=== PATIENT | male | born 1955 | race African-American/Black ===

== ENCOUNTER 2016-08-12 13:58 | Inpatient (IN) | payer OTHER ==
[~2016-08-12] VITALS: Ht 172.7 cm; Wt 88.0 kg
[~2016-08-12 13:58] MED LIST: ALBU0.63 NEB; ALBU2.5V5 NEB; ALPR0.5T PO; ASPI-482 PO; AZIT250T6 PO; BUPR200T31 PO; CEFP200T PO; CLON0.5T3 PO; FLUT1DIS3 IH; FLUT9.9S NS; GUAI12003 PO; HYDR25TA PO; HYDR25TA9 PO; IBUP-1060 PO; IPRA3AMP NEB; MONT10TA9 PO; PRAV40TA2 PO; PRED-220 PO; PRED50TA PO; PROVENTIL HFA6.7 GM IH; TIOT18CA IH; TRAZ100T12 PO; VENTOLIN HFA18 GM INH
--- NOTE | 2016-08-12 14:27 | EKG ---
[facility] [address] [place] [address] Test Date: 2016-08-12 Test Time: 14:12:20 Pat Name: BRANDY JUNIOR Department: Room: Gender: Male [facility] [place]: : [id number] Requested By: ANDREW CORRIGAN Order Number: [id number] Reading MD: Eber Torrez Measurements Intervals [place] Rate: 101 P: [place]: QRS: -34 QRSD: 78 T: 43 QT: 332 QTc: 431 Interpretive Statements SR PVC Electronically Signed On 08-16-2016 9:31:39 CDT by Eber Torrez
[2016-08-12] MEDS ORDERED: MORPHINE SULFATE 10 MG/ML VIAL. IV ONE (14:30)
[2016-08-12] MEDS ORDERED: methylPREDNISolone SOD SUCC PF 125 MG/2 ML VIAL. IV ONE (14:30)
[2016-08-12] MEDS ORDERED: ONDANSETRON PF 4 MG/2 ML VIAL. IV ONE (14:30)
[2016-08-12] MEDS ORDERED: IPRATRPIUM/ALBUTEROL 0.5/2.5MG 3 ML NEBU. NEB ONE (14:30)
[2016-08-12] MEDS ORDERED: cloNIDine HCL 0.1 MG TABLET PO ONE (14:30)
[2016-08-12 14:40] LABS: BASO % 1 % (0-3); EOS % 1 % (0-3); HEMATOCRIT 44.8 % (39.0-53.0); HEMOGLOBIN 15.2 g/dL (13.0-17.5); LYMPH # 1.9 x10^3/uL (1.0-4.8); LYMPH % 35 % (24-48); MEAN CORPUSCULAR HEMOGLOBIN 28 pg (25-35); MEAN CORPUSCULAR HGB CONC 34 g/dL (31-37); MEAN CORPUSCULAR VOLUME 82 fL (79-100); MONO % 10 % (0-9); NEUT % 54 % (31-73); PLATELET COUNT 239 x10^3/uL (140-400); RED BLOOD COUNT 5.45 x10^6/uL (4.30-5.70); RED CELL DISTRIBUTION WIDTH 16.4 % (11.5-14.5); WHITE BLOOD COUNT 5.3 x10^3/uL (4.0-11.0)
[2016-08-12 14:49] LABS: INR 1.1 (0.8-1.1); PROTHROMBIN TIME PATIENT 13.4 SEC (11.7-14.0)
[2016-08-12 14:56] LABS: CALCIUM 9.5 mg/dL (8.5-10.1); CREATININE 0.6 mg/dL (0.7-1.3); GFR 166.3; POTASSIUM 3.7 mmol/L (3.5-5.1)
[2016-08-12 15:03] LABS: ALBUMIN 3.4 g/dL (3.4-5.0); ALBUMIN/GLOBULIN RATIO 0.7 (1.0-1.7); MAGNESIUM 1.6 mg/dL (1.8-2.4); TOTAL BILIRUBIN 1.1 mg/dL (0.2-1.0); TOTAL PROTEIN 8.2 g/dL (6.4-8.2)
--- NOTE | 2016-08-12 15:23 | RAD ---
Exam performed: One view chest. Indication: Shortness of air today, history of COPD Date of Service: 08/12/2016 4:24 PM Comparison: 04/21/16. Single AP upright portable view chest findings: Cardiomediastinal silhouette is within limits of normal. No acute infiltrates, effusion or pneumothorax is detected. The bony structures are normal. Impression: No acute cardiopulmonary process is detected.
[2016-08-12 15:26] LABS: BILIRUBIN,URINE NEGATIVE (NEG); GLUCOSE,URINE NEGATIVE (NEG); NITRITE,URINE NEGATIVE (NEG); PROTEIN,URINE NEGATIVE (NEG-TRACE)
[2016-08-12 15:32] LABS: BARBITURATES NEG (NEG); BENZODIAZEPINES NEG (NEG); CANNABINOIDS NEG (NEG); COCAINE NEG (NEG); METHADONE NEG (NEG); OPIATES POS (NEG); PHENCYCLIDINE NEG (NEG)
[2016-08-12 15:36] LABS: RBC,URINE RARE /HPF (0-2)
--- NOTE | 2016-08-12 15:36 | PHYS DOC ---
Past Medical History Past Medical History: Anxiety, CHF, COPD, Depression, Hypertension, Hepatitis Past Surgical History: Other Additional Past Surgical Histo: R. ELVA, Emilie. LEG Alcohol Use: None Drug Use: None Adult General Chief Complaint Chief Complaint: SHORTNESS OF BREATH HPI HPI Patient is a 61 year old male presenting to the emergency department for evaluation of shortness of breath that started several days ago and his worsening. She says that he has a history of COPD and thinks he may have congestive heart failure as well. He wears 2 L of oxygen at baseline and says he is bending to wear more. He has had a cough that is mostly nonproductive. No fevers chills nausea vomiting or other systemic symptoms. He says that he does feel some chest pain that is intermittent and that he can barely walk without getting severely dyspneic. Review of Systems Review of Systems Constitutional: Denies fever or chills [] Eyes: Denies change in visual acuity, redness, or eye pain [] HENT: Denies nasal congestion or sore throat [] Respiratory: + cough and shortness of breath [] Cardiovascular: + CP GI: Denies abdominal pain, nausea, vomiting, bloody stools or diarrhea [] : Denies dysuria or hematuria [] Musculoskeletal: Denies back pain or joint pain [] Integument: Denies rash or skin lesions [] Neurologic: Denies headache, focal weakness or sensory changes [] Current Medications Current Medications Current Medications Medications (Trade) Dose Ordered Sig/Isabel Start Time Stop Time Status Last Admin Dose Admin Albuterol/ Ipratropium (Duoneb) 3 ml 1X ONCE 08/12/16 14:30 08/12/16 14:31 DC 08/12/16 15:08 3 ML Clonidine HCl (Catapres) 0.1 mg 1X ONCE 08/12/16 14:30 08/12/16 14:31 DC 08/12/16 14:20 0.1 MG Fentanyl Citrate (Fentanyl 2ml Vial) 50 mcg PRN Q2HR PRN 08/12/16 15:45 08/13/16 15:44 Methylprednisolone Sodium Succinate (Solu-Medrol 125mg Vial) 125 mg 1X ONCE 08/12/16 14:30 08/12/16 14:31 DC 08/12/16 14:20 125 MG Morphine Sulfate 5 mg 1X ONCE 08/12/16 14:30 08/12/16 14:31 DC 08/12/16 14:20 5 MG Ondansetron HCl (Zofran) 4 mg PRN Q8HRS PRN 08/12/16 15:45 08/13/16 15:44 Allergies Allergies Allergies Coded Allergies Type Severity Reaction Last Updated Verified I S O L A T I O N *CONTACT* Allergy Unknown 03/31/16 Yes No Known Medication Allergies Allergy Unknown 03/22/16 Yes latex Allergy Unknown 08/12/16 Yes Physical Exam Physical Exam Constitutional: Well developed, well nourished, moderate respiratory distress, non-toxic appearance. [] HENT: Normocephalic, atraumatic, bilateral external ears normal, oropharynx moist, no oral exudates, nose normal. [] Eyes: PERRLA, EOMI, conjunctiva normal, no discharge. [] Neck: Normal range of motion, no tenderness, supple, no stridor. [] Cardiovascular:Heart rate regular rhythm, no murmur [] Lungs & Thorax: Bilateral breath sounds are quite diminished with inspiratory and expiratory wheezing Abdomen: Bowel sounds normal, soft, no tenderness, no masses, no pulsatile masses. [] Skin: Warm, dry, no erythema, no rash. [] Back: No tenderness, no CVA tenderness. [] Extremities: No tenderness, no cyanosis, no clubbing, ROM intact, + 1-2+ edema BL. [] Neurologic: Alert and oriented X 3, normal motor function, normal sensory function, no focal deficits noted. [] Current Patient Data Vital Signs Vital Signs Date Time Temp Pulse Resp B/P (MAP) Pulse Ox O2 Delivery O2 Flow Rate FiO2 08/12/16 15:09 99 Nasal Cannula 3.0 08/12/16 14:20 104 189/111 08/12/16 14:10 98.5 24 98.5 Lab Values Laboratory Tests Test 08/12/16 14:20 08/12/16 15:17 White Blood Count 5.3 x10^3/uL (4.0-11.0) Red Blood Count 5.45 x10^6/uL (4.30-5.70) Hemoglobin 15.2 g/dL (13.0-17.5) Hematocrit 44.8 % (39.0-53.0) Mean Corpuscular Volume 82 fL (79-100) Mean Corpuscular Hemoglobin 28 pg (25-35) Mean Corpuscular Hemoglobin Concent 34 g/dL (31-37) Red Cell Distribution Width 16.4 % (11.5-14.5) H Platelet Count 239 x10^3/uL (140-400) Neutrophils (%) (Auto) 54 % (31-73) Lymphocytes (%) (Auto) 35 % (24-48) Monocytes (%) (Auto) 10 % (0-9) H Eosinophils (%) (Auto) 1 % (0-3) Basophils (%) (Auto) 1 % (0-3) Neutrophils # (Auto) 2.8 x10^3uL (1.8-7.7) Lymphocytes # (Auto) 1.9 x10^3/uL (1.0-4.8) Monocytes # (Auto) 0.5 x10^3/uL (0.0-1.1) Eosinophils # (Auto) 0.0 x10^3/uL (0.0-0.7) Basophils # (Auto) 0.0 x10^3/uL (0.0-0.2) Prothrombin Time 13.4 SEC (11.7-14.0) Prothrombin Time INR 1.1 (0.8-1.1) PTT 31 SEC (24-38) Sodium Level 135 mmol/L (136-145) L Potassium Level 3.7 mmol/L (3.5-5.1) Chloride Level 98 mmol/L (98-107) Carbon Dioxide Level 29 mmol/L (21-32) Anion Gap 8 (6-14) Blood Urea Nitrogen 7 mg/dL (8-26) L Creatinine 0.6 mg/dL (0.7-1.3) L Estimated GFR (Cockcroft-Gault) 166.3 BUN/Creatinine Ratio 12 (6-20) Glucose Level 104 mg/dL (70-99) H Lactic Acid Level 1.5 mmol/L (0.4-2.0) Calcium Level 9.5 mg/dL (8.5-10.1) Magnesium Level 1.6 mg/dL (1.8-2.4) L Total Bilirubin 1.1 mg/dL (0.2-1.0) H Aspartate Amino Transferase (AST) 79 U/L (15-37) H Alanine Aminotransferase (ALT) 79 U/L (16-63) H Alkaline Phosphatase 82 U/L (46-116) Creatine Kinase 261 U/L (39-308) Troponin I Quantitative < 0.017 ng/mL (0.000-0.055) AK-Bwz-L-Type Natriuretic Peptide 39 pg/mL (0-124) Total Protein 8.2 g/dL (6.4-8.2) Albumin 3.4 g/dL (3.4-5.0) Albumin/Globulin Ratio 0.7 (1.0-1.7) L Lipase 70 U/L (73-393) L Ethyl Alcohol Level < 10 mg/dL (0-10) Urine Collection Type Void Urine Color Yellow Urine Clarity Clear Urine pH 7.0 Urine Specific [place] 1.010 Urine Protein Negative mg/dL (NEG-TRACE) Urine Glucose (UA) Negative mg/dL (NEG) Urine Ketones (Stick) Trace mg/dL (NEG) Urine Blood Negative (NEG) Urine Nitrite Negative (NEG) Urine Bilirubin Negative (NEG) Urine Urobilinogen Dipstick 1.0 mg/dL (0.2 mg/dL) Urine Leukocyte Esterase Negative (NEG) Urine RBC Rare /HPF (0-2) Urine WBC Rare /HPF (0-4) Urine Squamous Epithelial Cells Few /LPF Urine Bacteria 0 /HPF (0-FEW) Urine Opiates Screen Pos (NEG) Urine Methadone Screen Neg (NEG) Urine Barbiturates Neg (NEG) Urine Phencyclidine Screen Neg (NEG) Urine Amphetamine/Methamphetamine Neg (NEG) Urine Benzodiazepines Screen Neg (NEG) Urine Cocaine Screen Neg (NEG) Urine Cannabinoids Screen Neg (NEG) Urine Ethyl Alcohol Neg (NEG) Laboratory Tests 08/12/16 14:20 Laboratory Tests 08/12/16 14:20 EKG EKG Normal sinus rhythm at 91 beats per minutes with leftward axis no obvious ST elevation or depression and normal T waves. Radiology/Procedures Radiology/Procedures Exam performed: One view chest. Indication: Shortness of air today, history of COPD Date of Service: 08/12/2016 4:24 PM Comparison: 04/21/16. Single AP upright portable view chest findings: Cardiomediastinal silhouette is within limits of normal. No acute infiltrates, effusion or pneumothorax is detected. The bony structures are normal. Impression: No acute cardiopulmonary process is detected. DICTATED and SIGNED BY: JETT ALFORD MD DATE: 08/12/16 1520 Course & Med Decision Making Course & Med Decision Making Patient with acute COPD exacerbation and he was treated aggressively with IV steroids and breathing treatments. Patient is still dyspneic and says that he feels poorly so he'll be admitted for further observation and treatment. Dragon Disclaimer Dragon Disclaimer This electronic medical record was generated, in whole or in part, using a voice recognition dictation system. Departure Departure Impression: Primary Impression: COPD with acute exacerbation Disposition: ADMITTED INPATIENT Admitting Physician: Sera Cortes Condition: IMPROVED Referrals: NO PCP (PCP) ANDREW CORRIGAN DO August 12, 2016 15:36
[2016-08-12 15:37] LABS: BACTERIA,URINE 0 /HPF (0-FEW); SQUAMOUS EPITHELIAL CELL,UR FEW /LPF; WBC,URINE RARE /HPF (0-4)
[2016-08-12] MEDS ORDERED: ONDANSETRON PF 4 MG/2 ML VIAL. IV PRN (15:45)
[2016-08-12] MEDS ORDERED: fentaNYL PF VIAL 100 MCG/2 ML VIAL IV PRN (15:45)
[2016-08-12 16:45] VITALS: BP 139/93
[2016-08-12] MEDS ORDERED: hydrOXYzine 10 MG TABLET PO PRN (17:30)
[2016-08-12] MEDS: IPRATRPIUM/ALBUTEROL 0.5/2.5MG 3 ML NEBU. NEB SCH ×2 (17:39→19:58)
--- NOTE | 2016-08-12 18:16 | PDOC1 ---
History and Physical Date of Admission Date of Admission DATE: 08/12/16 TIME: 18:10 Identification/Chief Complaint Chief Complaint shortness of breath Problems: Source Source: Chart review, Patient History of Present Illness History of Present Illness MR. Bocanegra, is a 61 year old male admitted from ER, worsening shortness of breath and cough. He has some new sputum production and was hypoxic on his baseline 02 of 2 liters. 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 He has an electric wheelchair due to his COPD, reported CHF to the ER, not to me. Past Medical History Pulmonary: Asthma, Bronchitis, COPD Heme/Onc: No pertinent hx Hepatobiliary: No pertinent hx Psych: Anxiety Endocrine: No pertinent hx Past Surgical History Past Surgical History: No pertinent history Family History Family History: Family History Unknown Social History Smoke: Quit ALCOHOL: none Drugs: None Current Problem List Problem List Problems Medical Problems: (1) COPD with acute exacerbation Status: Acute Problems: Current Medications Current Medications Current Medications Morphine Sulfate 5 mg 1X ONCE IV Last administered on 08/12/16 14:20; Start 08/12/16 at 14:30; Stop 08/12/16 at 14:31; Status DC Methylprednisolone Sodium Succinate (Solu-Medrol 125mg Vial) 125 mg 1X ONCE IV Last administered on 08/12/16 14:20; Start 08/12/16 at 14:30; Stop 08/12/16 at 14:31; Status DC Ondansetron HCl (Zofran) 8 mg 1X ONCE IV Last administered on 08/12/16 14:20 ; Start 08/12/16 at 14:30; Stop 08/12/16 at 14:31; Status DC Albuterol/ Ipratropium (Duoneb) 3 ml 1X ONCE NEB Last administered on 15:08; Start 08/12/16 at 14:30; Stop 08/12/16 at 14:31; Status DC Clonidine HCl (Catapres) 0.1 mg 1X ONCE PO Last administered on 08/12/16 14: 20; Start 08/12/16 at 14:30; Stop 08/12/16 at 14:31; Status DC Ondansetron HCl (Zofran) 4 mg PRN Q8HRS PRN IV NAUSEA/VOMITING; Start 08/12/16 at 15:45; Stop 08/13/16 at 15:44 Fentanyl Citrate (Fentanyl 2ml Vial) 50 mcg PRN Q2HR PRN IV PAIN; Start at 15:45; Stop 08/13/16 at 15:44 Albuterol/ Ipratropium (Duoneb) 3 ml RTQID NEB ; Start 08/12/16 at 20:00; Stop 08/12/16 at 20:00; Status DC Alprazolam (Xanax) 0.5 mg PRN DAILY PRN PO ANXIETY; Start 08/12/16 at 17:30 Aspirin (Ecotrin) 81 mg DAILY PO ; Start 08/13/16 at 09:00 Clonazepam (KlonoPIN) 0.5 mg PRN TID PRN PO ANXIETY / AGITATION; Start at 17:30 Hydrochlorothiazide (Hydrodiuril) 25 mg DAILY PO ; Start 08/13/16 at 09:00 Albuterol Sulfate (Ventolin Neb Soln) 2.5 mg PRN Q4HRS PRN NEB SHORTNESS OF BREATH; Start 08/12/16 at 18:00 Albuterol/ Ipratropium (Duoneb) 3 ml Q4HRS W/A NEB Last administered on t 17:39; Start 08/12/16 at 18:00 Montelukast Sodium (Singulair) 5 mg HS PO ; Start 08/12/16 at 21:00 Trazodone HCl (Desyrel) 100 mg QHS PO ; Start 08/12/16 at 21:00 Bupropion HCl (Wellbutrin Xl) 150 mg BID PO ; Start 08/12/16 at 21:00 Atorvastatin Calcium (Lipitor) 10 mg QHS PO ; Start 08/12/16 at 21:00 Hydroxyzine HCl (Atarax) 10 mg PRN Q6HRS PRN PO ITCHING; Start 08/12/16 at 17: 30 Budesonide (Pulmicort) 0.5 mg RTBID NEB ; Start 08/12/16 at 20:00 Prednisone (Prednisone) 40 mg DAILY PO ; Start 08/13/16 at 09:00 Active Scripts Active Cefpodoxime Proxetil 200 Mg Tablet 200 Mg PO BID Advair 250-50 Diskus (Fluticasone/Salmeterol) 1 Each Disk.w.dev 1 Inh IH BID Duoneb 0.5-3(2.5) Mg/3 Ml (Albuterol/Ipratropium) 3 Ml Ampul.neb 3 Ml NEB RTQID Hydrochlorothiazide Tablet (Hydrochlorothiazide) 25 Mg Tablet 25 Mg PO DAILY Albuterol Sulfate Neb Soln (Albuterol Sulfate) 2.5 Mg/3 Ml Vial.neb 2.5 Mg NEB PRN Q2HR PRN Montelukast Sodium Tablet (Montelukast Sodium) 10 Mg Tablet 5 Mg PO HS Spiriva (Tiotropium Hart) 18 Mcg Cap.w.dev 2 Inh IH DAILY Proventil Hfa Inhaler (Albuterol Sulfate) 6.7 Gm Hfa.aer.ad 1 Puff IH PRN Q4HRS PRN Advair 250-50 Diskus (Fluticasone/Salmeterol) 1 Each Disk.w.dev 1 Puff IH BID Flonase Allergy Relief (Fluticasone Propionate) 9.9 Ml [place].susp 2 Sprays NS BID Xanax (Alprazolam) 0.5 Mg Tablet 1 Tab PO DAILY Reported Hydroxyzine Hcl 25 Mg Tablet 1 Tab PO PRN QID PRN Hydrochlorothiazide Tablet (Hydrochlorothiazide) 25 Mg Tablet 1 Tab PO DAILY Bupropion HCl ER (Bupropion HCl) 200 Mg Tablet.er 150 Mg PO BID Aspir 81 (Aspirin) 81 Mg Tablet.dr 1 Tab PO DAILY Clonazepam 0.5 Mg Tablet 1 Tab PO PRN TID PRN Pravastatin Sodium 40 Mg Tablet 1 Tab PO QHS Ibuprofen 800 Mg Tablet 800 Mg PO DAILY PRN Duoneb 0.5-3(2.5) Mg/3 Ml (Albuterol/Ipratropium) 3 Ml Ampul.neb 3 Ml NEB Q4HRS PRN Albuterol Sulfate Neb Soln (Albuterol Sulfate) 0.63 Mg/3 Ml Vial.neb 2.5 Mg NEB PRN Q2HR PRN Trazodone Hcl 100 Mg Tablet 1 Tab PO QHS Allergies Allergies: Coded Allergies: I S O L A T I O N *CONTACT* (Verified Allergy, Unknown, 12/28/16) mrsa No Known Medication Allergies (Verified Allergy, Unknown, 03/22/16) latex (Verified Allergy, Unknown, 08/12/16) ROS General: YES: Fatigue, Malaise, No: Chills, Night Sweats, Appetite, Other PSYCHOLOGICAL ROS: YES: Sleep disturbances, No: Anxiety, Behavioral Disorder, Concentration difficultie, Decreased libido , Depression, Disorientation, Hallucinations, Hostility, Irritablity, Memory difficulties, Mood Swings, Obsessive thoughts, Other Eyes: Yes Eye Pain, No Blurry vision, No Decreased vision, No Double vision, No Dry eyes, No Excessive tearing, No Itchy Eyes, No Loss of vision, No Photophobia, No Scotomata, No Uses contacts, No Uses glasses, No Other HEENT: YES: Heacaches, No: Visual Changes, Hearing change, Nasal congestion, Nasal discharge, Oral lesions, Sinus pain, Sore Throat, Epistaxis, Sneezing, Snoring, Tinnitus, Vertigo, Vocal changes, Other Respiratory: YES: Cough, Pleuritic Pain, Shortness of breath, Sputum Changes, No: Hemoptysis, Orthopnea, SOB with excertion, Stridor, Tachypnea, Wheezing, Other Cardiovascular: No Chest Pain, No Palpitations, No Orthopnea, No Paroxysmal Noc. Dyspnea, No Edema, No Lt Headedness, No Other Gastrointestinal: No Nausea, No Vomiting, No Abdominal Pain, No Diarrhea, No Constipation, No Melena, No Hematochezia, No Other Genitourinary: No Dysuria, No Frequency, No Incontinence, No Hematuria, No Retention, No Discharge, No Urgency, No Pain, No Flank Pain, No Other, No , No , No , No , No , No , No Musculoskeletal: Yes Gait Disturbance, Yes Muscular Weakness (?), No Joint Pain, No Joint Stiffness, No Joint Swelling, No Muscle Pain, No Pain In:, No Swelling In:, No Other Neurological: Yes Gait Disturbance, No Behavorial Changes, No Bowel/Bladder ControlChng, No Confusion, No Dizziness, No Headaches, No Impaired Coord/balance, No Memory Loss, No Numbness/ Tingling, No Seizures, No Speech Problems, No Tremors, No Visual Changes, No Weakness, No Other Skin: No Dry Skin, No Eczema, No Hair Changes, No Lumps, No Mole Changes, No Mottling, No Nail Changes, No Pruritus, No Rash, No Skin Lesion Changes, No Other, No Acne Physical Exam General: Alert, Oriented X3, Cooperative, moderate distress (coughing) HEENT: Atraumatic, PERRLA Lungs: Other (rapid, very shallow breaths, no rhonchi, min wheeze, very dull bases) Heart: S1S2, RRR Abdomen: Normal bowel sounds, Soft Rectal Exam: not examined Extremities: Other (1+ pedal edema) Skin: No significant lesion Neuro: Normal tone, Sensation intact Psych/Mental Status: Other (anxiety noted) Vitals Vitals Vital Signs Date Time Temp Pulse Resp B/P (MAP) Pulse Ox O2 Delivery O2 Flow Rate FiO2 08/12/16 17:42 97 Nasal Cannula 3.0 08/12/16 16:45 98.1 98 22 139/93 (108) 98.1 Labs Labs Laboratory Tests Test 08/12/16 14:20 08/12/16 15:17 White Blood Count 5.3 x10^3/uL (4.0-11.0) Red Blood Count 5.45 x10^6/uL (4.30-5.70) Hemoglobin 15.2 g/dL (13.0-17.5) Hematocrit 44.8 % (39.0-53.0) Mean Corpuscular Volume 82 fL (79-100) Mean Corpuscular Hemoglobin 28 pg (25-35) Mean Corpuscular Hemoglobin Concent 34 g/dL (31-37) Red Cell Distribution Width 16.4 % (11.5-14.5) Platelet Count 239 x10^3/uL (140-400) Neutrophils (%) (Auto) 54 % (31-73) Lymphocytes (%) (Auto) 35 % (24-48) Monocytes (%) (Auto) 10 % (0-9) Eosinophils (%) (Auto) 1 % (0-3) Basophils (%) (Auto) 1 % (0-3) Neutrophils # (Auto) 2.8 x10^3uL (1.8-7.7) Lymphocytes # (Auto) 1.9 x10^3/uL (1.0-4.8) Monocytes # (Auto) 0.5 x10^3/uL (0.0-1.1) Eosinophils # (Auto) 0.0 x10^3/uL (0.0-0.7) Basophils # (Auto) 0.0 x10^3/uL (0.0-0.2) Prothrombin Time 13.4 SEC (11.7-14.0) Prothromb Time International Ratio 1.1 (0.8-1.1) Activated Partial Thromboplast Time 31 SEC (24-38) Sodium Level 135 mmol/L (136-145) Potassium Level 3.7 mmol/L (3.5-5.1) Chloride Level 98 mmol/L (98-107) Carbon Dioxide Level 29 mmol/L (21-32) Anion Gap 8 (6-14) Blood Urea Nitrogen 7 mg/dL (8-26) Creatinine 0.6 mg/dL (0.7-1.3) Estimated GFR (Cockcroft-Gault) 166.3 BUN/Creatinine Ratio 12 (6-20) Glucose Level 104 mg/dL (70-99) Lactic Acid Level 1.5 mmol/L (0.4-2.0) Calcium Level 9.5 mg/dL (8.5-10.1) Magnesium Level 1.6 mg/dL (1.8-2.4) Total Bilirubin 1.1 mg/dL (0.2-1.0) Aspartate Amino Transf (AST/SGOT) 79 U/L (15-37) Alanine Aminotransferase (ALT/SGPT) 79 U/L (16-63) Alkaline Phosphatase 82 U/L (46-116) Creatine Kinase 261 U/L (39-308) Troponin I Quantitative < 0.017 ng/mL (0.000-0.055) FE-Jkc-U-Type Natriuretic Peptide 39 pg/mL (0-124) Total Protein 8.2 g/dL (6.4-8.2) Albumin 3.4 g/dL (3.4-5.0) Albumin/Globulin Ratio 0.7 (1.0-1.7) Lipase 70 U/L (73-393) Ethyl Alcohol Level < 10 mg/dL (0-10) Urine Collection Type Void Urine Color Yellow Urine Clarity Clear Urine pH 7.0 Urine Specific [place] 1.010 Urine Protein Negative mg/dL (NEG-TRACE) Urine Glucose (UA) Negative mg/dL (NEG) Urine Ketones (Stick) Trace mg/dL (NEG) Urine Blood Negative (NEG) Urine Nitrite Negative (NEG) Urine Bilirubin Negative (NEG) Urine Urobilinogen Dipstick 1.0 mg/dL (0.2 mg/dL) Urine Leukocyte Esterase Negative (NEG) Urine RBC Rare /HPF (0-2) Urine WBC Rare /HPF (0-4) Urine Squamous Epithelial Cells Few /LPF Urine Bacteria 0 /HPF (0-FEW) Urine Opiates Screen Pos (NEG) Urine Methadone Screen Neg (NEG) Urine Barbiturates Neg (NEG) Urine Phencyclidine Screen Neg (NEG) Urine Amphetamine/Methamphetamine Neg (NEG) Urine Benzodiazepines Screen Neg (NEG) Urine Cocaine Screen Neg (NEG) Urine Cannabinoids Screen Neg (NEG) Urine Ethyl Alcohol Neg (NEG) Laboratory Tests Test 08/12/16 14:20 08/12/16 15:17 White Blood Count 5.3 x10^3/uL (4.0-11.0) Red Blood Count 5.45 x10^6/uL (4.30-5.70) Hemoglobin 15.2 g/dL (13.0-17.5) Hematocrit 44.8 % (39.0-53.0) Mean Corpuscular Volume 82 fL (79-100) Mean Corpuscular Hemoglobin 28 pg (25-35) Mean Corpuscular Hemoglobin Concent 34 g/dL (31-37) Red Cell Distribution Width 16.4 % (11.5-14.5) Platelet Count 239 x10^3/uL (140-400) Neutrophils (%) (Auto) 54 % (31-73) Lymphocytes (%) (Auto) 35 % (24-48) Monocytes (%) (Auto) 10 % (0-9) Eosinophils (%) (Auto) 1 % (0-3) Basophils (%) (Auto) 1 % (0-3) Neutrophils # (Auto) 2.8 x10^3uL (1.8-7.7) Lymphocytes # (Auto) 1.9 x10^3/uL (1.0-4.8) Monocytes # (Auto) 0.5 x10^3/uL (0.0-1.1) Eosinophils # (Auto) 0.0 x10^3/uL (0.0-0.7) Basophils # (Auto) 0.0 x10^3/uL (0.0-0.2) Prothrombin Time 13.4 SEC (11.7-14.0) Prothromb Time International Ratio 1.1 (0.8-1.1) Activated Partial Thromboplast Time 31 SEC (24-38) Sodium Level 135 mmol/L (136-145) Potassium Level 3.7 mmol/L (3.5-5.1) Chloride Level 98 mmol/L (98-107) Carbon Dioxide Level 29 mmol/L (21-32) Anion Gap 8 (6-14) Blood Urea Nitrogen 7 mg/dL (8-26) Creatinine 0.6 mg/dL (0.7-1.3) Estimated GFR (Cockcroft-Gault) 166.3 BUN/Creatinine Ratio 12 (6-20) Glucose Level 104 mg/dL (70-99) Lactic Acid Level 1.5 mmol/L (0.4-2.0) Calcium Level 9.5 mg/dL (8.5-10.1) Magnesium Level 1.6 mg/dL (1.8-2.4) Total Bilirubin 1.1 mg/dL (0.2-1.0) Aspartate Amino Transf (AST/SGOT) 79 U/L (15-37) Alanine Aminotransferase (ALT/SGPT) 79 U/L (16-63) Alkaline Phosphatase 82 U/L (46-116) Creatine Kinase 261 U/L (39-308) Troponin I Quantitative < 0.017 ng/mL (0.000-0.055) VT-Hpo-S-Type Natriuretic Peptide 39 pg/mL (0-124) Total Protein 8.2 g/dL (6.4-8.2) Albumin 3.4 g/dL (3.4-5.0) Albumin/Globulin Ratio 0.7 (1.0-1.7) Lipase 70 U/L (73-393) Ethyl Alcohol Level < 10 mg/dL (0-10) Urine Collection Type Void Urine Color Yellow Urine Clarity Clear Urine pH 7.0 Urine Specific [place] 1.010 Urine Protein Negative mg/dL (NEG-TRACE) Urine Glucose (UA) Negative mg/dL (NEG) Urine Ketones (Stick) Trace mg/dL (NEG) Urine Blood Negative (NEG) Urine Nitrite Negative (NEG) Urine Bilirubin Negative (NEG) Urine Urobilinogen Dipstick 1.0 mg/dL (0.2 mg/dL) Urine Leukocyte Esterase Negative (NEG) Urine RBC Rare /HPF (0-2) Urine WBC Rare /HPF (0-4) Urine Squamous Epithelial Cells Few /LPF Urine Bacteria 0 /HPF (0-FEW) Urine Opiates Screen Pos (NEG) Urine Methadone Screen Neg (NEG) Urine Barbiturates Neg (NEG) Urine Phencyclidine Screen Neg (NEG) Urine Amphetamine/Methamphetamine Neg (NEG) Urine Benzodiazepines Screen Neg (NEG) Urine Cocaine Screen Neg (NEG) Urine Cannabinoids Screen Neg (NEG) Urine Ethyl Alcohol Neg (NEG) VTE Prophylaxis Ordered VTE Prophylaxis Devices: Yes VTE Pharmacological Prophylaxi: Yes Assessment/Plan Assessment/Plan acute on chronic hypoxic and hypercarbic respiratory failure COPD with acute bronchitis +SIRS criteria, from resp. insuffiency, anxiety d/o and bronchitis, obesity, BMI 33 weakness and debility anxiety d/o POOJA PULLIAM MD August 12, 2016 18:16
[2016-08-12] MEDS: DOXYCYCLINE HYCLATE 100 MG TABLET PO SCH (18:26)
[2016-08-12] MEDS: ALPRAZolam 0.5 MG TABLET PO PRN (18:27)
[2016-08-12 19:00] VITALS: BP 140/99
--- NOTE | 2016-08-12 19:05 | ACF ---
Admission Forms Criteria COPD Clinical Indications for Admission to Inpatient Care (Place 'X' for any and all applicable criteria): Admission is indicated for ANY ONE of the following (1)(2)(3): [X]I. Acute exacerbation by high-risk comorbidity (e.g., pneumonia, dysrhythmia, heart failure, pleural effusion, pneumothorax) or severe underlying COPD (e.g., steroid dependent) [ ]II. Inpatient admission required rather than observation care (see Chronic Obstructive Pulmonary Disease: Observation Care) because of ANY ONE of the following: [ ]a) New or pre-existing signs or symptoms of COPD (eg, dyspnea or Tachypnea at rest or with minimal activity) that persist despite outpatient and observation care treatment [ ]b) New-onset hypoxemia (room air SaO2 less than 90%, PO2 less than 60 mm Hg (8.0 kPa)) that persists despite outpatient and observation care treatment [ ]c) Worsening of pre-existing hypoxemia (eg, new or increased requirement for supplemental oxygen to maintain oxygenation at baseline level) that persists despite outpatient and observation care treatment, with oxygen treatment needs performable only in acute inpatient setting [ ]d) Hypercarbia (PCO2 greater than 40 mm Hg (5.3 kPa))-induced respiratory acidosis (pH less than 7.35) that persists despite outpatient and observation care treatment [ ]e) Supplemental oxygen or respiratory treatments for over 24 hours that are performable only in acute inpatient setting [ ]f) Chest tube placement with active evacuation (e.g., suction, drainage) (5) [ ]g) Other condition, treatment or monitoring requiring inpatient admission [ ]III. Planned invasive surgical or diagnostic procedures requiring acute- care hospitalization [ ]IV. Acute respiratory failure (e.g., uncompensated hypercarbia, severe hypoxemia) [ ]V. Severe comorbid condition (e.g., severe steroid myopathy, acute vertebral fracture) that has acutely worsened pulmonary function [ ]. Confusion state, lethargy, obtundation, stupor or coma Extended stay beyond goal length of stay may be needed for (31)(32): [ ]a ) Respiratory Failure. [ ]b) Severe or persisting hypoxemia or hypercarbia [ ]c) Severe or persistent dyspnea [ ]d) Comorbidities (e.g. chronic heart failure, atrial fibrillation with rapid response, pneumonia) [ ]e) Malnutrition The original [facility] content created by [facility] has been revised. The portions of the content which have been revised are identified through the use of italic text or in bold, and [facility] has neither reviewed nor approved the modified material. All other unmodified content is copyright [facility]. Please see references footnoted in the original [facility] edition 2016 Admission Criteria Met?: Yes CAIN ESPINAL August 12, 2016 19:05
[2016-08-12] MEDS: BUDESONIDE 0.5 MG/2 ML NEBU. NEB SCH (19:57)
[2016-08-12] MEDS ORDERED: IPRATRPIUM/ALBUTEROL 0.5/2.5MG 3 ML NEBU. NEB SCH (20:00)
[2016-08-12] MEDS: traZODone 100 MG TABLET. PO SCH (21:01)
[2016-08-12] MEDS: ATORVASTATIN CALCIUM 10 MG TABLET. PO SCH (21:01)
[2016-08-12] MEDS: buPROPion XL 150 MG TAB.ER.24H. PO SCH (21:02)
[2016-08-12] MEDS: MONTELUKAST SODIUM 10 MG TABLET. PO SCH (21:02)
[2016-08-12 23:00] VITALS: BP 136/92
[2016-08-13] MEDS: ALBUTEROL SULFATE 2.5 MG/3 ML NEBU. NEB PRN (00:07)
[2016-08-13 03:00] VITALS: BP 122/87
[2016-08-13 04:04] LABS: BASO % 1 % (0-3); EOS % 0 % (0-3); HEMATOCRIT 44.5 % (39.0-53.0); LYMPH # 0.7 x10^3/uL (1.0-4.8); LYMPH % 16 % (24-48); MEAN CORPUSCULAR HEMOGLOBIN 28 pg (25-35); MEAN CORPUSCULAR HGB CONC 34 g/dL (31-37); MEAN CORPUSCULAR VOLUME 83 fL (79-100); MONO % 3 % (0-9); NEUT % 80 % (31-73); PLATELET COUNT 230 x10^3/uL (140-400); RED BLOOD COUNT 5.33 x10^6/uL (4.30-5.70); RED CELL DISTRIBUTION WIDTH 16.6 % (11.5-14.5); WHITE BLOOD COUNT 4.3 x10^3/uL (4.0-11.0)
[2016-08-13 04:16] LABS: CALCIUM 9.3 mg/dL (8.5-10.1); CREATININE 0.7 mg/dL (0.7-1.3); GFR 139.2; POTASSIUM 4.3 mmol/L (3.5-5.1)
[2016-08-13] MEDS: IPRATRPIUM/ALBUTEROL 0.5/2.5MG 3 ML NEBU. NEB SCH ×5 (06:59→22:00)
[2016-08-13 07:00] VITALS: BP 118/78
[2016-08-13] MEDS: BUDESONIDE 0.5 MG/2 ML NEBU. NEB SCH ×2 (07:00→19:39)
[2016-08-13] MEDS ORDERED: PNEUMOC CONJ VACC 23-VALENT 0.5 ML VIAL. VAX IM ONE (09:00)
[2016-08-13] MEDS ORDERED: PNEUMOCOCCAL VAX SCREEN BY RX. MC ONE (09:00)
[2016-08-13] MEDS: ASPIRIN ENTERIC COATED 81 MG TABLET.DR. PO SCH (09:02)
[2016-08-13] MEDS: buPROPion XL 150 MG TAB.ER.24H. PO SCH ×2 (09:02→21:07)
[2016-08-13] MEDS: hydroCHLOROthiazide 25 MG TABLET PO SCH (09:02)
[2016-08-13] MEDS: DOXYCYCLINE HYCLATE 100 MG TABLET PO SCH ×2 (09:02→21:06)
[2016-08-13] MEDS: predniSONE 20 MG TABLET PO SCH (09:02)
[2016-08-13] MEDS: ALPRAZolam 0.5 MG TABLET PO PRN (09:05)
--- NOTE | 2016-08-13 10:26 | PDOC2 ---
BENNY HERRERA HEEL STAINER 08/13/16 1026: CARDIAC CONSULT DATE OF CONSULT Date of Consult DATE: 08/13/16 TIME: 10:17 REASON FOR CONSULT Reason for Consult: Chest pain REFERRING PHYSICIAN Referring Physician: Mary Alice SOURCE Source: Chart review, Patient HISTORY OF PRESENT ILLNESS HISTORY OF PRESENT ILLNESS This is a pleasant 61 yo male admitted for complains of SOA. Reports he had been wheezing at home and his nebulizers has not been effective. He repeatedly denied for me of having any chest pain. Denies any nausea or palpitations. He is mainly WC bound due to his significant COPD. Able to transfer and take few steps but otherwise limited mobility. He uses 2-4 LPM of O2 continuously at home and felt that this was not helping. Denies any CAD. VTE but has significant COPD. PAST MEDICAL HISTORY Cardiovascular: Hyperlipidemia Pulmonary: COPD (O2 dependetn with baseline at 2LPM) CENTRAL NERVOUS SYSTEM: Other (No pertinent history ) GI: GERD, Other (Abdominal wall hernia) Heme/Onc: No pertinent hx Hepatobiliary: Hep A/B/C (C) Psych: Anxiety, Depression Musculoskeletal: Osteoarthritis Rheumatologic: No pertinent hx Infectious disease: No pertinent hx, Other (MRSA) Renal/: UTI Endocrine: No pertinent hx Dermatology: No pertinent hx PAST SURGICAL HISTORY Past Surgical History: Other (right hand surgery) SOCIAL HISTORY Smoke: <1 pack per day (>30 yrs) ALCOHOL: occassional Drugs: None Lives: Alone CURRENT MEDICATIONS CURRENT MEDICATIONS Current Medications Medications (Trade) Dose Ordered Sig/Isabel Route PRN Reason Start Time Stop Time Status Last Admin Dose Admin Morphine Sulfate 5 mg 1X ONCE IV 08/12/16 14:30 08/12/16 14:31 DC 08/12/16 14:20 Methylprednisolone Sodium Succinate (Solu-Medrol 125mg Vial) 125 mg 1X ONCE IV 08/12/16 14:30 08/12/16 14:31 DC 08/12/16 14:20 Ondansetron HCl (Zofran) 8 mg 1X ONCE IV 08/12/16 14:30 08/12/16 14:31 DC 08/12/16 14:20 Albuterol/ Ipratropium (Duoneb) 3 ml 1X ONCE NEB 08/12/16 14:30 08/12/16 14:31 DC 08/12/16 15:08 Clonidine HCl (Catapres) 0.1 mg 1X ONCE PO 08/12/16 14:30 08/12/16 14:31 DC 08/12/16 14:20 Alprazolam (Xanax) 0.5 mg PRN DAILY PRN PO ANXIETY 08/12/16 17:30 08/13/16 09:05 Aspirin (Ecotrin) 81 mg DAILY PO 08/13/16 09:00 08/13/16 09:02 Hydrochlorothiazide (Hydrodiuril) 25 mg DAILY PO 08/13/16 09:00 08/13/16 09:02 Albuterol Sulfate (Ventolin Neb Soln) 2.5 mg PRN Q4HRS PRN NEB SHORTNESS OF BREATH 08/12/16 18:00 08/13/16 00:07 Albuterol/ Ipratropium (Duoneb) 3 ml Q4HRS W/A NEB 08/12/16 18:00 08/13/16 06:59 Montelukast Sodium (Singulair) 5 mg HS PO 08/12/16 21:00 08/12/16 21:02 Trazodone HCl (Desyrel) 100 mg QHS PO 08/12/16 21:00 08/12/16 21:01 Bupropion HCl (Wellbutrin Xl) 150 mg BID PO 08/12/16 21:00 08/13/16 09:02 Atorvastatin Calcium (Lipitor) 10 mg QHS PO 08/12/16 21:00 08/12/16 21:01 Budesonide (Pulmicort) 0.5 mg RTBID NEB 08/12/16 20:00 08/13/16 07:00 Prednisone (Prednisone) 40 mg DAILY PO 08/13/16 09:00 08/13/16 09:02 Ceftriaxone Sodium 1 gm/ Sodium Chloride 50 ml @ 100 mls/hr Q24H IV 08/12/16 19:00 08/12/16 21:00 Doxycycline Hyclate (Vibra-Tab) 100 mg BID PO 08/12/16 18:00 08/13/16 09:02 ALLERGIES ALLERGIES: Coded Allergies: latex (Verified Allergy, Intermediate, 08/13/16) I S O L A T I O N *CONTACT* (Verified Allergy, Unknown, 03/31/16) mrsa No Known Medication Allergies (Verified Allergy, Unknown, 03/22/16) ROS Review of System 14 point ROS evaluated with pertinent positives noted per HPI PHYSICAL EXAM General: Alert, Oriented X3, Cooperative, mild distress HEENT: Atraumatic, Mucous membr. moist/pink Lungs: Other (diminished throughout) Heart: Regular rate, Normal S1, Normal S2, Other (distant heart sounds) Abdomen: Soft Extremities: No cyanosis, Other (1+ bilateral LE pitting edema) Skin: No breakdown, No significant lesion Neuro: Normal speech, Sensation intact Psych/Mental Status: Mental status NL, Mood NL MUSCULOSKELETAL: Osteoarthritic changes both hands VITALS VITALS Vital Signs Date Time Temp Pulse Resp B/P (MAP) Pulse Ox O2 Delivery O2 Flow Rate FiO2 08/13/16 07:03 100 Nasal Cannula 1.0 08/13/16 07:00 97.7 92 20 118/78 (91) 97.7 LABS Lab: Laboratory Tests Test 08/12/16 14:20 08/12/16 15:17 08/12/16 21:45 08/13/16 02:45 White Blood Count 5.3 x10^3/uL (4.0-11.0) Red Blood Count 5.45 x10^6/uL (4.30-5.70) Hemoglobin 15.2 g/dL (13.0-17.5) Hematocrit 44.8 % (39.0-53.0) Mean Corpuscular Volume 82 fL (79-100) Mean Corpuscular Hemoglobin 28 pg (25-35) Mean Corpuscular Hemoglobin Concent 34 g/dL (31-37) Red Cell Distribution Width 16.4 % (11.5-14.5) Platelet Count 239 x10^3/uL (140-400) Neutrophils (%) (Auto) 54 % (31-73) Lymphocytes (%) (Auto) 35 % (24-48) Monocytes (%) (Auto) 10 % (0-9) Eosinophils (%) (Auto) 1 % (0-3) Basophils (%) (Auto) 1 % (0-3) Neutrophils # (Auto) 2.8 x10^3uL (1.8-7.7) Lymphocytes # (Auto) 1.9 x10^3/uL (1.0-4.8) Monocytes # (Auto) 0.5 x10^3/uL (0.0-1.1) Eosinophils # (Auto) 0.0 x10^3/uL (0.0-0.7) Basophils # (Auto) 0.0 x10^3/uL (0.0-0.2) Prothrombin Time 13.4 SEC (11.7-14.0) Prothromb Time International Ratio 1.1 (0.8-1.1) Activated Partial Thromboplast Time 31 SEC (24-38) Sodium Level 135 mmol/L (136-145) 135 mmol/L (136-145) Potassium Level 3.7 mmol/L (3.5-5.1) 4.3 mmol/L (3.5-5.1) Chloride Level 98 mmol/L (98-107) 98 mmol/L (98-107) Carbon Dioxide Level 29 mmol/L (21-32) 27 mmol/L (21-32) Anion Gap 8 (6-14) 10 (6-14) Blood Urea Nitrogen 7 mg/dL (8-26) 9 mg/dL (8-26) Creatinine 0.6 mg/dL (0.7-1.3) 0.7 mg/dL (0.7-1.3) Estimated GFR (Cockcroft-Gault) 166.3 139.2 BUN/Creatinine Ratio 12 (6-20) Glucose Level 104 mg/dL (70-99) 150 mg/dL (70-99) Lactic Acid Level 1.5 mmol/L (0.4-2.0) Calcium Level 9.5 mg/dL (8.5-10.1) 9.3 mg/dL (8.5-10.1) Magnesium Level 1.6 mg/dL (1.8-2.4) Total Bilirubin 1.1 mg/dL (0.2-1.0) Aspartate Amino Transf (AST/SGOT) 79 U/L (15-37) Alanine Aminotransferase (ALT/SGPT) 79 U/L (16-63) Alkaline Phosphatase 82 U/L (46-116) Creatine Kinase 261 U/L (39-308) Troponin I Quantitative < 0.017 ng/mL (0.000-0.055) < 0.017 ng/mL (0.000-0.055) < 0.017 ng/mL (0.000-0.055) AK-Peq-Q-Type Natriuretic Peptide 39 pg/mL (0-124) Total Protein 8.2 g/dL (6.4-8.2) Albumin 3.4 g/dL (3.4-5.0) Albumin/Globulin Ratio 0.7 (1.0-1.7) Lipase 70 U/L (73-393) Ethyl Alcohol Level < 10 mg/dL (0-10) Urine Collection Type Void Urine Color Yellow Urine Clarity Clear Urine pH 7.0 Urine Specific [place] 1.010 Urine Protein Negative mg/dL (NEG-TRACE) Urine Glucose (UA) Negative mg/dL (NEG) Urine Ketones (Stick) Trace mg/dL (NEG) Urine Blood Negative (NEG) Urine Nitrite Negative (NEG) Urine Bilirubin Negative (NEG) Urine Urobilinogen Dipstick 1.0 mg/dL (0.2 mg/dL) Urine Leukocyte Esterase Negative (NEG) Urine RBC Rare /HPF (0-2) Urine WBC Rare /HPF (0-4) Urine Squamous Epithelial Cells Few /LPF Urine Bacteria 0 /HPF (0-FEW) Urine Opiates Screen Pos (NEG) Urine Methadone Screen Neg (NEG) Urine Barbiturates Neg (NEG) Urine Phencyclidine Screen Neg (NEG) Urine Amphetamine/Methamphetamine Neg (NEG) Urine Benzodiazepines Screen Neg (NEG) Urine Cocaine Screen Neg (NEG) Urine Cannabinoids Screen Neg (NEG) Urine Ethyl Alcohol Neg (NEG) Test 08/13/16 03:00 White Blood Count 4.3 x10^3/uL (4.0-11.0) Red Blood Count 5.33 x10^6/uL (4.30-5.70) Hemoglobin 15.0 g/dL (13.0-17.5) Hematocrit 44.5 % (39.0-53.0) Mean Corpuscular Volume 83 fL (79-100) Mean Corpuscular Hemoglobin 28 pg (25-35) Mean Corpuscular Hemoglobin Concent 34 g/dL (31-37) Red Cell Distribution Width 16.6 % (11.5-14.5) Platelet Count 230 x10^3/uL (140-400) Neutrophils (%) (Auto) 80 % (31-73) Lymphocytes (%) (Auto) 16 % (24-48) Monocytes (%) (Auto) 3 % (0-9) Eosinophils (%) (Auto) 0 % (0-3) Basophils (%) (Auto) 1 % (0-3) Neutrophils # (Auto) 3.4 x10^3uL (1.8-7.7) Lymphocytes # (Auto) 0.7 x10^3/uL (1.0-4.8) Monocytes # (Auto) 0.1 x10^3/uL (0.0-1.1) Eosinophils # (Auto) 0.0 x10^3/uL (0.0-0.7) Basophils # (Auto) 0.0 x10^3/uL (0.0-0.2) ASSESSMENT/PLAN ASSESSMENT/PLAN 1. AECOPD: improving. per pulmonary 2. Chest pain: pt repeatedly denies CP for me. Troponin series normal, EKG SR/ ST with suspected RVH 3. HLP: well controlled 4. Continued Tobaccoism Recommendations 1. Baseline TTE, will note wall motion and PAP as well. 2. Lipid panel, Mg Problems: ISAAC MARION MD 08/14/16 0827: CARDIAC CONSULT ALLERGIES ALLERGIES: Coded Allergies: latex (Verified Allergy, Intermediate, 08/13/16) I S O L A T I O N *CONTACT* (Verified Allergy, Unknown, 03/31/16) mrsa No Known Medication Allergies (Verified Allergy, Unknown, 03/22/16) ASSESSMENT/PLAN ASSESSMENT/PLAN Late entry for 08/13/2016 Pt. seen and examined. Agree with above IT PROGRAMMER Note. 61 y.o male with COPD exacerbation No significant angina. Limited due to dyspnea. Echo with normal LV function. No significant p.HTN Supportive care. Reactive tachycardia, no acute need for b-blockers. Consider anxiolytics. Will follow prn. Thx for consult. Problems: BENNY HERRERA HEEL STAINER August 13, 2016 10:26 ISAAC MARION MD August 14, 2016 08:27
[2016-08-13 11:00] VITALS: BP 116/73
[2016-08-13 11:07] LABS: MAGNESIUM 1.8 mg/dL (1.8-2.4)
[2016-08-13 11:13] LABS: CHOLESTEROL/HDL RATIO 1.9
[2016-08-13] MEDS: NICOTINE 14MG PATCH. TD SCH (12:20)
[2016-08-13] MEDS: clonazePAM 0.5 MG TABLET PO PRN ×2 (13:34→21:06)
--- NOTE | 2016-08-13 13:41 | PDOC ---
Provider Note Provider Note [id number] acute on chronic resp fail copd w ae acute bronchitis see orders. MANAV CANTOR MD August 13, 2016 13:41
--- NOTE | 2016-08-13 14:08 | CONS ---
DATE OF CONSULTATION: 08/13/2016 I was asked to see this 61-year-old gentleman for [id number] respiratory failure. HISTORY OF PRESENT ILLNESS: He has history of a 19-[id number]-jiuc smoking, continues to smoke a few cigarettes per day. He is on oxygen 2 liters via nasal cannula continuously. He has not felt good for the past week. He has had increased cough, shortness of breath, and wheezing. He is not able to cough up his sputum. He has had chest pain and chest tightness. He has had fever and chills. He has runny nose, but denies gastroesophageal reflux symptoms. PAST MEDICAL HISTORY: Chronic respiratory failure, COPD, CHF, anxiety, hypertension, and hepatitis. ALLERGIES: LATEX. MEDICATIONS: Currently, he is on prednisone 40 mg daily, nicotine patch, hydrochlorothiazide, aspirin, Lipitor, Wellbutrin, Singulair, Pulmicort, Rocephin, doxycycline, DuoNeb, Atarax, Klonopin, and Xanax. SOCIAL HISTORY: History of 34-[id number]-[id number] smoking; continues to smoke a few cigarettes per day. FAMILY HISTORY: Positive for hypertension. REVIEW OF SYSTEMS: As mentioned as above, other systems are otherwise negative. PHYSICAL EXAMINATION: GENERAL: elderly gentleman. VITAL SIGNS: His O2 saturation is 96%, respiratory rate 20, heart rate 83, blood pressure 136/69, temperature 98.4. HEENT: Normocephalic, atraumatic. Pupils equal, round, reactive to light. Throat is clear. Nose: There is inflamed mucosa. NECK: There is no JVD, lymphadenopathy or thyromegaly. CARDIOVASCULAR: Distant heart sounds. Regular rate and rhythm. PMI is nondisplaced. CHEST: Inspection is normal. LUNGS: There is bilateral end expiratory wheezing. ABDOMEN: Soft. Bowel sounds are good. There is no mass. EXTREMITIES: There is no edema. LYMPHATICS: There is no lymphadenopathy. SKIN: Chronic changes. LABORATORY DATA: I reviewed the following lab data: Chest x-ray does not show infiltrates. WBC 4.3, hemoglobin 15, platelets 230. Sodium 135, potassium 4.3, chloride 98, CO2 of 27, glucose 150, BUN 9, creatinine 0.7. Troponin less than 0.01. BMP 39. IMPRESSION: 1. [id number] respiratory failure, multifactorial in etiology including acute exacerbation of chronic obstructive pulmonary disease, acute bronchitis, rule out cardiac etiology versus others. 2. Acute exacerbation of chronic obstructive pulmonary disease. 3. Acute bronchitis. 4. Tobacco habituation. 5. Anxiety. PLAN AND RECOMMENDATIONS: 1. I had a long discussion with him regarding the smoking cessation. I have advised him to stop smoking forever. 2. Titrate FiO2 to keep O2 saturation 92%. 3. Prednisone 40 mg daily. 4. Singulair. 5. Bronchodilator. 6. Inhaled corticosteroid. 7. I agree with Rocephin and doxycycline. 8. Start Lovenox for DVT prophylaxis. 9. Protonix for stress ulcer prophylaxis. 10. Monitor respiratory status very closely. 11. Cardiology is consulted, agree with echocardiogram. Thank you very much for allowing me to participate in care of this very nice gentleman. I have discussed the findings and recommendations with the patient. He understood and agreed to proceed with the plan. I have answered all of his questions. MANAV CANTOR M.D. : ASIA/cristian JOB#: [id number] / [id number] RENETTA
--- NOTE | 2016-08-13 14:17 | PDOC ---
PROGRESS NOTES Chief Complaint Chief Complaint acute on chronic hypoxic and hypercarbic respiratory failure COPD with acute bronchitis +SIRS criteria, anxiety d/o and bronchitis, obesity, BMI 33 weakness and debility anxiety d/o History of Present Illness History of Present Illness calm, breathing much easier today sleeping hard no event seems lisa lyles claims he cannot go home Vitals Vitals Vital Signs Date Time Temp Pulse Resp B/P (MAP) Pulse Ox O2 Delivery O2 Flow Rate FiO2 08/13/16 11:53 Nasal Cannula 1.0 08/13/16 11:00 98.4 83 20 116/73 (87) 98 98.4 Physical Exam General: Alert, Oriented X3, Cooperative, mild distress Heart: Regular rate, Normal S1, Normal S2, Other (distant heart sounds) Lungs: Clear Abdomen: Soft Extremities: No cyanosis, Other (1+ bilateral LE pitting edema) Skin: No breakdown, No significant lesion Labs LABS Laboratory Tests Test 08/12/16 14:20 08/12/16 15:17 08/12/16 19:30 08/12/16 21:45 White Blood Count 5.3 x10^3/uL (4.0-11.0) Red Blood Count 5.45 x10^6/uL (4.30-5.70) Hemoglobin 15.2 g/dL (13.0-17.5) Hematocrit 44.8 % (39.0-53.0) Mean Corpuscular Volume 82 fL (79-100) Mean Corpuscular Hemoglobin 28 pg (25-35) Mean Corpuscular Hemoglobin Concent 34 g/dL (31-37) Red Cell Distribution Width 16.4 % (11.5-14.5) Platelet Count 239 x10^3/uL (140-400) Neutrophils (%) (Auto) 54 % (31-73) Lymphocytes (%) (Auto) 35 % (24-48) Monocytes (%) (Auto) 10 % (0-9) Eosinophils (%) (Auto) 1 % (0-3) Basophils (%) (Auto) 1 % (0-3) Neutrophils # (Auto) 2.8 x10^3uL (1.8-7.7) Lymphocytes # (Auto) 1.9 x10^3/uL (1.0-4.8) Monocytes # (Auto) 0.5 x10^3/uL (0.0-1.1) Eosinophils # (Auto) 0.0 x10^3/uL (0.0-0.7) Basophils # (Auto) 0.0 x10^3/uL (0.0-0.2) Prothrombin Time 13.4 SEC (11.7-14.0) Prothromb Time International Ratio 1.1 (0.8-1.1) Activated Partial Thromboplast Time 31 SEC (24-38) Sodium Level 135 mmol/L (136-145) Potassium Level 3.7 mmol/L (3.5-5.1) Chloride Level 98 mmol/L (98-107) Carbon Dioxide Level 29 mmol/L (21-32) Anion Gap 8 (6-14) Blood Urea Nitrogen 7 mg/dL (8-26) Creatinine 0.6 mg/dL (0.7-1.3) Estimated GFR (Cockcroft-Gault) 166.3 BUN/Creatinine Ratio 12 (6-20) Glucose Level 104 mg/dL (70-99) Lactic Acid Level 1.5 mmol/L (0.4-2.0) Calcium Level 9.5 mg/dL (8.5-10.1) Magnesium Level 1.6 mg/dL (1.8-2.4) Total Bilirubin 1.1 mg/dL (0.2-1.0) Aspartate Amino Transf (AST/SGOT) 79 U/L (15-37) Alanine Aminotransferase (ALT/SGPT) 79 U/L (16-63) Alkaline Phosphatase 82 U/L (46-116) Creatine Kinase 261 U/L (39-308) Troponin I Quantitative < 0.017 ng/mL (0.000-0.055) < 0.017 ng/mL (0.000-0.055) HZ-Wen-S-Type Natriuretic Peptide 39 pg/mL (0-124) Total Protein 8.2 g/dL (6.4-8.2) Albumin 3.4 g/dL (3.4-5.0) Albumin/Globulin Ratio 0.7 (1.0-1.7) Lipase 70 U/L (73-393) Ethyl Alcohol Level < 10 mg/dL (0-10) Urine Collection Type Void Urine Color Yellow Urine Clarity Clear Urine pH 7.0 Urine Specific [place] 1.010 Urine Protein Negative mg/dL (NEG-TRACE) Urine Glucose (UA) Negative mg/dL (NEG) Urine Ketones (Stick) Trace mg/dL (NEG) Urine Blood Negative (NEG) Urine Nitrite Negative (NEG) Urine Bilirubin Negative (NEG) Urine Urobilinogen Dipstick 1.0 mg/dL (0.2 mg/dL) Urine Leukocyte Esterase Negative (NEG) Urine RBC Rare /HPF (0-2) Urine WBC Rare /HPF (0-4) Urine Squamous Epithelial Cells Few /LPF Urine Bacteria 0 /HPF (0-FEW) Urine Opiates Screen Pos (NEG) Urine Methadone Screen Neg (NEG) Urine Barbiturates Neg (NEG) Urine Phencyclidine Screen Neg (NEG) Urine Amphetamine/Methamphetamine Neg (NEG) Urine Benzodiazepines Screen Neg (NEG) Urine Cocaine Screen Neg (NEG) Urine Cannabinoids Screen Neg (NEG) Urine Ethyl Alcohol Neg (NEG) Nasal Screen MRSA (PCR) Positive (Negative) Test 08/13/16 02:45 08/13/16 03:00 Sodium Level 135 mmol/L (136-145) Potassium Level 4.3 mmol/L (3.5-5.1) Chloride Level 98 mmol/L (98-107) Carbon Dioxide Level 27 mmol/L (21-32) Anion Gap 10 (6-14) Blood Urea Nitrogen 9 mg/dL (8-26) Creatinine 0.7 mg/dL (0.7-1.3) Estimated GFR (Cockcroft-Gault) 139.2 Glucose Level 150 mg/dL (70-99) Calcium Level 9.3 mg/dL (8.5-10.1) Magnesium Level 1.8 mg/dL (1.8-2.4) Troponin I Quantitative < 0.017 ng/mL (0.000-0.055) Triglycerides Level 26 mg/dL (0-150) Cholesterol Level 88 mg/dL (0-200) LDL Cholesterol, Calculated 37 mg/dL (0-100) VLDL Cholesterol, Calculated 5 mg/dL (0-40) Non-HDL Cholesterol Calculated 42 mg/dL (0-129) HDL Cholesterol 46 mg/dL (40-60) Cholesterol/HDL Ratio 1.9 White Blood Count 4.3 x10^3/uL (4.0-11.0) Red Blood Count 5.33 x10^6/uL (4.30-5.70) Hemoglobin 15.0 g/dL (13.0-17.5) Hematocrit 44.5 % (39.0-53.0) Mean Corpuscular Volume 83 fL (79-100) Mean Corpuscular Hemoglobin 28 pg (25-35) Mean Corpuscular Hemoglobin Concent 34 g/dL (31-37) Red Cell Distribution Width 16.6 % (11.5-14.5) Platelet Count 230 x10^3/uL (140-400) Neutrophils (%) (Auto) 80 % (31-73) Lymphocytes (%) (Auto) 16 % (24-48) Monocytes (%) (Auto) 3 % (0-9) Eosinophils (%) (Auto) 0 % (0-3) Basophils (%) (Auto) 1 % (0-3) Neutrophils # (Auto) 3.4 x10^3uL (1.8-7.7) Lymphocytes # (Auto) 0.7 x10^3/uL (1.0-4.8) Monocytes # (Auto) 0.1 x10^3/uL (0.0-1.1) Eosinophils # (Auto) 0.0 x10^3/uL (0.0-0.7) Basophils # (Auto) 0.0 x10^3/uL (0.0-0.2) Assessment and Plan Assessmemt and Plan Problems Medical Problems: (1) COPD with acute exacerbation Status: Acute Problems: Comment Review of Relevant I have reviewed the following items kyleigh (where applicable) has been applied. Labs Laboratory Tests Test 08/12/16 14:20 08/12/16 15:17 08/12/16 19:30 08/12/16 21:45 White Blood Count 5.3 x10^3/uL (4.0-11.0) Red Blood Count 5.45 x10^6/uL (4.30-5.70) Hemoglobin 15.2 g/dL (13.0-17.5) Hematocrit 44.8 % (39.0-53.0) Mean Corpuscular Volume 82 fL (79-100) Mean Corpuscular Hemoglobin 28 pg (25-35) Mean Corpuscular Hemoglobin Concent 34 g/dL (31-37) Red Cell Distribution Width 16.4 % (11.5-14.5) Platelet Count 239 x10^3/uL (140-400) Neutrophils (%) (Auto) 54 % (31-73) Lymphocytes (%) (Auto) 35 % (24-48) Monocytes (%) (Auto) 10 % (0-9) Eosinophils (%) (Auto) 1 % (0-3) Basophils (%) (Auto) 1 % (0-3) Neutrophils # (Auto) 2.8 x10^3uL (1.8-7.7) Lymphocytes # (Auto) 1.9 x10^3/uL (1.0-4.8) Monocytes # (Auto) 0.5 x10^3/uL (0.0-1.1) Eosinophils # (Auto) 0.0 x10^3/uL (0.0-0.7) Basophils # (Auto) 0.0 x10^3/uL (0.0-0.2) Prothrombin Time 13.4 SEC (11.7-14.0) Prothromb Time International Ratio 1.1 (0.8-1.1) Activated Partial Thromboplast Time 31 SEC (24-38) Sodium Level 135 mmol/L (136-145) Potassium Level 3.7 mmol/L (3.5-5.1) Chloride Level 98 mmol/L (98-107) Carbon Dioxide Level 29 mmol/L (21-32) Anion Gap 8 (6-14) Blood Urea Nitrogen 7 mg/dL (8-26) Creatinine 0.6 mg/dL (0.7-1.3) Estimated GFR (Cockcroft-Gault) 166.3 BUN/Creatinine Ratio 12 (6-20) Glucose Level 104 mg/dL (70-99) Lactic Acid Level 1.5 mmol/L (0.4-2.0) Calcium Level 9.5 mg/dL (8.5-10.1) Magnesium Level 1.6 mg/dL (1.8-2.4) Total Bilirubin 1.1 mg/dL (0.2-1.0) Aspartate Amino Transf (AST/SGOT) 79 U/L (15-37) Alanine Aminotransferase (ALT/SGPT) 79 U/L (16-63) Alkaline Phosphatase 82 U/L (46-116) Creatine Kinase 261 U/L (39-308) Troponin I Quantitative < 0.017 ng/mL (0.000-0.055) < 0.017 ng/mL (0.000-0.055) XN-Vwl-D-Type Natriuretic Peptide 39 pg/mL (0-124) Total Protein 8.2 g/dL (6.4-8.2) Albumin 3.4 g/dL (3.4-5.0) Albumin/Globulin Ratio 0.7 (1.0-1.7) Lipase 70 U/L (73-393) Ethyl Alcohol Level < 10 mg/dL (0-10) Urine Collection Type Void Urine Color Yellow Urine Clarity Clear Urine pH 7.0 Urine Specific [place] 1.010 Urine Protein Negative mg/dL (NEG-TRACE) Urine Glucose (UA) Negative mg/dL (NEG) Urine Ketones (Stick) Trace mg/dL (NEG) Urine Blood Negative (NEG) Urine Nitrite Negative (NEG) Urine Bilirubin Negative (NEG) Urine Urobilinogen Dipstick 1.0 mg/dL (0.2 mg/dL) Urine Leukocyte Esterase Negative (NEG) Urine RBC Rare /HPF (0-2) Urine WBC Rare /HPF (0-4) Urine Squamous Epithelial Cells Few /LPF Urine Bacteria 0 /HPF (0-FEW) Urine Opiates Screen Pos (NEG) Urine Methadone Screen Neg (NEG) Urine Barbiturates Neg (NEG) Urine Phencyclidine Screen Neg (NEG) Urine Amphetamine/Methamphetamine Neg (NEG) Urine Benzodiazepines Screen Neg (NEG) Urine Cocaine Screen Neg (NEG) Urine Cannabinoids Screen Neg (NEG) Urine Ethyl Alcohol Neg (NEG) Nasal Screen MRSA (PCR) Positive (Negative) Test 08/13/16 02:45 08/13/16 03:00 Sodium Level 135 mmol/L (136-145) Potassium Level 4.3 mmol/L (3.5-5.1) Chloride Level 98 mmol/L (98-107) Carbon Dioxide Level 27 mmol/L (21-32) Anion Gap 10 (6-14) Blood Urea Nitrogen 9 mg/dL (8-26) Creatinine 0.7 mg/dL (0.7-1.3) Estimated GFR (Cockcroft-Gault) 139.2 Glucose Level 150 mg/dL (70-99) Calcium Level 9.3 mg/dL (8.5-10.1) Magnesium Level 1.8 mg/dL (1.8-2.4) Troponin I Quantitative < 0.017 ng/mL (0.000-0.055) Triglycerides Level 26 mg/dL (0-150) Cholesterol Level 88 mg/dL (0-200) LDL Cholesterol, Calculated 37 mg/dL (0-100) VLDL Cholesterol, Calculated 5 mg/dL (0-40) Non-HDL Cholesterol Calculated 42 mg/dL (0-129) HDL Cholesterol 46 mg/dL (40-60) Cholesterol/HDL Ratio 1.9 White Blood Count 4.3 x10^3/uL (4.0-11.0) Red Blood Count 5.33 x10^6/uL (4.30-5.70) Hemoglobin 15.0 g/dL (13.0-17.5) Hematocrit 44.5 % (39.0-53.0) Mean Corpuscular Volume 83 fL (79-100) Mean Corpuscular Hemoglobin 28 pg (25-35) Mean Corpuscular Hemoglobin Concent 34 g/dL (31-37) Red Cell Distribution Width 16.6 % (11.5-14.5) Platelet Count 230 x10^3/uL (140-400) Neutrophils (%) (Auto) 80 % (31-73) Lymphocytes (%) (Auto) 16 % (24-48) Monocytes (%) (Auto) 3 % (0-9) Eosinophils (%) (Auto) 0 % (0-3) Basophils (%) (Auto) 1 % (0-3) Neutrophils # (Auto) 3.4 x10^3uL (1.8-7.7) Lymphocytes # (Auto) 0.7 x10^3/uL (1.0-4.8) Monocytes # (Auto) 0.1 x10^3/uL (0.0-1.1) Eosinophils # (Auto) 0.0 x10^3/uL (0.0-0.7) Basophils # (Auto) 0.0 x10^3/uL (0.0-0.2) Laboratory Tests Test 08/12/16 14:20 08/12/16 15:17 08/12/16 19:30 08/12/16 21:45 White Blood Count 5.3 x10^3/uL (4.0-11.0) Red Blood Count 5.45 x10^6/uL (4.30-5.70) Hemoglobin 15.2 g/dL (13.0-17.5) Hematocrit 44.8 % (39.0-53.0) Mean Corpuscular Volume 82 fL (79-100) Mean Corpuscular Hemoglobin 28 pg (25-35) Mean Corpuscular Hemoglobin Concent 34 g/dL (31-37) Red Cell Distribution Width 16.4 % (11.5-14.5) Platelet Count 239 x10^3/uL (140-400) Neutrophils (%) (Auto) 54 % (31-73) Lymphocytes (%) (Auto) 35 % (24-48) Monocytes (%) (Auto) 10 % (0-9) Eosinophils (%) (Auto) 1 % (0-3) Basophils (%) (Auto) 1 % (0-3) Neutrophils # (Auto) 2.8 x10^3uL (1.8-7.7) Lymphocytes # (Auto) 1.9 x10^3/uL (1.0-4.8) Monocytes # (Auto) 0.5 x10^3/uL (0.0-1.1) Eosinophils # (Auto) 0.0 x10^3/uL (0.0-0.7) Basophils # (Auto) 0.0 x10^3/uL (0.0-0.2) Prothrombin Time 13.4 SEC (11.7-14.0) Prothromb Time International Ratio 1.1 (0.8-1.1) Activated Partial Thromboplast Time 31 SEC (24-38) Sodium Level 135 mmol/L (136-145) Potassium Level 3.7 mmol/L (3.5-5.1) Chloride Level 98 mmol/L (98-107) Carbon Dioxide Level 29 mmol/L (21-32) Anion Gap 8 (6-14) Blood Urea Nitrogen 7 mg/dL (8-26) Creatinine 0.6 mg/dL (0.7-1.3) Estimated GFR (Cockcroft-Gault) 166.3 BUN/Creatinine Ratio 12 (6-20) Glucose Level 104 mg/dL (70-99) Lactic Acid Level 1.5 mmol/L (0.4-2.0) Calcium Level 9.5 mg/dL (8.5-10.1) Magnesium Level 1.6 mg/dL (1.8-2.4) Total Bilirubin 1.1 mg/dL (0.2-1.0) Aspartate Amino Transf (AST/SGOT) 79 U/L (15-37) Alanine Aminotransferase (ALT/SGPT) 79 U/L (16-63) Alkaline Phosphatase 82 U/L (46-116) Creatine Kinase 261 U/L (39-308) Troponin I Quantitative < 0.017 ng/mL (0.000-0.055) < 0.017 ng/mL (0.000-0.055) PR-Yqd-X-Type Natriuretic Peptide 39 pg/mL (0-124) Total Protein 8.2 g/dL (6.4-8.2) Albumin 3.4 g/dL (3.4-5.0) Albumin/Globulin Ratio 0.7 (1.0-1.7) Lipase 70 U/L (73-393) Ethyl Alcohol Level < 10 mg/dL (0-10) Urine Collection Type Void Urine Color Yellow Urine Clarity Clear Urine pH 7.0 Urine Specific [place] 1.010 Urine Protein Negative mg/dL (NEG-TRACE) Urine Glucose (UA) Negative mg/dL (NEG) Urine Ketones (Stick) Trace mg/dL (NEG) Urine Blood Negative (NEG) Urine Nitrite Negative (NEG) Urine Bilirubin Negative (NEG) Urine Urobilinogen Dipstick 1.0 mg/dL (0.2 mg/dL) Urine Leukocyte Esterase Negative (NEG) Urine RBC Rare /HPF (0-2) Urine WBC Rare /HPF (0-4) Urine Squamous Epithelial Cells Few /LPF Urine Bacteria 0 /HPF (0-FEW) Urine Opiates Screen Pos (NEG) Urine Methadone Screen Neg (NEG) Urine Barbiturates Neg (NEG) Urine Phencyclidine Screen Neg (NEG) Urine Amphetamine/Methamphetamine Neg (NEG) Urine Benzodiazepines Screen Neg (NEG) Urine Cocaine Screen Neg (NEG) Urine Cannabinoids Screen Neg (NEG) Urine Ethyl Alcohol Neg (NEG) Nasal Screen MRSA (PCR) Positive (Negative) Test 08/13/16 02:45 08/13/16 03:00 Sodium Level 135 mmol/L (136-145) Potassium Level 4.3 mmol/L (3.5-5.1) Chloride Level 98 mmol/L (98-107) Carbon Dioxide Level 27 mmol/L (21-32) Anion Gap 10 (6-14) Blood Urea Nitrogen 9 mg/dL (8-26) Creatinine 0.7 mg/dL (0.7-1.3) Estimated GFR (Cockcroft-Gault) 139.2 Glucose Level 150 mg/dL (70-99) Calcium Level 9.3 mg/dL (8.5-10.1) Magnesium Level 1.8 mg/dL (1.8-2.4) Troponin I Quantitative < 0.017 ng/mL (0.000-0.055) Triglycerides Level 26 mg/dL (0-150) Cholesterol Level 88 mg/dL (0-200) LDL Cholesterol, Calculated 37 mg/dL (0-100) VLDL Cholesterol, Calculated 5 mg/dL (0-40) Non-HDL Cholesterol Calculated 42 mg/dL (0-129) HDL Cholesterol 46 mg/dL (40-60) Cholesterol/HDL Ratio 1.9 White Blood Count 4.3 x10^3/uL (4.0-11.0) Red Blood Count 5.33 x10^6/uL (4.30-5.70) Hemoglobin 15.0 g/dL (13.0-17.5) Hematocrit 44.5 % (39.0-53.0) Mean Corpuscular Volume 83 fL (79-100) Mean Corpuscular Hemoglobin 28 pg (25-35) Mean Corpuscular Hemoglobin Concent 34 g/dL (31-37) Red Cell Distribution Width 16.6 % (11.5-14.5) Platelet Count 230 x10^3/uL (140-400) Neutrophils (%) (Auto) 80 % (31-73) Lymphocytes (%) (Auto) 16 % (24-48) Monocytes (%) (Auto) 3 % (0-9) Eosinophils (%) (Auto) 0 % (0-3) Basophils (%) (Auto) 1 % (0-3) Neutrophils # (Auto) 3.4 x10^3uL (1.8-7.7) Lymphocytes # (Auto) 0.7 x10^3/uL (1.0-4.8) Monocytes # (Auto) 0.1 x10^3/uL (0.0-1.1) Eosinophils # (Auto) 0.0 x10^3/uL (0.0-0.7) Basophils # (Auto) 0.0 x10^3/uL (0.0-0.2) Medications Current Medications Morphine Sulfate 5 mg 1X ONCE IV Last administered on 08/12/16 14:20; Start 08/12/16 at 14:30; Stop 08/12/16 at 14:31; Status DC Methylprednisolone Sodium Succinate (Solu-Medrol 125mg Vial) 125 mg 1X ONCE IV Last administered on 08/12/16 14:20; Start 08/12/16 at 14:30; Stop 08/12/16 at 14:31; Status DC Ondansetron HCl (Zofran) 8 mg 1X ONCE IV Last administered on 08/12/16 14:20 ; Start 08/12/16 at 14:30; Stop 08/12/16 at 14:31; Status DC Albuterol/ Ipratropium (Duoneb) 3 ml 1X ONCE NEB Last administered on 15:08; Start 08/12/16 at 14:30; Stop 08/12/16 at 14:31; Status DC Clonidine HCl (Catapres) 0.1 mg 1X ONCE PO Last administered on 08/12/16 14: 20; Start 08/12/16 at 14:30; Stop 08/12/16 at 14:31; Status DC Ondansetron HCl (Zofran) 4 mg PRN Q8HRS PRN IV NAUSEA/VOMITING; Start 08/12/16 at 15:45; Stop 08/13/16 at 15:44 Fentanyl Citrate (Fentanyl 2ml Vial) 50 mcg PRN Q2HR PRN IV PAIN; Start at 15:45; Stop 08/13/16 at 15:44 Albuterol/ Ipratropium (Duoneb) 3 ml RTQID NEB ; Start 08/12/16 at 20:00; Stop 08/12/16 at 20:00; Status DC Alprazolam (Xanax) 0.5 mg PRN DAILY PRN PO ANXIETY Last administered on 09:05; Start 08/12/16 at 17:30 Aspirin (Ecotrin) 81 mg DAILY PO Last administered on 08/13/16 09:02; Start at 09:00 Clonazepam (KlonoPIN) 0.5 mg PRN TID PRN PO ANXIETY / AGITATION Last administered on 08/13/16 13:34; Start 08/12/16 at 17:30 Hydrochlorothiazide (Hydrodiuril) 25 mg DAILY PO Last administered on 09:02; Start 08/13/16 at 09:00 Albuterol Sulfate (Ventolin Neb Soln) 2.5 mg PRN Q4HRS PRN NEB SHORTNESS OF BREATH Last administered on 08/13/16 00:07; Start 08/12/16 at 18:00 Albuterol/ Ipratropium (Duoneb) 3 ml Q4HRS W/A NEB Last administered on 11:52; Start 08/12/16 at 18:00 Montelukast Sodium (Singulair) 5 mg HS PO Last administered on 08/12/16 21:02 ; Start 08/12/16 at 21:00 Trazodone HCl (Desyrel) 100 mg QHS PO Last administered on 08/12/16 21:01; Start 08/12/16 at 21:00 Bupropion HCl (Wellbutrin Xl) 150 mg BID PO Last administered on 08/13/16 09: 02; Start 08/12/16 at 21:00 Atorvastatin Calcium (Lipitor) 10 mg QHS PO Last administered on 08/12/16 21: 01; Start 08/12/16 at 21:00 Hydroxyzine HCl (Atarax) 10 mg PRN Q6HRS PRN PO ITCHING; Start 08/12/16 at 17: 30 Budesonide (Pulmicort) 0.5 mg RTBID NEB Last administered on 08/13/16 07:00; Start 08/12/16 at 20:00 Prednisone (Prednisone) 40 mg DAILY PO Last administered on 08/13/16 09:02; Start 08/13/16 at 09:00 Ceftriaxone Sodium 1 gm/ Sodium Chloride 50 ml @ 100 mls/hr Q24H IV Last administered on 08/12/16 21:00; Start 08/12/16 at 19:00 Doxycycline Hyclate (Vibra-Tab) 100 mg BID PO Last administered on 08/13/16 09 :02; Start 08/12/16 at 18:00 Pneumococcal Polyvalent Vaccine (Do NOT chart on this placeholder) 1 each 1X ONCE MC ; Start 08/13/16 at 09:00; Stop 08/13/16 at 09:01; Status UNV Pneumococcal Polyvalent Vaccine (Pneumovax 23) 0.5 ml ONCE ONCE VAX IM ; Start 08/13/16 at 09:00; Stop 08/13/16 at 09:01; Status DC Nicotine (Nicoderm Cq 14mg) 1 patch DAILY TD Last administered on 08/13/16t 12: 20; Start 08/13/16 at 11:45 Enoxaparin Sodium (Lovenox 40mg Syringe) 40 mg Q24H SQ ; Start 08/13/16 at 14:00 Pantoprazole Sodium (Protonix) 40 mg DAILYAC PO ; Start 08/13/16 at 16:30 Active Scripts Active Duoneb 0.5-3(2.5) Mg/3 Ml (Albuterol/Ipratropium) 3 Ml Ampul.neb 3 Ml NEB RTQID Montelukast Sodium Tablet (Montelukast Sodium) 10 Mg Tablet 5 Mg PO HS Spiriva (Tiotropium [place]) 18 Mcg Cap.w.dev 2 Inh IH DAILY Advair 250-50 Diskus (Fluticasone/Salmeterol) 1 Each Disk.w.dev 1 Puff IH BID Xanax (Alprazolam) 0.5 Mg Tablet 1 Tab PO DAILY Reported Hydrochlorothiazide Tablet (Hydrochlorothiazide) 25 Mg Tablet 1 Tab PO DAILY Bupropion HCl ER (Bupropion HCl) 200 Mg Tablet.er 150 Mg PO BID Aspir 81 (Aspirin) 81 Mg Tablet.dr 1 Tab PO DAILY Clonazepam 0.5 Mg Tablet 1 Tab PO PRN TID PRN Pravastatin Sodium 40 Mg Tablet 1 Tab PO QHS Duoneb 0.5-3(2.5) Mg/3 Ml (Albuterol/Ipratropium) 3 Ml Ampul.neb 3 Ml NEB Q4HRS PRN Trazodone Hcl 100 Mg Tablet 1 Tab PO QHS Vitals/I & O Vital Sign - Last 24 Hours 08/12/16 08/12/16 08/12/16 08/12/16 14:20 14:20 14:51 15:09 Pulse 104 98 Resp 17 B/P (MAP) 189/111 144/99 (114) Pulse Ox 3 99 99 O2 Delivery Nasal Cannula Nasal Cannula Nasal Cannula O2 Flow Rate 3.0 3.0 08/12/16 08/12/16 08/12/16 08/12/16 15:09 15:39 16:09 16:45 Temp 98.1 98.1 Pulse 100 94 92 98 Resp 22 14 14 22 B/P (MAP) 160/116 (131) 151/92 (111) 142/92 (109) 139/93 (108) Pulse Ox 99 99 98 95 O2 Delivery Nasal Cannula O2 Flow Rate 3.0 08/12/16 08/12/16 08/12/16 08/12/16 17:27 17:42 19:00 19:44 Temp 98.6 98.6 Pulse 91 Resp 18 B/P (MAP) 140/99 (113) Pulse Ox 97 98 O2 Delivery Nasal Cannula Nasal Cannula Nasal Cannula O2 Flow Rate 3.0 3.0 3.0 08/12/16 08/12/16 08/12/16 08/12/16 20:00 20:00 20:01 23:00 Temp 98.0 98.0 Pulse 88 Resp 18 B/P (MAP) 136/92 (107) Pulse Ox 99 99 99 O2 Delivery Nasal Cannula Nasal Cannula Nasal Cannula O2 Flow Rate 3.0 3.0 3.0 08/13/16 08/13/16 08/13/16 08/13/16 00:08 03:00 07:00 07:02 Temp 97.6 97.7 97.6 97.7 Pulse 80 92 Resp 18 20 B/P (MAP) 122/87 (99) 118/78 (91) Pulse Ox 100 99 96 100 O2 Delivery Nasal Cannula Room Air Nasal Cannula O2 Flow Rate 3.0 1.0 08/13/16 08/13/16 08/13/16 08/13/16 07:03 08:05 11:00 11:53 Temp 98.4 98.4 Pulse 83 Resp 20 B/P (MAP) 116/73 (87) Pulse Ox 100 98 O2 Delivery Nasal Cannula Nasal Cannula Room Air Nasal Cannula O2 Flow Rate 1.0 1.0 1.0 Intake and Output 08/12/16 08/12/16 08/13/16 15:00 23:00 07:00 Intake Total 250 ml Output Total 350 ml Balance 250 ml -350 ml POOJA PULLIAM MD August 13, 2016 14:16
[2016-08-13 15:00] VITALS: BP 117/82
--- NOTE | 2016-08-13 16:32 | CARD ---
APPROVED REPORT EXAM: Two-dimensional and M-mode echocardiogram with Doppler and color Doppler. Other Information Quality : Fair INDICATION Dyspnea Chest Pain 2D DIMENSIONS RVDd2.8 (2.9-3.5cm)Left Atrium(2D)2.5 (1.6-4.0cm) IVSd1.2 (0.7-1.1cm)Aortic Root(2D)3.4 (2.0-3.7cm) LVDd4.7 (3.9-5.9cm)LVOT Diameter2.4 (1.8-2.4cm) PWd1.1 (0.7-1.1cm)LVDs3.0 (2.5-4.0cm) FS (%) 30.0 %SV65.0 ml LVEF(%)60.0 (>50%) Aortic Valve AoV Peak Barrera.130.4cm/sAoV VTI23.9cm AO Peak GR.6.8mmHgLVOT Peak Barrera.110.2cm/s LVOT VTI 20.33cmAO Mean GR.4mmHg ILENE (VMAX)3.05ji7FEC (VTI)3.73cm2 Mitral Valve MV E Qgfkzbwa51.4cm/sMV DECEL [id number] MV A Enrozrya70.0cm/sMV YDN86um E/A Ratio1.3MVA (PHT)3.48cm2 TDI E/Lateral E'6.7E/Medial E'8.9 Tricuspid Valve TR P. Rffncoto434kv/sRAP [id number] TR Peak Gr.50dkBqEVZV05hmBq LEFT VENTRICLE The left ventricle is normal size. There is mild asymmetric septal left ventricular hypertrophy. The left ventricular systolic function is normal and the ejection fraction is within normal range. The Ej ection Fraction is 55-60%. There is normal LV segmental wall motion. Transmitral Doppler flow pattern is Grade I-abnormal relaxation pattern. RIGHT VENTRICLE The right ventricle is normal size. The right ventricular systolic function is normal. ATRIA The left atrium size is normal. The right atrium size is normal. The interatrial septum is intact wit h no evidence for an atrial septal defect or patent foramen ovale as noted on 2-D or Doppler imaging. AORTIC VALVE The aortic valve is calcified but opens well. Doppler and Color Flow revealed trace aortic regurgitat ion. There is no significant aortic valvular stenosis. MITRAL VALVE The mitral valve is normal in structure and function. There is no evidence of mitral valve prolapse. There is no mitral valve stenosis. Doppler and Color Flow revealed no mitral valve regurgitation note d. TRICUSPID VALVE The tricuspid valve is normal in structure and function. Doppler and Color Flow revealed trace tricus pid regurgitation. The PA pressure was estimated at 27 mmHg. There is no tricuspid valve stenosis. PULMONIC VALVE The pulmonic valve is not well visualized. Doppler and Color Flow revealed no pulmonic valvular regur gitation. There is no pulmonic valvular stenosis. GREAT VESSELS The aortic root is normal in size. The ascending aorta is not well seen. The IVC is dilated and colla pses <50% with inspiration. PERICARDIAL EFFUSION There is no evidence of significant pericardial effusion. Critical Notification Critical Value: No <Conclusion> The left ventricular systolic function is normal and the ejection fraction is within normal range. Th e Ejection Fraction is 55-60%. There is normal LV segmental wall motion.
[2016-08-13] MEDS: PANTOPRAZOLE 40 MG TABLET.DR. PO SCH (17:21)
[2016-08-13] MEDS: ENOXAPARIN 40 MG/0.4 ML SYRINGE. SQ SCH (17:22)
[2016-08-13 19:00] VITALS: BP 124/85
[2016-08-13] MEDS: MONTELUKAST SODIUM 10 MG TABLET. PO SCH (21:06)
[2016-08-13] MEDS: traZODone 100 MG TABLET. PO SCH (21:07)
[2016-08-13] MEDS: ATORVASTATIN CALCIUM 10 MG TABLET. PO SCH (21:07)
[2016-08-13 23:59] VITALS: BP 117/88
[2016-08-14 03:59] VITALS: BP 115/84
[2016-08-14] MEDS: ALBUTEROL SULFATE 2.5 MG/3 ML NEBU. NEB PRN (04:14)
[2016-08-14] MEDS: BUDESONIDE 0.5 MG/2 ML NEBU. NEB SCH ×2 (06:59→19:14)
[2016-08-14] MEDS: IPRATRPIUM/ALBUTEROL 0.5/2.5MG 3 ML NEBU. NEB SCH ×4 (06:59→19:14)
[2016-08-14 07:00] VITALS: BP 114/84
[2016-08-14] MEDS: PANTOPRAZOLE 40 MG TABLET.DR. PO SCH (08:32)
[2016-08-14] MEDS: ALPRAZolam 0.5 MG TABLET PO PRN (08:32)
[2016-08-14] MEDS: DOXYCYCLINE HYCLATE 100 MG TABLET PO SCH ×2 (08:32→21:27)
[2016-08-14] MEDS: buPROPion XL 150 MG TAB.ER.24H. PO SCH ×2 (08:32→21:28)
[2016-08-14] MEDS: predniSONE 20 MG TABLET PO SCH (08:32)
[2016-08-14] MEDS: NICOTINE 14MG PATCH. TD SCH (08:33)
[2016-08-14] MEDS: ASPIRIN ENTERIC COATED 81 MG TABLET.DR. PO SCH (08:33)
[2016-08-14] MEDS: hydroCHLOROthiazide 25 MG TABLET PO SCH (08:33)
--- NOTE | 2016-08-14 10:14 | PDOC ---
PULMONARY PROGRESS NOTES Subjective has sob, slightly better. has cough, runny nose, no pain Vitals Vital Signs Date Time Temp Pulse Resp B/P (MAP) Pulse Ox O2 Delivery O2 Flow Rate FiO2 08/14/16 07:50 Nasal Cannula 2.0 08/14/16 07:00 100 08/14/16 07:00 98.0 88 20 114/84 (94) 98.0 ROS: No Nausea, No Abdominal Pain General: Alert, No acute distress HEENT: Other (nc at perrl, nose inflamed mucosa) Lungs: Other (deminished) Cardiovascular: S1, S2 Abdomen: Soft, Non-tender Neuro Exam: Alert, Oriented Extremities: No Edema Skin: Warm Labs Laboratory Tests Test 08/12/16 14:20 08/12/16 15:17 08/12/16 19:30 08/12/16 21:45 White Blood Count 5.3 x10^3/uL (4.0-11.0) Red Blood Count 5.45 x10^6/uL (4.30-5.70) Hemoglobin 15.2 g/dL (13.0-17.5) Hematocrit 44.8 % (39.0-53.0) Mean Corpuscular Volume 82 fL (79-100) Mean Corpuscular Hemoglobin 28 pg (25-35) Mean Corpuscular Hemoglobin Concent 34 g/dL (31-37) Red Cell Distribution Width 16.4 % (11.5-14.5) Platelet Count 239 x10^3/uL (140-400) Neutrophils (%) (Auto) 54 % (31-73) Lymphocytes (%) (Auto) 35 % (24-48) Monocytes (%) (Auto) 10 % (0-9) Eosinophils (%) (Auto) 1 % (0-3) Basophils (%) (Auto) 1 % (0-3) Neutrophils # (Auto) 2.8 x10^3uL (1.8-7.7) Lymphocytes # (Auto) 1.9 x10^3/uL (1.0-4.8) Monocytes # (Auto) 0.5 x10^3/uL (0.0-1.1) Eosinophils # (Auto) 0.0 x10^3/uL (0.0-0.7) Basophils # (Auto) 0.0 x10^3/uL (0.0-0.2) Prothrombin Time 13.4 SEC (11.7-14.0) Prothromb Time International Ratio 1.1 (0.8-1.1) Activated Partial Thromboplast Time 31 SEC (24-38) Sodium Level 135 mmol/L (136-145) Potassium Level 3.7 mmol/L (3.5-5.1) Chloride Level 98 mmol/L (98-107) Carbon Dioxide Level 29 mmol/L (21-32) Anion Gap 8 (6-14) Blood Urea Nitrogen 7 mg/dL (8-26) Creatinine 0.6 mg/dL (0.7-1.3) Estimated GFR (Cockcroft-Gault) 166.3 BUN/Creatinine Ratio 12 (6-20) Glucose Level 104 mg/dL (70-99) Lactic Acid Level 1.5 mmol/L (0.4-2.0) Calcium Level 9.5 mg/dL (8.5-10.1) Magnesium Level 1.6 mg/dL (1.8-2.4) Total Bilirubin 1.1 mg/dL (0.2-1.0) Aspartate Amino Transf (AST/SGOT) 79 U/L (15-37) Alanine Aminotransferase (ALT/SGPT) 79 U/L (16-63) Alkaline Phosphatase 82 U/L (46-116) Creatine Kinase 261 U/L (39-308) Troponin I Quantitative < 0.017 ng/mL (0.000-0.055) < 0.017 ng/mL (0.000-0.055) QT-Bny-H-Type Natriuretic Peptide 39 pg/mL (0-124) Total Protein 8.2 g/dL (6.4-8.2) Albumin 3.4 g/dL (3.4-5.0) Albumin/Globulin Ratio 0.7 (1.0-1.7) Lipase 70 U/L (73-393) Ethyl Alcohol Level < 10 mg/dL (0-10) Urine Collection Type Void Urine Color Yellow Urine Clarity Clear Urine pH 7.0 Urine Specific [place] 1.010 Urine Protein Negative mg/dL (NEG-TRACE) Urine Glucose (UA) Negative mg/dL (NEG) Urine Ketones (Stick) Trace mg/dL (NEG) Urine Blood Negative (NEG) Urine Nitrite Negative (NEG) Urine Bilirubin Negative (NEG) Urine Urobilinogen Dipstick 1.0 mg/dL (0.2 mg/dL) Urine Leukocyte Esterase Negative (NEG) Urine RBC Rare /HPF (0-2) Urine WBC Rare /HPF (0-4) Urine Squamous Epithelial Cells Few /LPF Urine Bacteria 0 /HPF (0-FEW) Urine Opiates Screen Pos (NEG) Urine Methadone Screen Neg (NEG) Urine Barbiturates Neg (NEG) Urine Phencyclidine Screen Neg (NEG) Urine Amphetamine/Methamphetamine Neg (NEG) Urine Benzodiazepines Screen Neg (NEG) Urine Cocaine Screen Neg (NEG) Urine Cannabinoids Screen Neg (NEG) Urine Ethyl Alcohol Neg (NEG) Nasal Screen MRSA (PCR) Positive (Negative) Test 08/13/16 02:45 08/13/16 03:00 Sodium Level 135 mmol/L (136-145) Potassium Level 4.3 mmol/L (3.5-5.1) Chloride Level 98 mmol/L (98-107) Carbon Dioxide Level 27 mmol/L (21-32) Anion Gap 10 (6-14) Blood Urea Nitrogen 9 mg/dL (8-26) Creatinine 0.7 mg/dL (0.7-1.3) Estimated GFR (Cockcroft-Gault) 139.2 Glucose Level 150 mg/dL (70-99) Calcium Level 9.3 mg/dL (8.5-10.1) Magnesium Level 1.8 mg/dL (1.8-2.4) Troponin I Quantitative < 0.017 ng/mL (0.000-0.055) Triglycerides Level 26 mg/dL (0-150) Cholesterol Level 88 mg/dL (0-200) LDL Cholesterol, Calculated 37 mg/dL (0-100) VLDL Cholesterol, Calculated 5 mg/dL (0-40) Non-HDL Cholesterol Calculated 42 mg/dL (0-129) HDL Cholesterol 46 mg/dL (40-60) Cholesterol/HDL Ratio 1.9 White Blood Count 4.3 x10^3/uL (4.0-11.0) Red Blood Count 5.33 x10^6/uL (4.30-5.70) Hemoglobin 15.0 g/dL (13.0-17.5) Hematocrit 44.5 % (39.0-53.0) Mean Corpuscular Volume 83 fL (79-100) Mean Corpuscular Hemoglobin 28 pg (25-35) Mean Corpuscular Hemoglobin Concent 34 g/dL (31-37) Red Cell Distribution Width 16.6 % (11.5-14.5) Platelet Count 230 x10^3/uL (140-400) Neutrophils (%) (Auto) 80 % (31-73) Lymphocytes (%) (Auto) 16 % (24-48) Monocytes (%) (Auto) 3 % (0-9) Eosinophils (%) (Auto) 0 % (0-3) Basophils (%) (Auto) 1 % (0-3) Neutrophils # (Auto) 3.4 x10^3uL (1.8-7.7) Lymphocytes # (Auto) 0.7 x10^3/uL (1.0-4.8) Monocytes # (Auto) 0.1 x10^3/uL (0.0-1.1) Eosinophils # (Auto) 0.0 x10^3/uL (0.0-0.7) Basophils # (Auto) 0.0 x10^3/uL (0.0-0.2) Medications Active Scripts Medications Dose Route/Sig Max Daily Dose Days Date Category Duoneb 0.5-3(2.5) Mg/3 Ml (Albuterol/Ipratropium) 3 Ml Ampul.neb 3 Ml NEB RTQID 04/02/16 Rx Montelukast Sodium Tablet (Montelukast Sodium) 10 Mg Tablet 5 Mg PO HS 04/02/16 Rx Spiriva (Tiotropium [place]) 18 Mcg Cap.w.dev 2 Inh IH DAILY 04/02/16 Rx Hydrochlorothiazide Tablet (Hydrochlorothiazide) 25 Mg Tablet 1 Tab PO DAILY 04/01/16 Reported Bupropion HCl ER (Bupropion HCl) 200 Mg Tablet.er 150 Mg PO BID 04/01/16 Reported Aspir 81 (Aspirin) 81 Mg Tablet.dr 1 Tab PO DAILY 04/01/16 Reported Clonazepam 0.5 Mg Tablet 1 Tab PO PRN TID PRN 04/01/16 Reported Pravastatin Sodium 40 Mg Tablet 1 Tab PO QHS 04/01/16 Reported Advair 250-50 Diskus (Fluticasone/Salmeterol) 1 Each Disk.w.dev 1 Puff IH BID 03/24/16 Rx Xanax (Alprazolam) 0.5 Mg Tablet 1 Tab PO DAILY 03/24/16 Rx Duoneb 0.5-3(2.5) Mg/3 Ml (Albuterol/Ipratropium) 3 Ml Ampul.neb 3 Ml NEB Q4HRS PRN 03/20/16 Reported Trazodone Hcl 100 Mg Tablet 1 Tab PO QHS 01/26/16 Reported Comments echo reviewed, The left ventricular systolic function is normal and the ejection fraction is within normal range. The Ejection Fraction is 55-60%. There is normal LV segmental wall motion. Impression . IMPRESSION: 1. [id number] respiratory failure, multifactorial in etiology including acute exacerbation of chronic obstructive pulmonary disease, acute bronchitis, rule out cardiac etiology versus others. 2. Acute exacerbation of chronic obstructive pulmonary disease. 3. Acute bronchitis. 4. Tobacco habituation. 5. Anxiety. 6. allergic rhinitis Plan . PLAN AND RECOMMENDATIONS: 1. I had a long discussion with him regarding the smoking cessation. I have advised him to stop smoking forever. 2. Titrate FiO2 to keep O2 saturation 92%. 3. Prednisone 40 mg daily. 4. Singulair. 5. Bronchodilator. 6. Inhaled corticosteroid. 7. I agree with Rocephin and doxycycline. 8. Lovenox for DVT prophylaxis. 9. Protonix for stress ulcer prophylaxis. 10. Monitor respiratory status very closely. 11. Cardiology is consulted, agree with echocardiogram. 12. add singulair MANAV Navarro pt, MD August 14, 2016 10:14
[2016-08-14 11:00] VITALS: BP 120/79
--- NOTE | 2016-08-14 12:20 | PDOC ---
PROGRESS NOTES Chief Complaint Chief Complaint COPD exacerbation History of Present Illness History of Present Illness Pt was lying in bed w/ NAD Reports breathing improvement Vitals Vitals Vital Signs Date Time Temp Pulse Resp B/P (MAP) Pulse Ox O2 Delivery O2 Flow Rate FiO2 08/14/16 11:04 98 Nasal Cannula 2.0 08/14/16 11:00 98.2 74 120/79 (93) 98.2 08/14/16 07:00 20 Physical Exam General: Alert, Oriented X3, Cooperative, mild distress Heart: Regular rate, Normal S1, Normal S2 Lungs: Clear, Other (Decreased breath sounds b/l) Abdomen: Normal bowel sounds, Soft Extremities: No cyanosis, Other (1+ bilateral LE pitting edema) Skin: No breakdown, No significant lesion Review of Systems Review of Systems Denies chest pain Denies N/V/D Assessment and Plan Assessmemt and Plan Problems Medical Problems: (1) COPD with acute exacerbation Status: Acute Assessment: 1. [id number] respiratory failure, multifactorial in etiology including acute exacerbation of chronic obstructive pulmonary disease, acute bronchitis, rule out cardiac etiology versus others. 2. Acute exacerbation of chronic obstructive pulmonary disease. 3. Acute bronchitis. 4. Tobacco habituation. 5. Anxiety. 6. allergic rhinitis Plan: Echo reviewed - normal EF, no abnormalities noted Continue pulmonary recommendations Continue Rocephin and Doxy DVT prophylaxis GI prophylaxis Check labs in am PT/OT Continue home meds Quit smoking Subspecialty input appreciated Problems: Comment Review of Relevant I have reviewed the following items kyleigh (where applicable) has been applied. Labs Laboratory Tests Test 08/12/16 14:20 08/12/16 15:17 08/12/16 19:30 08/12/16 21:45 White Blood Count 5.3 x10^3/uL (4.0-11.0) Red Blood Count 5.45 x10^6/uL (4.30-5.70) Hemoglobin 15.2 g/dL (13.0-17.5) Hematocrit 44.8 % (39.0-53.0) Mean Corpuscular Volume 82 fL (79-100) Mean Corpuscular Hemoglobin 28 pg (25-35) Mean Corpuscular Hemoglobin Concent 34 g/dL (31-37) Red Cell Distribution Width 16.4 % (11.5-14.5) Platelet Count 239 x10^3/uL (140-400) Neutrophils (%) (Auto) 54 % (31-73) Lymphocytes (%) (Auto) 35 % (24-48) Monocytes (%) (Auto) 10 % (0-9) Eosinophils (%) (Auto) 1 % (0-3) Basophils (%) (Auto) 1 % (0-3) Neutrophils # (Auto) 2.8 x10^3uL (1.8-7.7) Lymphocytes # (Auto) 1.9 x10^3/uL (1.0-4.8) Monocytes # (Auto) 0.5 x10^3/uL (0.0-1.1) Eosinophils # (Auto) 0.0 x10^3/uL (0.0-0.7) Basophils # (Auto) 0.0 x10^3/uL (0.0-0.2) Prothrombin Time 13.4 SEC (11.7-14.0) Prothromb Time International Ratio 1.1 (0.8-1.1) Activated Partial Thromboplast Time 31 SEC (24-38) Sodium Level 135 mmol/L (136-145) Potassium Level 3.7 mmol/L (3.5-5.1) Chloride Level 98 mmol/L (98-107) Carbon Dioxide Level 29 mmol/L (21-32) Anion Gap 8 (6-14) Blood Urea Nitrogen 7 mg/dL (8-26) Creatinine 0.6 mg/dL (0.7-1.3) Estimated GFR (Cockcroft-Gault) 166.3 BUN/Creatinine Ratio 12 (6-20) Glucose Level 104 mg/dL (70-99) Lactic Acid Level 1.5 mmol/L (0.4-2.0) Calcium Level 9.5 mg/dL (8.5-10.1) Magnesium Level 1.6 mg/dL (1.8-2.4) Total Bilirubin 1.1 mg/dL (0.2-1.0) Aspartate Amino Transf (AST/SGOT) 79 U/L (15-37) Alanine Aminotransferase (ALT/SGPT) 79 U/L (16-63) Alkaline Phosphatase 82 U/L (46-116) Creatine Kinase 261 U/L (39-308) Troponin I Quantitative < 0.017 ng/mL (0.000-0.055) < 0.017 ng/mL (0.000-0.055) CJ-Rry-O-Type Natriuretic Peptide 39 pg/mL (0-124) Total Protein 8.2 g/dL (6.4-8.2) Albumin 3.4 g/dL (3.4-5.0) Albumin/Globulin Ratio 0.7 (1.0-1.7) Lipase 70 U/L (73-393) Ethyl Alcohol Level < 10 mg/dL (0-10) Urine Collection Type Void Urine Color Yellow Urine Clarity Clear Urine pH 7.0 Urine Specific [place] 1.010 Urine Protein Negative mg/dL (NEG-TRACE) Urine Glucose (UA) Negative mg/dL (NEG) Urine Ketones (Stick) Trace mg/dL (NEG) Urine Blood Negative (NEG) Urine Nitrite Negative (NEG) Urine Bilirubin Negative (NEG) Urine Urobilinogen Dipstick 1.0 mg/dL (0.2 mg/dL) Urine Leukocyte Esterase Negative (NEG) Urine RBC Rare /HPF (0-2) Urine WBC Rare /HPF (0-4) Urine Squamous Epithelial Cells Few /LPF Urine Bacteria 0 /HPF (0-FEW) Urine Opiates Screen Pos (NEG) Urine Methadone Screen Neg (NEG) Urine Barbiturates Neg (NEG) Urine Phencyclidine Screen Neg (NEG) Urine Amphetamine/Methamphetamine Neg (NEG) Urine Benzodiazepines Screen Neg (NEG) Urine Cocaine Screen Neg (NEG) Urine Cannabinoids Screen Neg (NEG) Urine Ethyl Alcohol Neg (NEG) Nasal Screen MRSA (PCR) Positive (Negative) Test 08/13/16 02:45 08/13/16 03:00 Sodium Level 135 mmol/L (136-145) Potassium Level 4.3 mmol/L (3.5-5.1) Chloride Level 98 mmol/L (98-107) Carbon Dioxide Level 27 mmol/L (21-32) Anion Gap 10 (6-14) Blood Urea Nitrogen 9 mg/dL (8-26) Creatinine 0.7 mg/dL (0.7-1.3) Estimated GFR (Cockcroft-Gault) 139.2 Glucose Level 150 mg/dL (70-99) Calcium Level 9.3 mg/dL (8.5-10.1) Magnesium Level 1.8 mg/dL (1.8-2.4) Troponin I Quantitative < 0.017 ng/mL (0.000-0.055) Triglycerides Level 26 mg/dL (0-150) Cholesterol Level 88 mg/dL (0-200) LDL Cholesterol, Calculated 37 mg/dL (0-100) VLDL Cholesterol, Calculated 5 mg/dL (0-40) Non-HDL Cholesterol Calculated 42 mg/dL (0-129) HDL Cholesterol 46 mg/dL (40-60) Cholesterol/HDL Ratio 1.9 White Blood Count 4.3 x10^3/uL (4.0-11.0) Red Blood Count 5.33 x10^6/uL (4.30-5.70) Hemoglobin 15.0 g/dL (13.0-17.5) Hematocrit 44.5 % (39.0-53.0) Mean Corpuscular Volume 83 fL (79-100) Mean Corpuscular Hemoglobin 28 pg (25-35) Mean Corpuscular Hemoglobin Concent 34 g/dL (31-37) Red Cell Distribution Width 16.6 % (11.5-14.5) Platelet Count 230 x10^3/uL (140-400) Neutrophils (%) (Auto) 80 % (31-73) Lymphocytes (%) (Auto) 16 % (24-48) Monocytes (%) (Auto) 3 % (0-9) Eosinophils (%) (Auto) 0 % (0-3) Basophils (%) (Auto) 1 % (0-3) Neutrophils # (Auto) 3.4 x10^3uL (1.8-7.7) Lymphocytes # (Auto) 0.7 x10^3/uL (1.0-4.8) Monocytes # (Auto) 0.1 x10^3/uL (0.0-1.1) Eosinophils # (Auto) 0.0 x10^3/uL (0.0-0.7) Basophils # (Auto) 0.0 x10^3/uL (0.0-0.2) Medications Current Medications Morphine Sulfate 5 mg 1X ONCE IV Last administered on 08/12/16 14:20; Start 08/12/16 at 14:30; Stop 08/12/16 at 14:31; Status DC Methylprednisolone Sodium Succinate (Solu-Medrol 125mg Vial) 125 mg 1X ONCE IV Last administered on 08/12/16 14:20; Start 08/12/16 at 14:30; Stop 08/12/16 at 14:31; Status DC Ondansetron HCl (Zofran) 8 mg 1X ONCE IV Last administered on 08/12/16 14:20 ; Start 08/12/16 at 14:30; Stop 08/12/16 at 14:31; Status DC Albuterol/ Ipratropium (Duoneb) 3 ml 1X ONCE NEB Last administered on 15:08; Start 08/12/16 at 14:30; Stop 08/12/16 at 14:31; Status DC Clonidine HCl (Catapres) 0.1 mg 1X ONCE PO Last administered on 08/12/16 14: 20; Start 08/12/16 at 14:30; Stop 08/12/16 at 14:31; Status DC Ondansetron HCl (Zofran) 4 mg PRN Q8HRS PRN IV NAUSEA/VOMITING; Start 08/12/16 at 15:45; Stop 08/13/16 at 15:44; Status DC Fentanyl Citrate (Fentanyl 2ml Vial) 50 mcg PRN Q2HR PRN IV PAIN; Start at 15:45; Stop 08/13/16 at 15:44; Status DC Albuterol/ Ipratropium (Duoneb) 3 ml RTQID NEB ; Start 08/12/16 at 20:00; Stop 08/12/16 at 20:00; Status DC Alprazolam (Xanax) 0.5 mg PRN DAILY PRN PO ANXIETY Last administered on 08:32; Start 08/12/16 at 17:30 Aspirin (Ecotrin) 81 mg DAILY PO Last administered on 08/14/16 08:33; Start at 09:00 Clonazepam (KlonoPIN) 0.5 mg PRN TID PRN PO ANXIETY / AGITATION Last administered on 08/13/16 21:06; Start 08/12/16 at 17:30 Hydrochlorothiazide (Hydrodiuril) 25 mg DAILY PO Last administered on 08:33; Start 08/13/16 at 09:00 Albuterol Sulfate (Ventolin Neb Soln) 2.5 mg PRN Q4HRS PRN NEB SHORTNESS OF BREATH Last administered on 08/14/16 04:14; Start 08/12/16 at 18:00 Albuterol/ Ipratropium (Duoneb) 3 ml Q4HRS W/A NEB Last administered on 11:03; Start 08/12/16 at 18:00 Montelukast Sodium (Singulair) 5 mg HS PO Last administered on 08/13/16 21:06 ; Start 08/12/16 at 21:00 Trazodone HCl (Desyrel) 100 mg QHS PO Last administered on 08/13/16 21:07; Start 08/12/16 at 21:00 Bupropion HCl (Wellbutrin Xl) 150 mg BID PO Last administered on 08/14/16 08: 32; Start 08/12/16 at 21:00 Atorvastatin Calcium (Lipitor) 10 mg QHS PO Last administered on 08/13/16 21: 07; Start 08/12/16 at 21:00 Hydroxyzine HCl (Atarax) 10 mg PRN Q6HRS PRN PO ITCHING; Start 08/12/16 at 17: 30 Budesonide (Pulmicort) 0.5 mg RTBID NEB Last administered on 08/14/16 06:59; Start 08/12/16 at 20:00 Prednisone (Prednisone) 40 mg DAILY PO Last administered on 08/14/16 08:32; Start 08/13/16 at 09:00 Ceftriaxone Sodium 1 gm/ Sodium Chloride 50 ml @ 100 mls/hr Q24H IV Last administered on 08/13/16 18:14; Start 08/12/16 at 19:00 Doxycycline Hyclate (Vibra-Tab) 100 mg BID PO Last administered on 08/14/16 08 :32; Start 08/12/16 at 18:00 Pneumococcal Polyvalent Vaccine (Do NOT chart on this placeholder) 1 each 1X ONCE MC ; Start 08/13/16 at 09:00; Stop 08/13/16 at 09:01; Status UNV Pneumococcal Polyvalent Vaccine (Pneumovax 23) 0.5 ml ONCE ONCE VAX IM ; Start 08/13/16 at 09:00; Stop 08/13/16 at 09:01; Status DC Nicotine (Nicoderm Cq 14mg) 1 patch DAILY TD Last administered on 08/14/16 08: 33; Start 08/13/16 at 11:45 Enoxaparin Sodium (Lovenox 40mg Syringe) 40 mg Q24H SQ Last administered on 17:22; Start 08/13/16 at 14:00 Pantoprazole Sodium (Protonix) 40 mg DAILYAC PO Last administered on 08/14/16 08:32; Start 08/13/16 at 16:30 Montelukast Sodium (Singulair) 10 mg QHS PO ; Start 08/14/16 at 21:00 Active Scripts Active Duoneb 0.5-3(2.5) Mg/3 Ml (Albuterol/Ipratropium) 3 Ml Ampul.neb 3 Ml NEB RTQID Montelukast Sodium Tablet (Montelukast Sodium) 10 Mg Tablet 5 Mg PO HS Spiriva (Tiotropium [place]) 18 Mcg Cap.w.dev 2 Inh IH DAILY Advair 250-50 Diskus (Fluticasone/Salmeterol) 1 Each Disk.w.dev 1 Puff IH BID Xanax (Alprazolam) 0.5 Mg Tablet 1 Tab PO DAILY Reported Hydrochlorothiazide Tablet (Hydrochlorothiazide) 25 Mg Tablet 1 Tab PO DAILY Bupropion HCl ER (Bupropion HCl) 200 Mg Tablet.er 150 Mg PO BID Aspir 81 (Aspirin) 81 Mg Tablet.dr 1 Tab PO DAILY Clonazepam 0.5 Mg Tablet 1 Tab PO PRN TID PRN Pravastatin Sodium 40 Mg Tablet 1 Tab PO QHS Duoneb 0.5-3(2.5) Mg/3 Ml (Albuterol/Ipratropium) 3 Ml Ampul.neb 3 Ml NEB Q4HRS PRN Trazodone Hcl 100 Mg Tablet 1 Tab PO QHS Vitals/I & O Vital Sign - Last 24 Hours 08/13/16 08/13/16 08/13/16 08/13/16 15:00 15:22 19:00 19:40 Temp 98.4 98.4 98.4 98.4 Pulse 80 Resp 22 20 B/P (MAP) 117/82 (94) 124/85 (98) Pulse Ox 98 94 97 O2 Delivery Room Air Nasal Cannula Room Air Nasal Cannula O2 Flow Rate 1.0 2.0 5/12/17 5/12/17 5/12/17 5/13/17 19:42 20:00 23:59 03:59 Temp 98.1 98.1 98.1 98.1 Pulse 79 93 Resp 18 22 B/P (MAP) 117/88 (98) 115/84 (94) Pulse Ox 97 98 98 O2 Delivery Nasal Cannula Nasal Cannula Nasal Cannula Nasal Cannula O2 Flow Rate 2.0 2.0 2.0 2.0 08/14/16 08/14/16 08/14/16 08/14/16 04:13 07:00 07:00 07:50 Temp 98.0 98.0 Pulse 88 Resp 20 B/P (MAP) 114/84 (94) Pulse Ox 97 100 O2 Delivery Nasal Cannula Room Air Nasal Cannula Nasal Cannula O2 Flow Rate 2.0 2.5 2.0 08/14/16 08/14/16 11:00 11:04 Temp 98.2 98.2 Pulse 74 B/P (MAP) 120/79 (93) Pulse Ox 98 98 O2 Delivery Room Air Nasal Cannula O2 Flow Rate 2.0 Intake and Output 08/13/16 08/13/16 08/14/16 15:00 23:00 07:00 Intake Total 1140 ml 1230 ml 200 ml Output Total 600 ml 2000 ml 450 ml Balance 540 ml -770 ml -250 ml VALENTÍN AYERS III DO August 14, 2016 12:20
[2016-08-14] MEDS: ENOXAPARIN 40 MG/0.4 ML SYRINGE. SQ SCH (14:08)
[2016-08-14] MEDS: clonazePAM 0.5 MG TABLET PO PRN ×2 (14:08→21:27)
[2016-08-14 15:00] VITALS: BP 136/76
[2016-08-14 19:59] VITALS: BP 115/82
[2016-08-14] MEDS: MONTELUKAST SODIUM 10 MG TABLET. PO SCH (21:27)
[2016-08-14] MEDS: traZODone 100 MG TABLET. PO SCH (21:27)
[2016-08-14] MEDS: ATORVASTATIN CALCIUM 10 MG TABLET. PO SCH (21:28)
[2016-08-14 23:29] VITALS: BP 118/81
[2016-08-15] MEDS: IPRATRPIUM/ALBUTEROL 0.5/2.5MG 3 ML NEBU. NEB SCH ×6 (01:56→19:39)
[2016-08-15 03:31] VITALS: BP 106/70
[2016-08-15 05:45] LABS: BASO # 0.1 x10^3/uL (0.0-0.2); BASO % 1 % (0-3); EOS % 0 % (0-3); HEMATOCRIT 42.3 % (39.0-53.0); HEMOGLOBIN 14.2 g/dL (13.0-17.5); LYMPH # 2.4 x10^3/uL (1.0-4.8); LYMPH % 32 % (24-48); MEAN CORPUSCULAR HEMOGLOBIN 28 pg (25-35); MEAN CORPUSCULAR HGB CONC 34 g/dL (31-37); MEAN CORPUSCULAR VOLUME 85 fL (79-100); MONO % 6 % (0-9); NEUT % 61 % (31-73); PLATELET COUNT 217 x10^3/uL (140-400); RED BLOOD COUNT 4.99 x10^6/uL (4.30-5.70); RED CELL DISTRIBUTION WIDTH 16.8 % (11.5-14.5); WHITE BLOOD COUNT 7.6 x10^3/uL (4.0-11.0)
[2016-08-15 06:01] LABS: CREATININE 0.8 mg/dL (0.7-1.3); GFR 119.3; POTASSIUM 3.5 mmol/L (3.5-5.1)
[2016-08-15 07:00] VITALS: BP 120/65
[2016-08-15] MEDS: BUDESONIDE 0.5 MG/2 ML NEBU. NEB SCH ×2 (07:49→19:39)
[2016-08-15] MEDS: buPROPion XL 150 MG TAB.ER.24H. PO SCH ×2 (09:12→20:43)
[2016-08-15] MEDS: ALPRAZolam 0.5 MG TABLET PO PRN (09:12)
[2016-08-15] MEDS: DOXYCYCLINE HYCLATE 100 MG TABLET PO SCH ×2 (09:12→20:43)
[2016-08-15] MEDS: ASPIRIN ENTERIC COATED 81 MG TABLET.DR. PO SCH (09:12)
[2016-08-15] MEDS: hydroCHLOROthiazide 25 MG TABLET PO SCH (09:12)
[2016-08-15] MEDS: PANTOPRAZOLE 40 MG TABLET.DR. PO SCH (09:12)
[2016-08-15] MEDS: NICOTINE 14MG PATCH. TD SCH (09:12)
[2016-08-15] MEDS: predniSONE 20 MG TABLET PO SCH (09:12)
--- NOTE | 2016-08-15 10:24 | PDOC ---
PULMONARY PROGRESS NOTES Subjective has sob, better. has cough, not much sputum, runny nose, no pain Vitals Vital Signs Date Time Temp Pulse Resp B/P (MAP) Pulse Ox O2 Delivery O2 Flow Rate FiO2 08/15/16 08:27 Nasal Cannula 2.0 08/15/16 07:00 98.2 91 22 120/65 (83) 98 98.2 ROS: No Nausea, No Abdominal Pain General: Alert, No acute distress HEENT: Other (nc at perrl, nose inflamed mucosa) Lungs: Other (deminished) Cardiovascular: S1, S2 Abdomen: Soft, Non-tender Neuro Exam: Alert, Oriented Extremities: No Edema Skin: Warm Labs Laboratory Tests Test 08/15/16 05:05 White Blood Count 7.6 x10^3/uL (4.0-11.0) Red Blood Count 4.99 x10^6/uL (4.30-5.70) Hemoglobin 14.2 g/dL (13.0-17.5) Hematocrit 42.3 % (39.0-53.0) Mean Corpuscular Volume 85 fL (79-100) Mean Corpuscular Hemoglobin 28 pg (25-35) Mean Corpuscular Hemoglobin Concent 34 g/dL (31-37) Red Cell Distribution Width 16.8 % (11.5-14.5) Platelet Count 217 x10^3/uL (140-400) Neutrophils (%) (Auto) 61 % (31-73) Lymphocytes (%) (Auto) 32 % (24-48) Monocytes (%) (Auto) 6 % (0-9) Eosinophils (%) (Auto) 0 % (0-3) Basophils (%) (Auto) 1 % (0-3) Neutrophils # (Auto) 4.6 x10^3uL (1.8-7.7) Lymphocytes # (Auto) 2.4 x10^3/uL (1.0-4.8) Monocytes # (Auto) 0.5 x10^3/uL (0.0-1.1) Eosinophils # (Auto) 0.0 x10^3/uL (0.0-0.7) Basophils # (Auto) 0.1 x10^3/uL (0.0-0.2) Sodium Level 142 mmol/L (136-145) Potassium Level 3.5 mmol/L (3.5-5.1) Chloride Level 104 mmol/L (98-107) Carbon Dioxide Level 30 mmol/L (21-32) Anion Gap 8 (6-14) Blood Urea Nitrogen 13 mg/dL (8-26) Creatinine 0.8 mg/dL (0.7-1.3) Estimated GFR (Cockcroft-Gault) 119.3 Glucose Level 104 mg/dL (70-99) Calcium Level 9.0 mg/dL (8.5-10.1) Laboratory Tests Test 08/15/16 05:05 White Blood Count 7.6 x10^3/uL (4.0-11.0) Red Blood Count 4.99 x10^6/uL (4.30-5.70) Hemoglobin 14.2 g/dL (13.0-17.5) Hematocrit 42.3 % (39.0-53.0) Mean Corpuscular Volume 85 fL (79-100) Mean Corpuscular Hemoglobin 28 pg (25-35) Mean Corpuscular Hemoglobin Concent 34 g/dL (31-37) Red Cell Distribution Width 16.8 % (11.5-14.5) Platelet Count 217 x10^3/uL (140-400) Neutrophils (%) (Auto) 61 % (31-73) Lymphocytes (%) (Auto) 32 % (24-48) Monocytes (%) (Auto) 6 % (0-9) Eosinophils (%) (Auto) 0 % (0-3) Basophils (%) (Auto) 1 % (0-3) Neutrophils # (Auto) 4.6 x10^3uL (1.8-7.7) Lymphocytes # (Auto) 2.4 x10^3/uL (1.0-4.8) Monocytes # (Auto) 0.5 x10^3/uL (0.0-1.1) Eosinophils # (Auto) 0.0 x10^3/uL (0.0-0.7) Basophils # (Auto) 0.1 x10^3/uL (0.0-0.2) Sodium Level 142 mmol/L (136-145) Potassium Level 3.5 mmol/L (3.5-5.1) Chloride Level 104 mmol/L (98-107) Carbon Dioxide Level 30 mmol/L (21-32) Anion Gap 8 (6-14) Blood Urea Nitrogen 13 mg/dL (8-26) Creatinine 0.8 mg/dL (0.7-1.3) Estimated GFR (Cockcroft-Gault) 119.3 Glucose Level 104 mg/dL (70-99) Calcium Level 9.0 mg/dL (8.5-10.1) Medications Active Scripts Medications Dose Route/Sig Max Daily Dose Days Date Category Duoneb 0.5-3(2.5) Mg/3 Ml (Albuterol/Ipratropium) 3 Ml Ampul.neb 3 Ml NEB RTQID 04/02/16 Rx Montelukast Sodium Tablet (Montelukast Sodium) 10 Mg Tablet 5 Mg PO HS 04/02/16 Rx Spiriva (Tiotropium [place]) 18 Mcg Cap.w.dev 2 Inh IH DAILY 04/02/16 Rx Hydrochlorothiazide Tablet (Hydrochlorothiazide) 25 Mg Tablet 1 Tab PO DAILY 04/01/16 Reported Bupropion HCl ER (Bupropion HCl) 200 Mg Tablet.er 150 Mg PO BID 04/01/16 Reported Aspir 81 (Aspirin) 81 Mg Tablet.dr 1 Tab PO DAILY 04/01/16 Reported Clonazepam 0.5 Mg Tablet 1 Tab PO PRN TID PRN 04/01/16 Reported Pravastatin Sodium 40 Mg Tablet 1 Tab PO QHS 04/01/16 Reported Advair 250-50 Diskus (Fluticasone/Salmeterol) 1 Each Disk.w.dev 1 Puff IH BID 03/24/16 Rx Xanax (Alprazolam) 0.5 Mg Tablet 1 Tab PO DAILY 03/24/16 Rx Duoneb 0.5-3(2.5) Mg/3 Ml (Albuterol/Ipratropium) 3 Ml Ampul.neb 3 Ml NEB Q4HRS PRN 03/20/16 Reported Trazodone Hcl 100 Mg Tablet 1 Tab PO QHS 01/26/16 Reported Comments echo reviewed, The left ventricular systolic function is normal and the ejection fraction is within normal range. The Ejection Fraction is 55-60%. There is normal LV segmental wall motion. Impression . IMPRESSION: 1. [id number]-[id number] respiratory failure, multifactorial in etiology including acute exacerbation of chronic obstructive pulmonary disease, acute bronchitis, rule out cardiac etiology versus others. 2. Acute exacerbation of chronic obstructive pulmonary disease. 3. Acute bronchitis. 4. Tobacco habituation. 5. Anxiety. 6. allergic rhinitis Plan . PLAN AND RECOMMENDATIONS: 1. I had a long discussion with him regarding the smoking cessation. I have advised him to stop smoking forever. 2. Titrate FiO2 to keep O2 saturation 92%. 3. change Prednisone to 30 mg daily w taper by 10 mg q3d. 4. Singulair. 5. Bronchodilator. 6. Inhaled corticosteroid. 7. cont abx for total of 7 days 8. Lovenox for DVT prophylaxis. 9. Protonix for stress ulcer prophylaxis. 10. Monitor respiratory status very closely. 11. echocardiogram reviewed. 12. singulair discussed w pt MANAV CANTOR MD August 15, 2016 10:24
[2016-08-15 10:58] VITALS: BP 115/82
[2016-08-15] MEDS: clonazePAM 0.5 MG TABLET PO PRN ×2 (12:49→20:43)
--- NOTE | 2016-08-15 14:18 | PDOC ---
PROGRESS NOTES Chief Complaint Chief Complaint COPD exacerbation History of Present Illness History of Present Illness Pt was lying in bed w/ NAD Reports breathing improvement Discussed d/c if pulmonary is ok with it Vitals Vitals Vital Signs Date Time Temp Pulse Resp B/P (MAP) Pulse Ox O2 Delivery O2 Flow Rate FiO2 08/15/16 11:31 98 Nasal Cannula 2.0 08/15/16 10:58 98.3 89 22 115/82 (93) 98.3 Physical Exam General: Alert, Oriented X3, Cooperative, mild distress Heart: Regular rate, Normal S1, Normal S2 Lungs: Clear, Other (deminished) Abdomen: Normal bowel sounds, Soft Extremities: No cyanosis, Other (1+ bilateral LE pitting edema) Skin: No rashes, No breakdown, No significant lesion Labs LABS Laboratory Tests Test 08/15/16 05:05 White Blood Count 7.6 x10^3/uL (4.0-11.0) Red Blood Count 4.99 x10^6/uL (4.30-5.70) Hemoglobin 14.2 g/dL (13.0-17.5) Hematocrit 42.3 % (39.0-53.0) Mean Corpuscular Volume 85 fL (79-100) Mean Corpuscular Hemoglobin 28 pg (25-35) Mean Corpuscular Hemoglobin Concent 34 g/dL (31-37) Red Cell Distribution Width 16.8 % (11.5-14.5) Platelet Count 217 x10^3/uL (140-400) Neutrophils (%) (Auto) 61 % (31-73) Lymphocytes (%) (Auto) 32 % (24-48) Monocytes (%) (Auto) 6 % (0-9) Eosinophils (%) (Auto) 0 % (0-3) Basophils (%) (Auto) 1 % (0-3) Neutrophils # (Auto) 4.6 x10^3uL (1.8-7.7) Lymphocytes # (Auto) 2.4 x10^3/uL (1.0-4.8) Monocytes # (Auto) 0.5 x10^3/uL (0.0-1.1) Eosinophils # (Auto) 0.0 x10^3/uL (0.0-0.7) Basophils # (Auto) 0.1 x10^3/uL (0.0-0.2) Sodium Level 142 mmol/L (136-145) Potassium Level 3.5 mmol/L (3.5-5.1) Chloride Level 104 mmol/L (98-107) Carbon Dioxide Level 30 mmol/L (21-32) Anion Gap 8 (6-14) Blood Urea Nitrogen 13 mg/dL (8-26) Creatinine 0.8 mg/dL (0.7-1.3) Estimated GFR (Cockcroft-Gault) 119.3 Glucose Level 104 mg/dL (70-99) Calcium Level 9.0 mg/dL (8.5-10.1) Review of Systems Review of Systems Denies chest pain Denies SOA Assessment and Plan Assessmemt and Plan Problems Medical Problems: (1) COPD with acute exacerbation Status: Acute Assessment: 1. Njtqf-fo-opauzmb respiratory failure, multifactorial in etiology including acute exacerbation of chronic obstructive pulmonary disease, acute bronchitis, rule out cardiac etiology versus others. 2. Acute exacerbation of chronic obstructive pulmonary disease. 3. Acute bronchitis. 4. Tobacco habituation. 5. Anxiety. 6. allergic rhinitis Plan: Continue pulmonary recommendations - d/c if ok Continue Rocephin and Doxy DVT prophylaxis GI prophylaxis Check labs in am PT/OT Continue home meds Quit smoking Subspecialty input appreciated Problems: Comment Review of Relevant I have reviewed the following items kyleigh (where applicable) has been applied. Labs Laboratory Tests Test 08/15/16 05:05 White Blood Count 7.6 x10^3/uL (4.0-11.0) Red Blood Count 4.99 x10^6/uL (4.30-5.70) Hemoglobin 14.2 g/dL (13.0-17.5) Hematocrit 42.3 % (39.0-53.0) Mean Corpuscular Volume 85 fL (79-100) Mean Corpuscular Hemoglobin 28 pg (25-35) Mean Corpuscular Hemoglobin Concent 34 g/dL (31-37) Red Cell Distribution Width 16.8 % (11.5-14.5) Platelet Count 217 x10^3/uL (140-400) Neutrophils (%) (Auto) 61 % (31-73) Lymphocytes (%) (Auto) 32 % (24-48) Monocytes (%) (Auto) 6 % (0-9) Eosinophils (%) (Auto) 0 % (0-3) Basophils (%) (Auto) 1 % (0-3) Neutrophils # (Auto) 4.6 x10^3uL (1.8-7.7) Lymphocytes # (Auto) 2.4 x10^3/uL (1.0-4.8) Monocytes # (Auto) 0.5 x10^3/uL (0.0-1.1) Eosinophils # (Auto) 0.0 x10^3/uL (0.0-0.7) Basophils # (Auto) 0.1 x10^3/uL (0.0-0.2) Sodium Level 142 mmol/L (136-145) Potassium Level 3.5 mmol/L (3.5-5.1) Chloride Level 104 mmol/L (98-107) Carbon Dioxide Level 30 mmol/L (21-32) Anion Gap 8 (6-14) Blood Urea Nitrogen 13 mg/dL (8-26) Creatinine 0.8 mg/dL (0.7-1.3) Estimated GFR (Cockcroft-Gault) 119.3 Glucose Level 104 mg/dL (70-99) Calcium Level 9.0 mg/dL (8.5-10.1) Laboratory Tests Test 08/15/16 05:05 White Blood Count 7.6 x10^3/uL (4.0-11.0) Red Blood Count 4.99 x10^6/uL (4.30-5.70) Hemoglobin 14.2 g/dL (13.0-17.5) Hematocrit 42.3 % (39.0-53.0) Mean Corpuscular Volume 85 fL (79-100) Mean Corpuscular Hemoglobin 28 pg (25-35) Mean Corpuscular Hemoglobin Concent 34 g/dL (31-37) Red Cell Distribution Width 16.8 % (11.5-14.5) Platelet Count 217 x10^3/uL (140-400) Neutrophils (%) (Auto) 61 % (31-73) Lymphocytes (%) (Auto) 32 % (24-48) Monocytes (%) (Auto) 6 % (0-9) Eosinophils (%) (Auto) 0 % (0-3) Basophils (%) (Auto) 1 % (0-3) Neutrophils # (Auto) 4.6 x10^3uL (1.8-7.7) Lymphocytes # (Auto) 2.4 x10^3/uL (1.0-4.8) Monocytes # (Auto) 0.5 x10^3/uL (0.0-1.1) Eosinophils # (Auto) 0.0 x10^3/uL (0.0-0.7) Basophils # (Auto) 0.1 x10^3/uL (0.0-0.2) Sodium Level 142 mmol/L (136-145) Potassium Level 3.5 mmol/L (3.5-5.1) Chloride Level 104 mmol/L (98-107) Carbon Dioxide Level 30 mmol/L (21-32) Anion Gap 8 (6-14) Blood Urea Nitrogen 13 mg/dL (8-26) Creatinine 0.8 mg/dL (0.7-1.3) Estimated GFR (Cockcroft-Gault) 119.3 Glucose Level 104 mg/dL (70-99) Calcium Level 9.0 mg/dL (8.5-10.1) Medications Current Medications Morphine Sulfate 5 mg 1X ONCE IV Last administered on 08/12/16 14:20; Start 08/12/16 at 14:30; Stop 08/12/16 at 14:31; Status DC Methylprednisolone Sodium Succinate (Solu-Medrol 125mg Vial) 125 mg 1X ONCE IV Last administered on 08/12/16 14:20; Start 08/12/16 at 14:30; Stop 08/12/16 at 14:31; Status DC Ondansetron HCl (Zofran) 8 mg 1X ONCE IV Last administered on 08/12/16 14:20 ; Start 08/12/16 at 14:30; Stop 08/12/16 at 14:31; Status DC Albuterol/ Ipratropium (Duoneb) 3 ml 1X ONCE NEB Last administered on 15:08; Start 08/12/16 at 14:30; Stop 08/12/16 at 14:31; Status DC Clonidine HCl (Catapres) 0.1 mg 1X ONCE PO Last administered on 08/12/16 14: 20; Start 08/12/16 at 14:30; Stop 08/12/16 at 14:31; Status DC Ondansetron HCl (Zofran) 4 mg PRN Q8HRS PRN IV NAUSEA/VOMITING; Start 08/12/16 at 15:45; Stop 08/13/16 at 15:44; Status DC Fentanyl Citrate (Fentanyl 2ml Vial) 50 mcg PRN Q2HR PRN IV PAIN; Start at 15:45; Stop 08/13/16 at 15:44; Status DC Albuterol/ Ipratropium (Duoneb) 3 ml RTQID NEB ; Start 08/12/16 at 20:00; Stop 08/12/16 at 20:00; Status DC Alprazolam (Xanax) 0.5 mg PRN DAILY PRN PO ANXIETY Last administered on 09:12; Start 08/12/16 at 17:30 Aspirin (Ecotrin) 81 mg DAILY PO Last administered on 08/15/16 09:12; Start at 09:00 Clonazepam (KlonoPIN) 0.5 mg PRN TID PRN PO ANXIETY / AGITATION Last administered on 08/15/16 12:49; Start 08/12/16 at 17:30 Hydrochlorothiazide (Hydrodiuril) 25 mg DAILY PO Last administered on 09:12; Start 08/13/16 at 09:00 Albuterol Sulfate (Ventolin Neb Soln) 2.5 mg PRN Q4HRS PRN NEB SHORTNESS OF BREATH Last administered on 08/14/16 04:14; Start 08/12/16 at 18:00 Albuterol/ Ipratropium (Duoneb) 3 ml Q4HRS W/A NEB Last administered on 11:30; Start 08/12/16 at 18:00 Montelukast Sodium (Singulair) 5 mg HS PO Last administered on 08/13/16 21:06 ; Start 08/12/16 at 21:00; Stop 08/14/16 at 15:00; Status DC Trazodone HCl (Desyrel) 100 mg QHS PO Last administered on 08/14/16 21:27; Start 08/12/16 at 21:00 Bupropion HCl (Wellbutrin Xl) 150 mg BID PO Last administered on 08/15/16 09: 12; Start 08/12/16 at 21:00 Atorvastatin Calcium (Lipitor) 10 mg QHS PO Last administered on 08/14/16 21: 28; Start 08/12/16 at 21:00 Hydroxyzine HCl (Atarax) 10 mg PRN Q6HRS PRN PO ITCHING; Start 08/12/16 at 17: 30 Budesonide (Pulmicort) 0.5 mg RTBID NEB Last administered on 08/15/16 07:49; Start 08/12/16 at 20:00 Prednisone (Prednisone) 40 mg DAILY PO Last administered on 08/15/16 09:12; Start 08/13/16 at 09:00; Stop 08/15/16 at 10:25; Status DC Ceftriaxone Sodium 1 gm/ Sodium Chloride 50 ml @ 100 mls/hr Q24H IV Last administered on 08/14/16 18:45; Start 08/12/16 at 19:00 Doxycycline Hyclate (Vibra-Tab) 100 mg BID PO Last administered on 08/15/16 09 :12; Start 08/12/16 at 18:00 Pneumococcal Polyvalent Vaccine (Do NOT chart on this placeholder) 1 each 1X ONCE MC ; Start 08/13/16 at 09:00; Stop 08/13/16 at 09:01; Status UNV Pneumococcal Polyvalent Vaccine (Pneumovax 23) 0.5 ml ONCE ONCE VAX IM Last administered on 08/15/16 12:52; Start 08/13/16 at 09:00; Stop 08/13/16 at 09:01 ; Status DC Nicotine (Nicoderm Cq 14mg) 1 patch DAILY TD Last administered on 08/15/16 09: 12; Start 08/13/16 at 11:45 Enoxaparin Sodium (Lovenox 40mg Syringe) 40 mg Q24H SQ Last administered on 14:08; Start 08/13/16 at 14:00 Pantoprazole Sodium (Protonix) 40 mg DAILYAC PO Last administered on 08/15/16 09:12; Start 08/13/16 at 16:30 Montelukast Sodium (Singulair) 10 mg QHS PO Last administered on 08/14/16 21: 27; Start 08/14/16 at 21:00 Prednisone (Prednisone) 30 mg DAILY PO ; Start 08/16/16 at 09:00 Active Scripts Active Duoneb 0.5-3(2.5) Mg/3 Ml (Albuterol/Ipratropium) 3 Ml Ampul.neb 3 Ml NEB RTQID Montelukast Sodium Tablet (Montelukast Sodium) 10 Mg Tablet 5 Mg PO HS Spiriva (Tiotropium [place]) 18 Mcg Cap.w.dev 2 Inh IH DAILY Advair 250-50 Diskus (Fluticasone/Salmeterol) 1 Each Disk.w.dev 1 Puff IH BID Xanax (Alprazolam) 0.5 Mg Tablet 1 Tab PO DAILY Reported Hydrochlorothiazide Tablet (Hydrochlorothiazide) 25 Mg Tablet 1 Tab PO DAILY Bupropion HCl ER (Bupropion HCl) 200 Mg Tablet.er 150 Mg PO BID Aspir 81 (Aspirin) 81 Mg Tablet.dr 1 Tab PO DAILY Clonazepam 0.5 Mg Tablet 1 Tab PO PRN TID PRN Pravastatin Sodium 40 Mg Tablet 1 Tab PO QHS Duoneb 0.5-3(2.5) Mg/3 Ml (Albuterol/Ipratropium) 3 Ml Ampul.neb 3 Ml NEB Q4HRS PRN Trazodone Hcl 100 Mg Tablet 1 Tab PO QHS Vitals/I & O Vital Sign - Last 24 Hours 08/14/16 08/14/16 08/14/16 08/14/16 15:00 15:43 19:16 19:17 Temp 98.0 98.0 Pulse 86 Resp 22 B/P (MAP) 136/76 (96) Pulse Ox 98 98 98 98 O2 Delivery Nasal Cannula Nasal Cannula Nasal Cannula Nasal Cannula O2 Flow Rate 2.0 2.0 2.0 2.0 08/14/16 08/14/16 08/14/16 08/15/16 19:59 20:00 23:29 03:31 Temp 98.1 97.3 98.0 98.1 97.3 98.0 Pulse 81 69 74 Resp 20 18 20 B/P (MAP) 115/82 (93) 118/81 (93) 106/70 (82) Pulse Ox 98 99 95 O2 Delivery Nasal Cannula Nasal Cannula Nasal Cannula Nasal Cannula O2 Flow Rate 2.0 2.0 2.0 2.0 5/14/17 08/15/16 08/15/16 08/15/16 03:55 07:00 07:49 08:27 Temp 98.2 98.2 Pulse 91 Resp 22 B/P (MAP) 120/65 (83) Pulse Ox 100 98 O2 Delivery Nasal Cannula Nasal Cannula Nasal Cannula Nasal Cannula O2 Flow Rate 2.0 2.0 2.0 2.0 08/15/16 08/15/16 10:58 11:31 Temp 98.3 98.3 Pulse 89 Resp 22 B/P (MAP) 115/82 (93) Pulse Ox 97 98 O2 Delivery Nasal Cannula Nasal Cannula O2 Flow Rate 2.0 2.0 Intake and Output 08/14/16 08/14/16 08/15/16 15:00 23:00 07:00 Intake Total 1360 ml 1130 ml 100 ml Output Total 1400 ml 980 ml 950 ml Balance -40 ml 150 ml -850 ml VALENTÍN AYERS III DO August 15, 2016 14:18
[2016-08-15 14:54] VITALS: BP 119/85
[2016-08-15] MEDS: ENOXAPARIN 40 MG/0.4 ML SYRINGE. SQ SCH (15:47)
[2016-08-15 19:00] VITALS: BP 120/87
[2016-08-15] MEDS: traZODone 100 MG TABLET. PO SCH (20:43)
[2016-08-15] MEDS: MONTELUKAST SODIUM 10 MG TABLET. PO SCH (20:43)
[2016-08-15] MEDS: ATORVASTATIN CALCIUM 10 MG TABLET. PO SCH (20:43)
[2016-08-15 23:00] VITALS: BP 117/70
[2016-08-15] MEDS: ALBUTEROL SULFATE 2.5 MG/3 ML NEBU. NEB PRN (23:32)
[2016-08-16 04:19] LABS: BASO % 0 % (0-3); EOS % 1 % (0-3); HEMATOCRIT 43.8 % (39.0-53.0); HEMOGLOBIN 14.3 g/dL (13.0-17.5); LYMPH # 2.5 x10^3/uL (1.0-4.8); LYMPH % 30 % (24-48); MEAN CORPUSCULAR HEMOGLOBIN 28 pg (25-35); MEAN CORPUSCULAR HGB CONC 33 g/dL (31-37); MEAN CORPUSCULAR VOLUME 84 fL (79-100); MONO % 10 % (0-9); NEUT % 60 % (31-73); PLATELET COUNT 225 x10^3/uL (140-400); RED CELL DISTRIBUTION WIDTH 16.8 % (11.5-14.5); WHITE BLOOD COUNT 8.5 x10^3/uL (4.0-11.0)
[2016-08-16] MEDS: ALBUTEROL SULFATE 2.5 MG/3 ML NEBU. NEB PRN (04:33)
[2016-08-16 04:34] LABS: CALCIUM 9.2 mg/dL (8.5-10.1); CREATININE 0.7 mg/dL (0.7-1.3); GFR 139.2; POTASSIUM 3.7 mmol/L (3.5-5.1)
[2016-08-16 07:00] VITALS: BP 128/69
[2016-08-16] MEDS: BUDESONIDE 0.5 MG/2 ML NEBU. NEB SCH (07:17)
[2016-08-16] MEDS: IPRATRPIUM/ALBUTEROL 0.5/2.5MG 3 ML NEBU. NEB SCH ×2 (07:17→11:14)
[2016-08-16] MEDS: ASPIRIN ENTERIC COATED 81 MG TABLET.DR. PO SCH (08:35)
[2016-08-16] MEDS: buPROPion XL 150 MG TAB.ER.24H. PO SCH (08:35)
[2016-08-16] MEDS: ALPRAZolam 0.5 MG TABLET PO PRN (08:35)
[2016-08-16] MEDS: DOXYCYCLINE HYCLATE 100 MG TABLET PO SCH (08:35)
[2016-08-16] MEDS: hydroCHLOROthiazide 25 MG TABLET PO SCH (08:35)
[2016-08-16] MEDS: PANTOPRAZOLE 40 MG TABLET.DR. PO SCH (08:35)
[2016-08-16] MEDS: NICOTINE 14MG PATCH. TD SCH (08:36)
[2016-08-16] MEDS ORDERED: predniSONE 10 MG TABLET PO SCH (09:00)
--- NOTE | 2016-08-16 10:21 | PDOC3 ---
Discharge Summary Visit Information Date of Admission: August 12, 2016 Date of Discharge: August 16, 2016 Admitting Diagnosis Comment: . Ruzjb-[id number]-[id number] respiratory failure, multifactorial in etiology including acute exacerbation of chronic obstructive pulmonary disease, acute bronchitis, rule out cardiac etiology versus others. 2. Acute exacerbation of chronic obstructive pulmonary disease. 3. Acute bronchitis. 4. Tobacco habituation. 5. Anxiety. 6. allergic rhinitis Final Diagnosis Problems Medical Problems: (1) COPD with acute exacerbation Status: Acute Brief Hospital Course Allergies Allergies Coded Allergies Type Severity Reaction Last Updated Verified latex Allergy Intermediate 08/13/16 Yes I S O L A T I O N *CONTACT* Allergy Unknown 03/31/16 Yes Vital Signs Vital Signs Date Time Temp Pulse Resp B/P (MAP) Pulse Ox O2 Delivery O2 Flow Rate FiO2 08/16/16 07:22 100 Nasal Cannula 3.0 08/16/16 07:00 98.2 75 18 128/69 (88) 98.2 Lab Results Laboratory Tests Test 08/15/16 05:05 08/16/16 04:10 White Blood Count 7.6 x10^3/uL (4.0-11.0) 8.5 x10^3/uL (4.0-11.0) Red Blood Count 4.99 x10^6/uL (4.30-5.70) 5.20 x10^6/uL (4.30-5.70) Hemoglobin 14.2 g/dL (13.0-17.5) 14.3 g/dL (13.0-17.5) Hematocrit 42.3 % (39.0-53.0) 43.8 % (39.0-53.0) Mean Corpuscular Volume 85 fL (79-100) 84 fL (79-100) Mean Corpuscular Hemoglobin 28 pg (25-35) 28 pg (25-35) Mean Corpuscular Hemoglobin Concent 34 g/dL (31-37) 33 g/dL (31-37) Red Cell Distribution Width 16.8 % (11.5-14.5) 16.8 % (11.5-14.5) Platelet Count 217 x10^3/uL (140-400) 225 x10^3/uL (140-400) Neutrophils (%) (Auto) 61 % (31-73) 60 % (31-73) Lymphocytes (%) (Auto) 32 % (24-48) 30 % (24-48) Monocytes (%) (Auto) 6 % (0-9) 10 % (0-9) Eosinophils (%) (Auto) 0 % (0-3) 1 % (0-3) Basophils (%) (Auto) 1 % (0-3) 0 % (0-3) Neutrophils # (Auto) 4.6 x10^3uL (1.8-7.7) 5.1 x10^3uL (1.8-7.7) Lymphocytes # (Auto) 2.4 x10^3/uL (1.0-4.8) 2.5 x10^3/uL (1.0-4.8) Monocytes # (Auto) 0.5 x10^3/uL (0.0-1.1) 0.8 x10^3/uL (0.0-1.1) Eosinophils # (Auto) 0.0 x10^3/uL (0.0-0.7) 0.0 x10^3/uL (0.0-0.7) Basophils # (Auto) 0.1 x10^3/uL (0.0-0.2) 0.0 x10^3/uL (0.0-0.2) Sodium Level 142 mmol/L (136-145) 139 mmol/L (136-145) Potassium Level 3.5 mmol/L (3.5-5.1) 3.7 mmol/L (3.5-5.1) Chloride Level 104 mmol/L (98-107) 102 mmol/L (98-107) Carbon Dioxide Level 30 mmol/L (21-32) 30 mmol/L (21-32) Anion Gap 8 (6-14) 7 (6-14) Blood Urea Nitrogen 13 mg/dL (8-26) 12 mg/dL (8-26) Creatinine 0.8 mg/dL (0.7-1.3) 0.7 mg/dL (0.7-1.3) Estimated GFR (Cockcroft-Gault) 119.3 139.2 Glucose Level 104 mg/dL (70-99) 72 mg/dL (70-99) Calcium Level 9.0 mg/dL (8.5-10.1) 9.2 mg/dL (8.5-10.1) Laboratory Tests Test 08/16/16 04:10 White Blood Count 8.5 x10^3/uL (4.0-11.0) Red Blood Count 5.20 x10^6/uL (4.30-5.70) Hemoglobin 14.3 g/dL (13.0-17.5) Hematocrit 43.8 % (39.0-53.0) Mean Corpuscular Volume 84 fL (79-100) Mean Corpuscular Hemoglobin 28 pg (25-35) Mean Corpuscular Hemoglobin Concent 33 g/dL (31-37) Red Cell Distribution Width 16.8 % (11.5-14.5) Platelet Count 225 x10^3/uL (140-400) Neutrophils (%) (Auto) 60 % (31-73) Lymphocytes (%) (Auto) 30 % (24-48) Monocytes (%) (Auto) 10 % (0-9) Eosinophils (%) (Auto) 1 % (0-3) Basophils (%) (Auto) 0 % (0-3) Neutrophils # (Auto) 5.1 x10^3uL (1.8-7.7) Lymphocytes # (Auto) 2.5 x10^3/uL (1.0-4.8) Monocytes # (Auto) 0.8 x10^3/uL (0.0-1.1) Eosinophils # (Auto) 0.0 x10^3/uL (0.0-0.7) Basophils # (Auto) 0.0 x10^3/uL (0.0-0.2) Sodium Level 139 mmol/L (136-145) Potassium Level 3.7 mmol/L (3.5-5.1) Chloride Level 102 mmol/L (98-107) Carbon Dioxide Level 30 mmol/L (21-32) Anion Gap 7 (6-14) Blood Urea Nitrogen 12 mg/dL (8-26) Creatinine 0.7 mg/dL (0.7-1.3) Estimated GFR (Cockcroft-Gault) 139.2 Glucose Level 72 mg/dL (70-99) Calcium Level 9.2 mg/dL (8.5-10.1) Brief Hospital Course Mr. Goodman is a 61 old AA male smoker, admitted for COPD exacerbation, NO pNA.no pT needs Requests some Rx be filled Pt seen and examiend Consults: pulmo Proc none Time 31 mins > 50% counselling Discharge Information Condition at Discharge: Improved, Stable Disposition/Orders: D/C to Home Scheduled Alprazolam (Xanax), 1 TAB PO DAILY Aspirin (Aspir 81), 1 TAB PO DAILY, (Reported) Bupropion HCl (Bupropion HCl ER), 150 MG PO BID, (Reported) Fluticasone/Salmeterol (Advair 250-50 Diskus), 1 PUFF IH BID Hydrochlorothiazide (Hydrochlorothiazide Tablet ), 1 TAB PO DAILY, (Reported) Ipratropium/Albuterol Sulfate (Duoneb 0.5-3(2.5) Mg/3 Ml), 3 ML NEB RTQID Montelukast Sodium (Montelukast Sodium Tablet), 5 MG PO HS Pravastatin Sodium (Pravastatin Sodium), 1 TAB PO QHS, (Reported) Tiotropium [place] (Spiriva), 2 INH IH DAILY Trazodone Hcl (Trazodone Hcl), 1 TAB PO QHS, (Reported) Scheduled PRN Clonazepam (Clonazepam), 1 TAB PO PRN TID PRN for ANXIETY / AGITATION, (Reported ) Ipratropium/Albuterol Sulfate (Duoneb 0.5-3(2.5) Mg/3 Ml), 3 ML NEB Q4HRS PRN for SHORTNESS OF BREATH, (Reported) Discontinued Medications Albuterol Sulfate (Albuterol Sulfate Neb Soln), 2.5 MG NEB PRN Q2HR PRN for SHORTNESS OF BREATH, (Reported) Hydroxyzine Hcl (Hydroxyzine Hcl), 1 TAB PO PRN QID PRN for ANXIETY / AGITATION, (Reported) Ibuprofen (Ibuprofen), 800 MG PO DAILY PRN for INFLAMMATION, (Reported) VIC LOCKHART MD August 16, 2016 10:21
[2016-08-16 10:59] VITALS: BP 129/86
--- NOTE | 2016-08-16 11:50 | PDOC ---
PULMONARY PROGRESS NOTES Subjective has sob, better. has cough, not much sputum, runny nose, no pain Vitals Vital Signs Date Time Temp Pulse Resp B/P (MAP) Pulse Ox O2 Delivery O2 Flow Rate FiO2 08/16/16 11:15 Nasal Cannula 3.0 08/16/16 10:59 97.9 96 22 129/86 (100) 97.9 08/16/16 07:22 100 ROS: No Nausea, No Abdominal Pain General: Alert, No acute distress HEENT: Other (nc at perrl, nose inflamed mucosa) Lungs: Clear Cardiovascular: S1, S2 Abdomen: Soft, Non-tender Neuro Exam: Alert, Oriented Extremities: No Edema Skin: Warm Labs Laboratory Tests Test 08/15/16 05:05 08/16/16 04:10 White Blood Count 7.6 x10^3/uL (4.0-11.0) 8.5 x10^3/uL (4.0-11.0) Red Blood Count 4.99 x10^6/uL (4.30-5.70) 5.20 x10^6/uL (4.30-5.70) Hemoglobin 14.2 g/dL (13.0-17.5) 14.3 g/dL (13.0-17.5) Hematocrit 42.3 % (39.0-53.0) 43.8 % (39.0-53.0) Mean Corpuscular Volume 85 fL (79-100) 84 fL (79-100) Mean Corpuscular Hemoglobin 28 pg (25-35) 28 pg (25-35) Mean Corpuscular Hemoglobin Concent 34 g/dL (31-37) 33 g/dL (31-37) Red Cell Distribution Width 16.8 % (11.5-14.5) 16.8 % (11.5-14.5) Platelet Count 217 x10^3/uL (140-400) 225 x10^3/uL (140-400) Neutrophils (%) (Auto) 61 % (31-73) 60 % (31-73) Lymphocytes (%) (Auto) 32 % (24-48) 30 % (24-48) Monocytes (%) (Auto) 6 % (0-9) 10 % (0-9) Eosinophils (%) (Auto) 0 % (0-3) 1 % (0-3) Basophils (%) (Auto) 1 % (0-3) 0 % (0-3) Neutrophils # (Auto) 4.6 x10^3uL (1.8-7.7) 5.1 x10^3uL (1.8-7.7) Lymphocytes # (Auto) 2.4 x10^3/uL (1.0-4.8) 2.5 x10^3/uL (1.0-4.8) Monocytes # (Auto) 0.5 x10^3/uL (0.0-1.1) 0.8 x10^3/uL (0.0-1.1) Eosinophils # (Auto) 0.0 x10^3/uL (0.0-0.7) 0.0 x10^3/uL (0.0-0.7) Basophils # (Auto) 0.1 x10^3/uL (0.0-0.2) 0.0 x10^3/uL (0.0-0.2) Sodium Level 142 mmol/L (136-145) 139 mmol/L (136-145) Potassium Level 3.5 mmol/L (3.5-5.1) 3.7 mmol/L (3.5-5.1) Chloride Level 104 mmol/L (98-107) 102 mmol/L (98-107) Carbon Dioxide Level 30 mmol/L (21-32) 30 mmol/L (21-32) Anion Gap 8 (6-14) 7 (6-14) Blood Urea Nitrogen 13 mg/dL (8-26) 12 mg/dL (8-26) Creatinine 0.8 mg/dL (0.7-1.3) 0.7 mg/dL (0.7-1.3) Estimated GFR (Cockcroft-Gault) 119.3 139.2 Glucose Level 104 mg/dL (70-99) 72 mg/dL (70-99) Calcium Level 9.0 mg/dL (8.5-10.1) 9.2 mg/dL (8.5-10.1) Laboratory Tests Test 08/16/16 04:10 White Blood Count 8.5 x10^3/uL (4.0-11.0) Red Blood Count 5.20 x10^6/uL (4.30-5.70) Hemoglobin 14.3 g/dL (13.0-17.5) Hematocrit 43.8 % (39.0-53.0) Mean Corpuscular Volume 84 fL (79-100) Mean Corpuscular Hemoglobin 28 pg (25-35) Mean Corpuscular Hemoglobin Concent 33 g/dL (31-37) Red Cell Distribution Width 16.8 % (11.5-14.5) Platelet Count 225 x10^3/uL (140-400) Neutrophils (%) (Auto) 60 % (31-73) Lymphocytes (%) (Auto) 30 % (24-48) Monocytes (%) (Auto) 10 % (0-9) Eosinophils (%) (Auto) 1 % (0-3) Basophils (%) (Auto) 0 % (0-3) Neutrophils # (Auto) 5.1 x10^3uL (1.8-7.7) Lymphocytes # (Auto) 2.5 x10^3/uL (1.0-4.8) Monocytes # (Auto) 0.8 x10^3/uL (0.0-1.1) Eosinophils # (Auto) 0.0 x10^3/uL (0.0-0.7) Basophils # (Auto) 0.0 x10^3/uL (0.0-0.2) Sodium Level 139 mmol/L (136-145) Potassium Level 3.7 mmol/L (3.5-5.1) Chloride Level 102 mmol/L (98-107) Carbon Dioxide Level 30 mmol/L (21-32) Anion Gap 7 (6-14) Blood Urea Nitrogen 12 mg/dL (8-26) Creatinine 0.7 mg/dL (0.7-1.3) Estimated GFR (Cockcroft-Gault) 139.2 Glucose Level 72 mg/dL (70-99) Calcium Level 9.2 mg/dL (8.5-10.1) Medications Active Scripts Medications Dose Route/Sig Max Daily Dose Days Date Category Duoneb 0.5-3(2.5) Mg/3 Ml (Albuterol/Ipratropium) 3 Ml Ampul.neb 3 Ml NEB RTQID 04/02/16 Rx Montelukast Sodium Tablet (Montelukast Sodium) 10 Mg Tablet 5 Mg PO HS 04/02/16 Rx Spiriva (Tiotropium [place]) 18 Mcg Cap.w.dev 2 Inh IH DAILY 04/02/16 Rx Hydrochlorothiazide Tablet (Hydrochlorothiazide) 25 Mg Tablet 1 Tab PO DAILY 04/01/16 Reported Bupropion HCl ER (Bupropion HCl) 200 Mg Tablet.er 150 Mg PO BID 04/01/16 Reported Aspir 81 (Aspirin) 81 Mg Tablet.dr 1 Tab PO DAILY 04/01/16 Reported Clonazepam 0.5 Mg Tablet 1 Tab PO PRN TID PRN 04/01/16 Reported Pravastatin Sodium 40 Mg Tablet 1 Tab PO QHS 04/01/16 Reported Advair 250-50 Diskus (Fluticasone/Salmeterol) 1 Each Disk.w.dev 1 Puff IH BID 03/24/16 Rx Xanax (Alprazolam) 0.5 Mg Tablet 1 Tab PO DAILY 03/24/16 Rx Duoneb 0.5-3(2.5) Mg/3 Ml (Albuterol/Ipratropium) 3 Ml Ampul.neb 3 Ml NEB Q4HRS PRN 03/20/16 Reported Trazodone Hcl 100 Mg Tablet 1 Tab PO QHS 01/26/16 Reported Comments echo reviewed, The left ventricular systolic function is normal and the ejection fraction is within normal range. The Ejection Fraction is 55-60%. There is normal LV segmental wall motion. Impression . IMPRESSION: 1. Gblgt-ef-wwuploo respiratory failure, multifactorial in etiology including acute exacerbation of chronic obstructive pulmonary disease, acute bronchitis, 2. Acute exacerbation of chronic obstructive pulmonary disease. 3. Acute bronchitis. 4. Tobacco habituation. 5. Anxiety. 6. allergic rhinitis Plan . 1. I had a long discussion with him regarding the smoking cessation. I have advised him to stop smoking forever. 2. Titrate FiO2 to keep O2 saturation 92%. 3. change Prednisone to 30 mg daily w taper by 10 mg q3d. 4. Singulair. 5. Bronchodilator. 6. Inhaled corticosteroid. 7. cont abx for total of 7 days 8. Lovenox for DVT prophylaxis. 9. Protonix for stress ulcer prophylaxis. 10. Monitor respiratory status very closely. 11. echocardiogram reviewed. 12. singmelida ok with [facility] CHERY CHAIDEZ MD August 16, 2016 11:50
[2016-08-16] MEDS: clonazePAM 0.5 MG TABLET PO PRN (12:01)
== END 2016-08-16 14:30 | disposition home or self-care (01) | DRG 189 ==
LOC: ER 13:58 → 5 SOUTH 15:17
PROVIDERS: ADMIT Internal Medicine; ATTEND Internal Medicine
DX: J96.21 Acute and chronic respiratory failure with hypoxia (principal); J44.0 Chronic obstructive pulmonary disease with (acute) lower respiratory infection; J44.1 Chronic obstructive pulmonary disease with (acute) exacerbation; R65.10 Systemic inflammatory response syndrome (SIRS) of non-infectious origin without acute organ dysfunction; J20.9 Acute bronchitis, unspecified; J96.22 Acute and chronic respiratory failure with hypercapnia; E66.9 Obesity, unspecified; E78.5 Hyperlipidemia, unspecified; F17.210 Nicotine dependence, cigarettes, uncomplicated; F41.9 Anxiety disorder, unspecified; I11.0 Hypertensive heart disease with heart failure; I50.9 Heart failure, unspecified; J30.9 Allergic rhinitis, unspecified; M19.90 Unspecified osteoarthritis, unspecified site; F32.9 Major depressive disorder, single episode, unspecified; K21.9 Gastro-esophageal reflux disease without esophagitis; Z82.49 Family history of ischemic heart disease and other diseases of the circulatory system; Z99.3 Dependence on wheelchair; Z99.81 Dependence on supplemental oxygen; Z68.29 Body mass index [BMI] 29.0-29.9, adult; Z91.040 Latex allergy status; Z71.6 Tobacco abuse counseling; Z79.899 Other long term (current) drug therapy
CPT/HCPCS: 36415; 71010; 80048; 80053; 80061; 81001; 82550; 83605; 83690; 83735; 83880; 84484; 85027; 85610; 85730; 87641; 90732; 93005; 93306; 94250; 94640; 94760; G0480; G0481; J0696; J1650; J2270; J2405; J2930; J7512; J7620

== ENCOUNTER 2016-11-20 20:22 | Inpatient (IN) | payer OTHER ==
[~2016-11-20] VITALS: Ht 172.7 cm; Wt 94.6 kg
[2016-11-20] MEDS ORDERED: ALBUTEROL SULFATE 2.5 MG/3 ML NEBU. ONE (20:25)
[2016-11-20] MEDS ORDERED: ALBUTEROL SULFATE 2.5 MG/3 ML NEBU. CONT NEB ONE (20:45)
[2016-11-20] MEDS ORDERED: methylPREDNISolone SOD SUCC PF 125 MG/2 ML VIAL. IV ONE (20:45)
[2016-11-20 20:48] LABS: BASO # 0.1 x10^3/uL (0.0-0.2); BASO % 1 % (0-3); EOS % 1 % (0-3); HEMATOCRIT 41.1 % (39.0-53.0); HEMOGLOBIN 13.7 g/dL (13.0-17.5); LYMPH # 2.8 x10^3/uL (1.0-4.8); LYMPH % 41 % (24-48); MEAN CORPUSCULAR HEMOGLOBIN 28 pg (25-35); MEAN CORPUSCULAR HGB CONC 33 g/dL (31-37); MEAN CORPUSCULAR VOLUME 85 fL (79-100); MONO % 10 % (0-9); NEUT % 47 % (31-73); PLATELET COUNT 237 x10^3/uL (140-400); RED BLOOD COUNT 4.83 x10^6/uL (4.30-5.70); RED CELL DISTRIBUTION WIDTH 14.1 % (11.5-14.5); WHITE BLOOD COUNT 6.9 x10^3/uL (4.0-11.0)
[2016-11-20 21:04] LABS: CALCIUM 9.1 mg/dL (8.5-10.1); CREATININE 0.8 mg/dL (0.7-1.3); GFR 119.3; POTASSIUM 3.8 mmol/L (3.5-5.1)
[2016-11-20 21:10] LABS: ALBUMIN 3.6 g/dL (3.4-5.0); ALBUMIN/GLOBULIN RATIO 0.8 (1.0-1.7); TOTAL BILIRUBIN 0.8 mg/dL (0.2-1.0); TOTAL PROTEIN 8.1 g/dL (6.4-8.2)
--- NOTE | 2016-11-20 22:30 | PHYS DOC ---
Past Medical History Past Medical History: Anxiety, CHF, COPD, Depression, Hypertension, Hepatitis Past Surgical History: Other Additional Past Surgical Histo: Hari DIMAS LEG Alcohol Use: None Drug Use: None Adult General Chief Complaint Chief Complaint: SHORTNESS OF BREATH HPI HPI Patient is a 61 year old gentleman with history significant for COPD, asthma, bronchitis who presents here today secondary to shortness of breath with a nonproductive cough times last 1-2 days. Patient reports that he ran out of his Spiriva. He thinks that that's the exacerbating cause. Patient has any recent fevers shakes chills nausea vomiting or diarrhea. Patient called EMS this evening secondary to his dyspnea. Upon EMS arrival the patient was extremely tachypneic. The patient did receive 2 Combivent treatments by EMS. Upon his arrival to the ER the patient was still tachypneic complaining of shortness of breath. The patient reports he is usually on 3 L of O2 by nasal cannula however he has had to increase it to 3 L over the last day or 2. Patient reports no other past medical history. Patient reports he had a hernia repair in the past. Patient reports she's to be a heavy smoker however he's recently quit. Patient denies any alcohol or drugs. Patient's physical exam was significant for severe tachypnea upon arrival to the ER. Patient had diminished breath sounds throughout. Patient was able speak in full sentences. Review of systems: Constitutional: Denies fever or chills Eyes: Denies change in visual acuity, redness, or eye pain HENT: Denies nasal congestion or sore throat All other review systems are negative except as documented in the history of present illness portion. Physical exam: Constitutional: Well developed, well nourished, no acute distress, non-toxic appearance. HENT: Normocephalic, atraumatic, bilateral external ears normal, nose normal. Eyes: EOMI, conjunctiva normal, no discharge. Neck: Normal range of motion, no tenderness, supple, no stridor. Cardiovascular:Heart rate regular rhythm Lungs & Thorax: Diminished breath sounds throughout, diffuse inspiratory and expiratory wheezing. Abdomen: Bowel sounds normal, soft, no tenderness, no masses, no pulsatile masses. Skin: Warm, dry, no erythema, no rash. Back: No tenderness, no CVA tenderness. Extremities: No tenderness, no cyanosis, no clubbing, ROM intact, no edema. Neurologic: Alert and oriented X 3, normal motor function, normal sensory function, no focal deficits noted. Psychologic: Affect normal, judgement normal, mood normal. Chest x-ray: No infiltrates or effusions. No pneumothorax. Normal heart size. Interpreted by ER Xi EKG: Sinus tach with nonspecific ST-T wave abnormalities no evidence of ST elevation CO interpreted by ER Xi Assessment and plan This is a 61-year-old gentleman who presents to the ER today secondary to respiratory failure with hypoxia per EMS. Patient's pulse ox was running in the 80s upon arrival to his home. Patient was placed on a nonrebreather was given multiple neb treatments. Patient in the ER was still extremity tachypneic. Patient was put on a continuous albuterol neb treatment of 10 MLS of albuterol. Patient is given IV Solu-Medrol. Patient was reevaluated multiple times throughout his O2 sat treatment. Patient is significantly improved. Patient currently is on 3 L O2 feeling much better. Patient's lungs still have some extra elina wheezing however much better than when he first arrived. Patient still tachypneic. Patient will need to be admitted to the hospital for further observation, aggressive neb treatments, IV steroids, and oxygen. I discussed the case was now. They're in agreement with the plan to admit the patient at this time. Critical care time of 35 minutes reutilized and treatment and management of this patient's respiratory distress, tachypnea, hypoxia, COPD exacerbation. Current Medications Current Medications Current Medications Medications (Trade) Dose Ordered Sig/Isabel Start Time Stop Time Status Last Admin Dose Admin Albuterol Sulfate (Ventolin Neb Soln) 10 mg 1X ONCE 11/20/16 20:45 11/20/16 20:46 DC 11/20/16 20:33 10 MG Methylprednisolone Sodium Succinate (SOLU-Medrol 125MG VIAL) 125 mg 1X ONCE 11/20/16 20:45 11/20/16 20:46 DC 11/20/16 20:53 125 MG Allergies Allergies Allergies Coded Allergies Type Severity Reaction Last Updated Verified latex Allergy Intermediate 08/13/16 Yes I S O L A T I O N *CONTACT* Allergy Unknown 03/31/16 Yes Current Patient Data Vital Signs Vital Signs Date Time Temp Pulse Resp B/P (MAP) Pulse Ox O2 Delivery O2 Flow Rate FiO2 11/20/16 21:56 96 20 127/75 (92) 96 Nasal Cannula 3.0 11/20/16 20:25 97.0 97.0 Lab Values Laboratory Tests Test 11/20/16 20:30 White Blood Count 6.9 x10^3/uL (4.0-11.0) Red Blood Count 4.83 x10^6/uL (4.30-5.70) Hemoglobin 13.7 g/dL (13.0-17.5) Hematocrit 41.1 % (39.0-53.0) Mean Corpuscular Volume 85 fL (79-100) Mean Corpuscular Hemoglobin 28 pg (25-35) Mean Corpuscular Hemoglobin Concent 33 g/dL (31-37) Red Cell Distribution Width 14.1 % (11.5-14.5) Platelet Count 237 x10^3/uL (140-400) Neutrophils (%) (Auto) 47 % (31-73) Lymphocytes (%) (Auto) 41 % (24-48) Monocytes (%) (Auto) 10 % (0-9) H Eosinophils (%) (Auto) 1 % (0-3) Basophils (%) (Auto) 1 % (0-3) Neutrophils # (Auto) 3.2 x10^3uL (1.8-7.7) Lymphocytes # (Auto) 2.8 x10^3/uL (1.0-4.8) Monocytes # (Auto) 0.7 x10^3/uL (0.0-1.1) Eosinophils # (Auto) 0.1 x10^3/uL (0.0-0.7) Basophils # (Auto) 0.1 x10^3/uL (0.0-0.2) Sodium Level 142 mmol/L (136-145) Potassium Level 3.8 mmol/L (3.5-5.1) Chloride Level 101 mmol/L (98-107) Carbon Dioxide Level 32 mmol/L (21-32) Anion Gap 9 (6-14) Blood Urea Nitrogen 9 mg/dL (8-26) Creatinine 0.8 mg/dL (0.7-1.3) Estimated GFR (Cockcroft-Gault) 119.3 BUN/Creatinine Ratio 11 (6-20) Glucose Level 97 mg/dL (70-99) Calcium Level 9.1 mg/dL (8.5-10.1) Total Bilirubin 0.8 mg/dL (0.2-1.0) Aspartate Amino Transferase (AST) 51 U/L (15-37) H Alanine Aminotransferase (ALT) 64 U/L (16-63) H Alkaline Phosphatase 98 U/L (46-116) Troponin I Quantitative < 0.017 ng/mL (0.000-0.055) LA-Hbb-S-Type Natriuretic Peptide 19 pg/mL (0-124) Total Protein 8.1 g/dL (6.4-8.2) Albumin 3.6 g/dL (3.4-5.0) Albumin/Globulin Ratio 0.8 (1.0-1.7) L Laboratory Tests 11/20/16 20:30 Laboratory Tests 11/20/16 20:30 EKG EKG [] Radiology/Procedures Radiology/Procedures [] Course & Med Decision Making Course & Med Decision Making Pertinent Labs and Imaging studies reviewed. (See chart for details) [] Dragon Disclaimer Dragon Disclaimer This electronic medical record was generated, in whole or in part, using a voice recognition dictation system. Departure Departure Impression: Primary Impression: COPD (chronic obstructive pulmonary disease) Additional Impressions: COPD with acute exacerbation Respiratory failure Respiratory failure with hypoxia Disposition: 09 ADMITTED INPATIENT Admitting Physician: Other (reusch) Condition: GUARDED Referrals: UNKNOWN PCP NAME (PCP) Problem Qualifiers ALESSIO TOVAR MD Nov 20, 2016 22:30
[2016-11-20] MEDS ORDERED: VENTOLIN HFA18 GM INH (23:42)
[2016-11-20] MEDS ORDERED: IPRA4AER IH (23:42)
[2016-11-20] MEDS ORDERED: FLUT9.9S NS (23:42)
[2016-11-20] MEDS ORDERED: ALPR0.5T PO (23:42)
[2016-11-20] MEDS ORDERED: clonazePAM 0.5 MG TABLET PO PRN (23:45)
[2016-11-21] VITALS (7 sets, daily range): BP systolic 100–154; BP diastolic 56–96
[2016-11-21] MEDS ORDERED: NON FORMULARY ITEM (Albuterol Sulfate (Ventolin Hfa Inhaler) 2 PUFF) INH SCH
[2016-11-21] MEDS: ACETAMINOPHEN 325 MG TABLET. PO PRN ×3 (00:02→14:17)
[2016-11-21] MEDS: ALBUTEROL SULFATE 2.5 MG/3 ML NEBU. NEB PRN ×2 (00:25→05:46)
[2016-11-21] MEDS ORDERED: PNEUMOCOCCAL VAX SCREEN BY RX. MC ONE (01:00)
--- NOTE | 2016-11-21 03:54 | ACF ---
Admission Forms Criteria COPD Clinical Indications for Admission to Inpatient Care ([place]/check or initial the applicable condition/criteria) Admission is indicated for ANY ONE of the following (1)(2)(3): [ X]I. Acute exacerbation by high-risk comorbidity(e.g., pneumonia, dysrhythmia, heart failure, pleural effusion, pneumothorax) or severe underlying COPD (eg, baseline FEV1 less than 50% predicted) [ ]II. Inpatient admission required[A] rather than observation care (see Chronic Obstructive Pulmonary Disease: Observation Care) because of ANY ONE of the following: [ ]a) New or pre-existing signs or symptoms of COPD (eg, dyspnea or Tachypnea at rest or with minimal activity) that persist despite outpatient and observation care treatment [ ]b) New-onset hypoxemia (room air SaO2 less than 90%, PO2 less than 60 mm Hg (8.0 kPa)) that persists despite outpatient and observation care treatment [ ]c) Worsening of pre-existing hypoxemia (eg, new or increased requirement for supplemental oxygen to maintain oxygenation at baseline level) that persists despite outpatient and observation care treatment, with oxygen treatment needs performable only in acute inpatient setting [ ]d) Hypercarbia (PCO2 greater than 40 mm Hg (5.3 kPa))-induced respiratory acidosis (pH less than 7.35) that persists despite outpatient and observation care treatment [ ]e) Supplemental oxygen or respiratory treatments for over 24 hours that are performable only in acute inpatient setting [ ]f) Chest tube placement with active evacuation (e.g., suction, drainage) (6) [ ]g) Other condition, treatment or monitoring requiring inpatient admission [ ]III. Planned invasive surgical or diagnostic procedures requiring acute- care hospitalization [ ]IV. Acute respiratory failure (e.g., uncompensated hypercarbia, severe hypoxemia) [ ]V. Severe comorbid condition (e.g., severe steroid myopathy, acute vertebral fracture) that has acutely worsened pulmonary function [ ]. Altered mental status that is severe or persistent Extended stay beyond goal length of stay may be needed for (29)(30)(31)(32)(33) : [ ]a ) Respiratory Failure. [ ]b) Severe or persisting hypoxemia or hypercarbia [ ]c) Severe or persistent dyspnea [ ]d) Clinically significant Comorbidities (e.g. chronic heart failure, atrial fibrillation with rapid response, pneumonia)(36) [ ]e) Malnutrition (33) The original [facility] content created by [facility] has been revised. The portions of the content which have been revised are identified through the use of italic text, and [facility] has neither reviewed nor approved the modified material. All other unmodified content is copyright [facility]. Please see references footnoted in the original [facility] edition 2015 Admission Criteria Met?: Yes CORDELL MARKHAM Nov 21, 2016 03:54
--- NOTE | 2016-11-21 07:11 | EKG ---
[facility] [address] [place] [address] Test Date: 2016-11-20 Test Time: 20:28:03 Pat Name: BRANDY JUNIOR Department: Room: [facility] Gender: M Escrow Manager: : 1955 Requested By: ALESSIO TOVAR Order Number: [id number] Reading MD: Nerissa Velazquez Measurements Intervals [place] Rate: 102 P: 75 CA: 158 QRS: -10 QRSD: 76 T: 28 QT: 332 QTc: 437 Interpretive Statements SINUS TACHYCARDIA VENTRICULAR PREMATURE COMPLEX(ES) LEFTWARD AXIS Electronically Signed On 11-21-2016 20:12:13 CDT by Nerissa Velazquez
--- NOTE | 2016-11-21 08:09 | RAD ---
Indication: Short of air for 2 days Technique: Upright portable chest radiograph was obtained. Comparison is from August 12, 2016. Findings: The lungs are clear. The cardiopulmonary silhouette is within normal limits. There is mild osteoarthritis at both AC joints. Leads overlie the patient. Impression: No active pulmonary disease.
[2016-11-21] MEDS: hydroCHLOROthiazide 25 MG TABLET PO SCH (08:22)
[2016-11-21] MEDS: FLUTICASONE 50MCG/NASAL SPRAY 16GM BOTTLE. NS SCH (08:22)
[2016-11-21] MEDS: ALPRAZolam 0.5 MG TABLET PO SCH ×3 (08:22→20:44)
[2016-11-21] MEDS: buPROPion SR 150 MG TABLET.SA PO SCH ×2 (08:22→20:44)
[2016-11-21] MEDS: ASPIRIN ENTERIC COATED 81 MG TABLET.DR. PO SCH (08:22)
[2016-11-21] MEDS: IPRATRPIUM/ALBUTEROL 0.5/2.5MG 3 ML NEBU. NEB SCH ×4 (08:29→21:16)
[2016-11-21] MEDS: BUDESONIDE 0.5 MG/2 ML NEBU. NEB SCH ×2 (08:29→21:17)
[2016-11-21] MEDS ORDERED: NON FORMULARY ITEM (Tiotropium Bromide (Spiriva) 2 INH) IH SCH (09:00)
[2016-11-21] MEDS ORDERED: NON FORMULARY ITEM (Ipratropium/Albuterol Sulfate (Combivent Respimat Inhal) 2 INH) IH SCH (09:00)
[2016-11-21] MEDS: predniSONE 20 MG TABLET PO SCH (11:28)
[2016-11-21] MEDS: PANTOPRAZOLE 40 MG TABLET.DR. PO SCH (11:28)
[2016-11-21 12:02] LABS: BASO % 0 % (0-3); EOS % 0 % (0-3); HEMOGLOBIN 13.2 g/dL (13.0-17.5); LYMPH # 1.9 x10^3/uL (1.0-4.8); LYMPH % 21 % (24-48); MEAN CORPUSCULAR HEMOGLOBIN 28 pg (25-35); MEAN CORPUSCULAR HGB CONC 32 g/dL (31-37); MEAN CORPUSCULAR VOLUME 86 fL (79-100); MONO % 7 % (0-9); NEUT % 72 % (31-73); PLATELET COUNT 224 x10^3/uL (140-400); RED BLOOD COUNT 4.76 x10^6/uL (4.30-5.70); RED CELL DISTRIBUTION WIDTH 14.2 % (11.5-14.5); WHITE BLOOD COUNT 9.4 x10^3/uL (4.0-11.0)
[2016-11-21 12:16] LABS: CALCIUM 9.2 mg/dL (8.5-10.1); CREATININE 0.8 mg/dL (0.7-1.3); GFR 119.3; POTASSIUM 3.8 mmol/L (3.5-5.1)
--- NOTE | 2016-11-21 12:52 | HP ---
ADMIT DATE: 11/21/2016 CHIEF COMPLAINT: Hypoxic respiratory failure, acute. HISTORY OF PRESENT ILLNESS: The patient is a 61-year-old gentleman with O2 dependent COPD, who presented to the Emergency Room with worsening shortness of breath. He relates that this started about 2 days ago, got progressively worse with chest congestion. He denied any productive cough but affirmed stuffy nose with postnasal drip. He denies any fevers or chills. Denies any chest pain. PAST MEDICAL HISTORY: O2 dependent COPD, GERD, hepatitis, osteoarthritis, anxiety, depression. FAMILY HISTORY: The patient is unaware of any heart or lung disease in his family. SOCIAL HISTORY: Lives by himself. Smokes less than a pack, although states he quit. Denies any other drugs. ALLERGIES: LATEX. MEDICATIONS: MAR reconciled with home medications. REVIEW OF SYSTEMS: Only positive for respiratory symptoms as per HPI. He denies any other issues in rest of organ system review. PHYSICAL EXAMINATION: VITAL SIGNS: From today show blood pressure of 112/86, respiratory rate at 18, pulse rate at 79. He is afebrile. GENERAL: This is a well-nourished 61-year-old -[place] gentleman, alert and oriented, no acute distress. CHEST: Clear with distant breath sounds. CARDIOVASCULAR: Heart has regular rate and rhythm without any murmurs. ABDOMEN: Has positive bowel sounds. EXTREMITIES: Show no edema. SKIN: Warm, soft and dry. NEUROLOGIC: He appears grossly intact. LABORATORY DATA: CBC with a WBC of 6.9, hemoglobin 13.7, platelets of 237. Chemistries with a BUN and creatinine of 9 and 0.8, normal electrolytes. Transaminases of 51 and 64, total bilirubin normal, albumin at 3.6. IMAGING STUDIES: Chest x-ray obtained in the Emergency Room shows no active pulmonary disease. ASSESSMENT AND PLAN: The patient is a 61-year-old gentleman with O2 dependent chronic obstructive pulmonary disease with exacerbation. He was started on steroids with good resolution of his symptoms. We will taper him fairly quickly. The patient relates that he had been evaluated with a sleep study and had been determined to need BiPAP. He does know the setting of 14 and 8, but does not have the machine available. We will obtain a Pulmonary consult to help him with this endeavor. We will continue all his other medications including Xanax t.i.d. for anxiety. For prophylaxis, he will be started on Lovenox and Protonix. LEA FISCHER MD DR: ROMARIO/cristian JOB#: [id number] / [id number] RENETTA
[2016-11-21] MEDS: ENOXAPARIN 40 MG/0.4 ML SYRINGE. SQ SCH (15:51)
[2016-11-21] MEDS: MONTELUKAST SODIUM 10 MG TABLET. PO SCH (20:44)
[2016-11-21] MEDS: traZODone 100 MG TABLET. PO SCH (20:44)
[2016-11-21] MEDS: ATORVASTATIN CALCIUM 10 MG TABLET. PO SCH (20:44)
[2016-11-22] MEDS: ALBUTEROL SULFATE 2.5 MG/3 ML NEBU. NEB PRN (02:31)
[2016-11-22 03:00] VITALS: BP 109/82
[2016-11-22 07:00] VITALS: BP 105/78
[2016-11-22] MEDS: IPRATRPIUM/ALBUTEROL 0.5/2.5MG 3 ML NEBU. NEB SCH ×4 (07:04→19:16)
[2016-11-22] MEDS: BUDESONIDE 0.5 MG/2 ML NEBU. NEB SCH ×2 (07:05→19:16)
[2016-11-22] MEDS: PANTOPRAZOLE 40 MG TABLET.DR. PO SCH (07:58)
[2016-11-22] MEDS: FLUTICASONE 50MCG/NASAL SPRAY 16GM BOTTLE. NS SCH ×2 (09:00→15:30)
[2016-11-22] MEDS: buPROPion SR 150 MG TABLET.SA PO SCH ×2 (09:13→21:21)
[2016-11-22] MEDS: ASPIRIN ENTERIC COATED 81 MG TABLET.DR. PO SCH (09:13)
[2016-11-22] MEDS: ALPRAZolam 0.5 MG TABLET PO SCH ×3 (09:13→21:21)
[2016-11-22] MEDS: hydroCHLOROthiazide 25 MG TABLET PO SCH (09:13)
[2016-11-22] MEDS: predniSONE 20 MG TABLET PO SCH (09:13)
[2016-11-22 11:00] VITALS: BP 128/90
--- NOTE | 2016-11-22 11:47 | PDOC ---
Provider Note Provider Note dictated CHERY CHAIDEZ MD Nov 22, 2016 11:47
--- NOTE | 2016-11-22 12:39 | CONS ---
DATE OF CONSULTATION: PULMONARY CONSULTATION ATTENDING PHYSICIAN: Bella Chilel M.D. REASON FOR CONSULTATION: Dyspnea. HISTORY OF PRESENT ILLNESS: The patient is a 61-year-old male who has history of 40 years of tobacco use and down to 3 cigarettes a day. He is on oxygen at 3 liters on a 24-hour basis. He presented to the Emergency Room with increasing shortness of breath and wheezing. He had a mild cough which was nonproductive. No fever, no chills. No chest pains, no headaches. No nausea, vomiting or diarrhea. His chest x-ray did not reveal any definite infiltrates. He says he has run out of Spiriva recently and he used to take Advair as well, which he is not using anymore. The patient states he had a sleep study when he was on the [place] side. He said he was given CPAP, but due to ineffective use, his insurance company took away the CPAP. Since he is on the [facility], he does not qualify for another CPAP machine. PAST MEDICAL HISTORY: History of oxygen-dependent COPD, history of GERD, history of hepatitis, osteoarthritis, anxiety and depression. PAST SURGICAL HISTORY: No recent surgeries. FAMILY HISTORY: Noncontributory to lungs. SOCIAL HISTORY: He lives by himself. He is down to 3 cigarettes a day, has been smoking for 44 years. ALLERGIES: LATEX. MEDICATIONS: His current medications were reviewed as listed in the MRAD, including bronchodilators. REVIEW OF SYSTEMS: Twelve-point systems obtained. Pertinent positives discussed in the history of present illness, otherwise noncontributory. All systems that were negative were reviewed as well. PHYSICAL EXAMINATION: VITAL SIGNS: On examination, his vital signs were reviewed. Pulse ox 98% on 3 liters. HEENT: Sclerae nonicteric. NECK: Supple. LUNGS: With occasional faint wheezing anteriorly. CARDIOVASCULAR EXAMINATION: Regular rate and rhythm. ABDOMEN: Soft, nontender. EXTREMITIES: With no pitting edema. LABORATORY DATA: Labs are reviewed. BUN and creatinine normal. White cell count 9.4, hemoglobin 13.0 and platelets are 224,000. IMPRESSION: 1. Dyspnea secondary to acute exacerbation of chronic obstructive pulmonary disease in a patient who has 44 years of tobacco use and has ongoing tobaccoism down to 3 cigarettes a day. 2. Chronic hypoxic respiratory failure. He is on home oxygen at 3 liters. 3. History of sleep apnea diagnosed in [place]. He had a CPAP, but due to noncompliance, CPAP machine was taken away. Now, he is on the [place] side and is not eligible for a CPAP machine. RECOMMENDATIONS: 1. Smoking cessation counseling provided. 2. Continue with present oxygen. 3. Continue present bronchodilators. 4. I have advised him that if he is using DuoNebs, he should not be using Spiriva. He can use Combivent inhaler at home with p.r.n. ProAir. I would also place him back on Advair at discharge; he was taking it at home. 5. Weight loss is advised. Unfortunately, he would not be covered for CPAP due to [place] Medicaid. 6. We will follow along with you. CHERY CHAIDEZ MD DR: LEONIDAS/cristian JOB#: [id number] / [id number]
[2016-11-22] MEDS: ENOXAPARIN 40 MG/0.4 ML SYRINGE. SQ SCH (14:44)
[2016-11-22 15:00] VITALS: BP 106/88
--- NOTE | 2016-11-22 15:12 | PDOC ---
PROGRESS NOTES Chief Complaint Chief Complaint acute on chronic hypoxic resp failure with copd copd exacerbation MELISSA on home bipap, but not recently with insurance issues O2 dependent COPD, GERD, hepatitis? osteoarthritis, anxiety, depression. diarrhea tobaccoism post nasal drip plan: fu with pulm on pulmicort duoneb, albuterol prn prednisone dvt, gi ppx add flonase check cdiff on NC 3L, keep SAT >90% educated dc smoking History of Present Illness History of Present Illness still sob on NC 3 l, home o2 3L required his home meds and demands pharmacy to give his meds as what he is doing at home c/p post nasal drip required bipap, but his new [place] insurance wont cover for outpt + diarrhea Vitals Vitals Vital Signs Date Time Temp Pulse Resp B/P (MAP) Pulse Ox O2 Delivery O2 Flow Rate FiO2 11/22/16 12:31 99 Nasal Cannula 3.0 11/22/16 11:00 97.9 84 18 128/90 (103) 97.9 Physical Exam General: Alert, Oriented X3, Cooperative Heart: Regular rate, Normal S1 Lungs: Wheezing (bl mild wheezing with tightness) Abdomen: Normal bowel sounds, Soft Extremities: No clubbing, No cyanosis Skin: No rashes Review of Systems Review of Systems no fever, chills chest pain Assessment and Plan Assessmemt and Plan Problems Medical Problems: (1) COPD (chronic obstructive pulmonary disease) Status: Acute (2) COPD with acute exacerbation Status: Acute (3) Respiratory failure Status: Acute (4) Respiratory failure with hypoxia Status: Acute Problems: Comment Review of Relevant I have reviewed the following items kyleigh (where applicable) has been applied. Labs Laboratory Tests Test 11/20/16 20:30 11/21/16 10:00 11/21/16 11:50 White Blood Count 6.9 x10^3/uL (4.0-11.0) 9.4 x10^3/uL (4.0-11.0) Red Blood Count 4.83 x10^6/uL (4.30-5.70) 4.76 x10^6/uL (4.30-5.70) Hemoglobin 13.7 g/dL (13.0-17.5) 13.2 g/dL (13.0-17.5) Hematocrit 41.1 % (39.0-53.0) 41.0 % (39.0-53.0) Mean Corpuscular Volume 85 fL (79-100) 86 fL (79-100) Mean Corpuscular Hemoglobin 28 pg (25-35) 28 pg (25-35) Mean Corpuscular Hemoglobin Concent 33 g/dL (31-37) 32 g/dL (31-37) Red Cell Distribution Width 14.1 % (11.5-14.5) 14.2 % (11.5-14.5) Platelet Count 237 x10^3/uL (140-400) 224 x10^3/uL (140-400) Neutrophils (%) (Auto) 47 % (31-73) 72 % (31-73) Lymphocytes (%) (Auto) 41 % (24-48) 21 % (24-48) Monocytes (%) (Auto) 10 % (0-9) 7 % (0-9) Eosinophils (%) (Auto) 1 % (0-3) 0 % (0-3) Basophils (%) (Auto) 1 % (0-3) 0 % (0-3) Neutrophils # (Auto) 3.2 x10^3uL (1.8-7.7) 6.8 x10^3uL (1.8-7.7) Lymphocytes # (Auto) 2.8 x10^3/uL (1.0-4.8) 1.9 x10^3/uL (1.0-4.8) Monocytes # (Auto) 0.7 x10^3/uL (0.0-1.1) 0.6 x10^3/uL (0.0-1.1) Eosinophils # (Auto) 0.1 x10^3/uL (0.0-0.7) 0.0 x10^3/uL (0.0-0.7) Basophils # (Auto) 0.1 x10^3/uL (0.0-0.2) 0.0 x10^3/uL (0.0-0.2) Sodium Level 142 mmol/L (136-145) 140 mmol/L (136-145) Potassium Level 3.8 mmol/L (3.5-5.1) 3.8 mmol/L (3.5-5.1) Chloride Level 101 mmol/L (98-107) 101 mmol/L (98-107) Carbon Dioxide Level 32 mmol/L (21-32) 31 mmol/L (21-32) Anion Gap 9 (6-14) 8 (6-14) Blood Urea Nitrogen 9 mg/dL (8-26) 11 mg/dL (8-26) Creatinine 0.8 mg/dL (0.7-1.3) 0.8 mg/dL (0.7-1.3) Estimated GFR (Cockcroft-Gault) 119.3 119.3 BUN/Creatinine Ratio 11 (6-20) Glucose Level 97 mg/dL (70-99) 127 mg/dL (70-99) Calcium Level 9.1 mg/dL (8.5-10.1) 9.2 mg/dL (8.5-10.1) Total Bilirubin 0.8 mg/dL (0.2-1.0) Aspartate Amino Transf (AST/SGOT) 51 U/L (15-37) Alanine Aminotransferase (ALT/SGPT) 64 U/L (16-63) Alkaline Phosphatase 98 U/L (46-116) Troponin I Quantitative < 0.017 ng/mL (0.000-0.055) PD-Vqq-A-Type Natriuretic Peptide 19 pg/mL (0-124) Total Protein 8.1 g/dL (6.4-8.2) Albumin 3.6 g/dL (3.4-5.0) Albumin/Globulin Ratio 0.8 (1.0-1.7) Nasal Screen MRSA (PCR) Positive (Negative) Medications Current Medications Albuterol Sulfate (Ventolin Neb Soln) 2.5 mg STK-MED ONCE .ROUTE ; Start at 20:25; Stop 11/20/16 at 20:26; Status DC Methylprednisolone Sodium Succinate (SOLU-Medrol 125MG VIAL) 125 mg 1X ONCE IV Last administered on 11/20/16t 20:53; Start 11/20/16 at 20:45; Stop 11/20/16 at 20:46; Status DC Albuterol Sulfate (Ventolin Neb Soln) 10 mg 1X ONCE CONT NEB Last administered on 11/20/16 20:33; Start 11/20/16 at 20:45; Stop 11/20/16 at 20:46 ; Status DC Alprazolam (Xanax) 0.5 mg TID PO Last administered on 11/22/16 14:44; Start at 09:00 Aspirin (Ecotrin) 81 mg DAILY PO Last administered on 11/22/16 09:13; Start at 09:00 Clonazepam (KlonoPIN) 0.5 mg PRN TID PRN PO ANXIETY / AGITATION Last administered on 11/21/16 00:02; Start 11/20/16 at 23:45 Hydrochlorothiazide (Hydrodiuril) 25 mg DAILY PO Last administered on 09:13; Start 11/21/16 at 09:00 Albuterol Sulfate (Ventolin Neb Soln) 2.5 mg PRN Q4HRS PRN NEB SHORTNESS OF BREATH Last administered on 11/22/16 02:31; Start 11/20/16 at 23:45 Albuterol/ Ipratropium (Duoneb) 3 ml RTQID NEB Last administered on 11/22/16 12:31; Start 11/21/16 at 08:00 Montelukast Sodium (Singulair) 5 mg HS PO Last administered on 11/21/16 20:44 ; Start 11/21/16 at 21:00 Trazodone HCl (Desyrel) 100 mg QHS PO Last administered on 11/21/16 20:44; Start 11/21/16 at 21:00 Non-Formulary Medication 2 puff Q4HRS INH ; Start 11/21/16 at 00:00; Status UNV Bupropion HCl (Wellbutrin Sr) 150 mg BID PO Last administered on 11/22/16 09: 13; Start 11/21/16 at 09:00 Fluticasone Propionate (Flonase) 2 spray DAILY NS Last administered on 09:00; Start 11/21/16 at 09:00 Budesonide (Pulmicort) 0.5 mg RTBID NEB Last administered on 11/22/16 07:05; Start 11/21/16 at 08:00 Non-Formulary Medication 2 inh QID IH ; Start 11/21/16 at 09:00; Status UNV Atorvastatin Calcium (Lipitor) 10 mg QHS PO Last administered on 11/21/16 20: 44; Start 11/21/16 at 21:00 Non-Formulary Medication 2 inh DAILY IH ; Start 11/21/16 at 09:00; Status UNV Acetaminophen (Tylenol) 650 mg PRN Q6HRS PRN PO MILD PAIN / TEMP Last administered on 11/21/16 14:17; Start 11/20/16 at 23:45 Pneumococcal Polyvalent Vaccine (Do NOT chart on this placeholder) 1 each 1X ONCE MC ; Start 11/21/16 at 01:00; Stop 11/21/16 at 01:01; Status UNV Prednisone (Prednisone) 40 mg DAILY PO Last administered on 11/22/16 09:13; Start 11/21/16 at 11:30 Pantoprazole Sodium (Protonix) 40 mg DAILYAC PO Last administered on 11/22/16 07:58; Start 11/21/16 at 11:30 Enoxaparin Sodium (Lovenox 40mg Syringe) 40 mg Q24H SQ Last administered on 14:44; Start 11/21/16 at 16:00 Active Scripts Active Duoneb 0.5-3(2.5) Mg/3 Ml (Albuterol/Ipratropium) 3 Ml Ampul.neb 3 Ml NEB RTQID Montelukast Sodium Tablet (Montelukast Sodium) 10 Mg Tablet 5 Mg PO HS Spiriva (Tiotropium [place]) 18 Mcg Cap.w.dev 2 Inh IH DAILY Advair 250-50 Diskus (Fluticasone/Salmeterol) 1 Each Disk.w.dev 1 Puff IH BID Reported Ventolin Hfa Inhaler (Albuterol Sulfate) 18 Gm Hfa.aer.ad 2 Puff INH Q4HRS Combivent Respimat Inhal (Ipratropium/Albuterol Sulfate) 4 Gm Aer.w.adap 2 Inh IH QID Flonase Allergy Relief (Fluticasone Propionate) 9.9 Ml [place].susp 2 Sprays NS DAILY Xanax (Alprazolam) 0.5 Mg Tablet 1 Tab PO TID Hydrochlorothiazide Tablet (Hydrochlorothiazide) 25 Mg Tablet 1 Tab PO DAILY Bupropion HCl ER (Bupropion HCl) 200 Mg Tablet.er 150 Mg PO BID Aspir 81 (Aspirin) 81 Mg Tablet. 1 Tab PO DAILY Clonazepam 0.5 Mg Tablet 1 Tab PO PRN TID PRN Pravastatin Sodium 40 Mg Tablet 1 Tab PO QHS Duoneb 0.5-3(2.5) Mg/3 Ml (Albuterol/Ipratropium) 3 Ml Ampul.neb 3 Ml NEB Q4HRS PRN Trazodone Hcl 100 Mg Tablet 1 Tab PO QHS Vitals/I & O Vital Sign - Last 24 Hours 11/21/16 11/21/16 11/21/16 11/21/16 16:25 19:00 19:56 20:00 Temp 97.9 97.9 Pulse 86 Resp 20 B/P (MAP) 144/88 (106) Pulse Ox 97 O2 Delivery Nasal Cannula Nasal Cannula Room Air Nasal Cannula O2 Flow Rate 3.0 3.0 11/21/16 11/21/16 11/21/16 11/22/16 21:18 21:18 23:00 02:32 Temp 97.5 97.5 Pulse 75 Resp 20 B/P (MAP) 100/56 (71) Pulse Ox 98 99 O2 Delivery Nasal Cannula Nasal Cannula Nasal Cannula Nasal Cannula O2 Flow Rate 3.0 3.0 3.0 11/22/16 11/22/16 11/22/16 11/22/16 03:00 07:00 07:06 08:12 Temp 97.5 97.7 97.5 97.7 Pulse 95 74 Resp 20 18 B/P (MAP) 109/82 (91) 105/78 (87) Pulse Ox 96 100 98 O2 Delivery Nasal Cannula Nasal Cannula Nasal Cannula O2 Flow Rate 3.0 3.0 11/22/16 11/22/16 11:00 12:31 Temp 97.9 97.9 Pulse 84 Resp 18 B/P (MAP) 128/90 (103) Pulse Ox 100 99 O2 Delivery Nasal Cannula O2 Flow Rate 3.0 Intake and Output 11/21/16 11/21/16 11/22/16 15:00 23:00 07:00 Intake Total 500 ml 480 ml Output Total 280 ml 900 ml Balance 220 ml -420 ml AUGUSTIN MELLO MD Nov 22, 2016 15:12
[2016-11-22 19:00] VITALS: BP 134/86
[2016-11-22] MEDS: traZODone 100 MG TABLET. PO SCH (21:20)
[2016-11-22] MEDS: MONTELUKAST SODIUM 10 MG TABLET. PO SCH (21:21)
[2016-11-22] MEDS: ATORVASTATIN CALCIUM 10 MG TABLET. PO SCH (21:21)
[2016-11-22 23:00] VITALS: BP 123/85
[2016-11-23] MEDS: ALBUTEROL SULFATE 2.5 MG/3 ML NEBU. NEB PRN ×2 (02:42→14:08)
[2016-11-23 05:06] LABS: BASO # 0.1 x10^3/uL (0.0-0.2); BASO % 1 % (0-3); EOS % 0 % (0-3); HEMATOCRIT 38.8 % (39.0-53.0); HEMOGLOBIN 12.7 g/dL (13.0-17.5); LYMPH # 2.4 x10^3/uL (1.0-4.8); LYMPH % 30 % (24-48); MEAN CORPUSCULAR HEMOGLOBIN 28 pg (25-35); MEAN CORPUSCULAR HGB CONC 33 g/dL (31-37); MEAN CORPUSCULAR VOLUME 86 fL (79-100); MONO % 9 % (0-9); NEUT % 59 % (31-73); PLATELET COUNT 202 x10^3/uL (140-400); RED BLOOD COUNT 4.49 x10^6/uL (4.30-5.70); RED CELL DISTRIBUTION WIDTH 14.4 % (11.5-14.5)
[2016-11-23 05:43] LABS: CREATININE 0.7 mg/dL (0.7-1.3); GFR 139.2
[2016-11-23 07:00] VITALS: BP 107/83
[2016-11-23] MEDS: IPRATRPIUM/ALBUTEROL 0.5/2.5MG 3 ML NEBU. NEB SCH ×4 (07:17→19:22)
[2016-11-23] MEDS: BUDESONIDE 0.5 MG/2 ML NEBU. NEB SCH ×2 (07:17→19:23)
[2016-11-23] MEDS: PANTOPRAZOLE 40 MG TABLET.DR. PO SCH (07:41)
[2016-11-23] MEDS: buPROPion SR 150 MG TABLET.SA PO SCH ×2 (08:17→20:23)
[2016-11-23] MEDS: ASPIRIN ENTERIC COATED 81 MG TABLET.DR. PO SCH (08:17)
[2016-11-23] MEDS: hydroCHLOROthiazide 25 MG TABLET PO SCH (08:17)
[2016-11-23] MEDS: ALPRAZolam 0.5 MG TABLET PO SCH ×3 (08:17→20:24)
[2016-11-23] MEDS: predniSONE 20 MG TABLET PO SCH (08:17)
[2016-11-23] MEDS: FLUTICASONE 50MCG/NASAL SPRAY 16GM BOTTLE. NS SCH ×2 (08:18→08:19)
--- NOTE | 2016-11-23 09:29 | PDOC ---
PULMONARY PROGRESS NOTES Subjective c/o constipation no soa Vitals Vital Signs Date Time Temp Pulse Resp B/P (MAP) Pulse Ox O2 Delivery O2 Flow Rate FiO2 11/23/16 07:19 99 Nasal Cannula 3.0 11/23/16 07:00 97.5 97 20 107/83 (91) 97.5 ROS: No Nausea, No Chest Pain General: Alert, No acute distress HEENT: Other Lungs: Clear Cardiovascular: S1, S2 Abdomen: Soft, Non-tender Neuro Exam: Alert Extremities: No Edema Skin: Warm Labs Laboratory Tests Test 11/21/16 10:00 11/21/16 11:50 11/23/16 04:25 Nasal Screen MRSA (PCR) Positive (Negative) White Blood Count 9.4 x10^3/uL (4.0-11.0) 8.0 x10^3/uL (4.0-11.0) Red Blood Count 4.76 x10^6/uL (4.30-5.70) 4.49 x10^6/uL (4.30-5.70) Hemoglobin 13.2 g/dL (13.0-17.5) 12.7 g/dL (13.0-17.5) Hematocrit 41.0 % (39.0-53.0) 38.8 % (39.0-53.0) Mean Corpuscular Volume 86 fL (79-100) 86 fL (79-100) Mean Corpuscular Hemoglobin 28 pg (25-35) 28 pg (25-35) Mean Corpuscular Hemoglobin Concent 32 g/dL (31-37) 33 g/dL (31-37) Red Cell Distribution Width 14.2 % (11.5-14.5) 14.4 % (11.5-14.5) Platelet Count 224 x10^3/uL (140-400) 202 x10^3/uL (140-400) Neutrophils (%) (Auto) 72 % (31-73) 59 % (31-73) Lymphocytes (%) (Auto) 21 % (24-48) 30 % (24-48) Monocytes (%) (Auto) 7 % (0-9) 9 % (0-9) Eosinophils (%) (Auto) 0 % (0-3) 0 % (0-3) Basophils (%) (Auto) 0 % (0-3) 1 % (0-3) Neutrophils # (Auto) 6.8 x10^3uL (1.8-7.7) 4.7 x10^3uL (1.8-7.7) Lymphocytes # (Auto) 1.9 x10^3/uL (1.0-4.8) 2.4 x10^3/uL (1.0-4.8) Monocytes # (Auto) 0.6 x10^3/uL (0.0-1.1) 0.7 x10^3/uL (0.0-1.1) Eosinophils # (Auto) 0.0 x10^3/uL (0.0-0.7) 0.0 x10^3/uL (0.0-0.7) Basophils # (Auto) 0.0 x10^3/uL (0.0-0.2) 0.1 x10^3/uL (0.0-0.2) Sodium Level 140 mmol/L (136-145) 142 mmol/L (136-145) Potassium Level 3.8 mmol/L (3.5-5.1) 4.0 mmol/L (3.5-5.1) Chloride Level 101 mmol/L (98-107) 104 mmol/L (98-107) Carbon Dioxide Level 31 mmol/L (21-32) 32 mmol/L (21-32) Anion Gap 8 (6-14) 6 (6-14) Blood Urea Nitrogen 11 mg/dL (8-26) 13 mg/dL (8-26) Creatinine 0.8 mg/dL (0.7-1.3) 0.7 mg/dL (0.7-1.3) Estimated GFR (Cockcroft-Gault) 119.3 139.2 Glucose Level 127 mg/dL (70-99) 119 mg/dL (70-99) Calcium Level 9.2 mg/dL (8.5-10.1) 9.0 mg/dL (8.5-10.1) Laboratory Tests Test 11/23/16 04:25 White Blood Count 8.0 x10^3/uL (4.0-11.0) Red Blood Count 4.49 x10^6/uL (4.30-5.70) Hemoglobin 12.7 g/dL (13.0-17.5) Hematocrit 38.8 % (39.0-53.0) Mean Corpuscular Volume 86 fL (79-100) Mean Corpuscular Hemoglobin 28 pg (25-35) Mean Corpuscular Hemoglobin Concent 33 g/dL (31-37) Red Cell Distribution Width 14.4 % (11.5-14.5) Platelet Count 202 x10^3/uL (140-400) Neutrophils (%) (Auto) 59 % (31-73) Lymphocytes (%) (Auto) 30 % (24-48) Monocytes (%) (Auto) 9 % (0-9) Eosinophils (%) (Auto) 0 % (0-3) Basophils (%) (Auto) 1 % (0-3) Neutrophils # (Auto) 4.7 x10^3uL (1.8-7.7) Lymphocytes # (Auto) 2.4 x10^3/uL (1.0-4.8) Monocytes # (Auto) 0.7 x10^3/uL (0.0-1.1) Eosinophils # (Auto) 0.0 x10^3/uL (0.0-0.7) Basophils # (Auto) 0.1 x10^3/uL (0.0-0.2) Sodium Level 142 mmol/L (136-145) Potassium Level 4.0 mmol/L (3.5-5.1) Chloride Level 104 mmol/L (98-107) Carbon Dioxide Level 32 mmol/L (21-32) Anion Gap 6 (6-14) Blood Urea Nitrogen 13 mg/dL (8-26) Creatinine 0.7 mg/dL (0.7-1.3) Estimated GFR (Cockcroft-Gault) 139.2 Glucose Level 119 mg/dL (70-99) Calcium Level 9.0 mg/dL (8.5-10.1) Medications Active Scripts Medications Dose Route/Sig Max Daily Dose Days Date Category Ventolin Hfa Inhaler (Albuterol Sulfate) 18 Gm Hfa.aer.ad 2 Puff INH Q4HRS 11/20/16 Reported Combivent Respimat Inhal (Ipratropium/Albuterol Sulfate) 4 Gm Aer.w.adap 2 Inh IH QID 8/19/17 Reported Flonase Allergy Relief (Fluticasone Propionate) 9.9 Ml [place].susp 2 Sprays NS DAILY 11/20/16 Reported Xanax (Alprazolam) 0.5 Mg Tablet 1 Tab PO TID 11/20/16 Reported Duoneb 0.5-3(2.5) Mg/3 Ml (Albuterol/Ipratropium) 3 Ml Ampul.neb 3 Ml NEB RTQID 04/02/16 Rx Montelukast Sodium Tablet (Montelukast Sodium) 10 Mg Tablet 5 Mg PO HS 04/02/16 Rx Spiriva (Tiotropium [place]) 18 Mcg Cap.w.dev 2 Inh IH DAILY 04/02/16 Rx Hydrochlorothiazide Tablet (Hydrochlorothiazide) 25 Mg Tablet 1 Tab PO DAILY 04/01/16 Reported Bupropion HCl ER (Bupropion HCl) 200 Mg Tablet.er 150 Mg PO BID 04/01/16 Reported Aspir 81 (Aspirin) 81 Mg Tablet.dr 1 Tab PO DAILY 04/01/16 Reported Clonazepam 0.5 Mg Tablet 1 Tab PO PRN TID PRN 04/01/16 Reported Pravastatin Sodium 40 Mg Tablet 1 Tab PO QHS 04/01/16 Reported Advair 250-50 Diskus (Fluticasone/Salmeterol) 1 Each Disk.w.dev 1 Puff IH BID 03/24/16 Rx Duoneb 0.5-3(2.5) Mg/3 Ml (Albuterol/Ipratropium) 3 Ml Ampul.neb 3 Ml NEB Q4HRS PRN 03/20/16 Reported Trazodone Hcl 100 Mg Tablet 1 Tab PO QHS 01/26/16 Reported Impression . 1. Dyspnea secondary to acute exacerbation of chronic obstructive pulmonary disease in a patient who has 44 years of tobacco use and has ongoing tobaccoism down to 3 cigarettes a day. 2. Chronic hypoxic respiratory failure. He is on home oxygen at 3 liters. 3. History of sleep apnea diagnosed in [place]. He had a CPAP, but due to noncompliance, CPAP machine was taken away. Now, he is on the [place] side and is not eligible for a CPAP machine. Plan . 1. Smoking cessation counseling provided. 2. Continue with present oxygen. 3. Continue present bronchodilators. 4. I have advised him that if he is using DuoNebs, he should not be using Spiriva. He can use Combivent inhaler at home with p.r.n. Pro. I would also place him back on Advair at discharge; he was taking it at home. 5. Weight loss is advised. Unfortunately, he would not be covered for CPAP due to [place] Medicaid. 6. constipation per PCP CHERY CHAIDEZ MD Nov 23, 2016 09:29
[2016-11-23 11:00] VITALS: BP 108/90
--- NOTE | 2016-11-23 13:10 | PDOC ---
PROGRESS NOTES Chief Complaint Chief Complaint acute on chronic hypoxic resp failure with copd copd exacerbation MELISSA on home bipap, but not recently with insurance issues O2 dependent COPD, GERD, hepatitis? osteoarthritis, anxiety, depression. constipation tobaccoism post nasal drip plan: fu with pulm on pulmicort duoneb, albuterol prn prednisone 40mg daily dvt, gi ppx add flonase add stool softner on NC 3L, keep SAT >90% educated dc smoking dc tmr History of Present Illness History of Present Illness still sob, mild on NC 3 l, home o2 3L required his home meds and demands pharmacy to give his meds as what he is doing at home c/p post nasal drip required bipap, but his new [place] insurance wont cover for outpt no BM x4ds ROS: no fever, chills, chest pain Vitals Vitals Vital Signs Date Time Temp Pulse Resp B/P (MAP) Pulse Ox O2 Delivery O2 Flow Rate FiO2 11/23/16 12:12 98 Nasal Cannula 3.0 11/23/16 11:00 88 20 108/90 (96) 11/23/16 07:00 97.5 97.5 Physical Exam General: Alert, Oriented X3, Cooperative Heart: Regular rate, Normal S1 Lungs: Clear Abdomen: Normal bowel sounds, Soft Extremities: No clubbing, No cyanosis Skin: No rashes Labs LABS Laboratory Tests Test 11/23/16 04:25 White Blood Count 8.0 x10^3/uL (4.0-11.0) Red Blood Count 4.49 x10^6/uL (4.30-5.70) Hemoglobin 12.7 g/dL (13.0-17.5) Hematocrit 38.8 % (39.0-53.0) Mean Corpuscular Volume 86 fL (79-100) Mean Corpuscular Hemoglobin 28 pg (25-35) Mean Corpuscular Hemoglobin Concent 33 g/dL (31-37) Red Cell Distribution Width 14.4 % (11.5-14.5) Platelet Count 202 x10^3/uL (140-400) Neutrophils (%) (Auto) 59 % (31-73) Lymphocytes (%) (Auto) 30 % (24-48) Monocytes (%) (Auto) 9 % (0-9) Eosinophils (%) (Auto) 0 % (0-3) Basophils (%) (Auto) 1 % (0-3) Neutrophils # (Auto) 4.7 x10^3uL (1.8-7.7) Lymphocytes # (Auto) 2.4 x10^3/uL (1.0-4.8) Monocytes # (Auto) 0.7 x10^3/uL (0.0-1.1) Eosinophils # (Auto) 0.0 x10^3/uL (0.0-0.7) Basophils # (Auto) 0.1 x10^3/uL (0.0-0.2) Sodium Level 142 mmol/L (136-145) Potassium Level 4.0 mmol/L (3.5-5.1) Chloride Level 104 mmol/L (98-107) Carbon Dioxide Level 32 mmol/L (21-32) Anion Gap 6 (6-14) Blood Urea Nitrogen 13 mg/dL (8-26) Creatinine 0.7 mg/dL (0.7-1.3) Estimated GFR (Cockcroft-Gault) 139.2 Glucose Level 119 mg/dL (70-99) Calcium Level 9.0 mg/dL (8.5-10.1) Assessment and Plan Assessmemt and Plan Problems Medical Problems: (1) COPD (chronic obstructive pulmonary disease) Status: Acute (2) COPD with acute exacerbation Status: Acute (3) Respiratory failure Status: Acute (4) Respiratory failure with hypoxia Status: Acute Problems: Comment Review of Relevant I have reviewed the following items kyleigh (where applicable) has been applied. Labs Laboratory Tests Test 11/23/16 04:25 White Blood Count 8.0 x10^3/uL (4.0-11.0) Red Blood Count 4.49 x10^6/uL (4.30-5.70) Hemoglobin 12.7 g/dL (13.0-17.5) Hematocrit 38.8 % (39.0-53.0) Mean Corpuscular Volume 86 fL (79-100) Mean Corpuscular Hemoglobin 28 pg (25-35) Mean Corpuscular Hemoglobin Concent 33 g/dL (31-37) Red Cell Distribution Width 14.4 % (11.5-14.5) Platelet Count 202 x10^3/uL (140-400) Neutrophils (%) (Auto) 59 % (31-73) Lymphocytes (%) (Auto) 30 % (24-48) Monocytes (%) (Auto) 9 % (0-9) Eosinophils (%) (Auto) 0 % (0-3) Basophils (%) (Auto) 1 % (0-3) Neutrophils # (Auto) 4.7 x10^3uL (1.8-7.7) Lymphocytes # (Auto) 2.4 x10^3/uL (1.0-4.8) Monocytes # (Auto) 0.7 x10^3/uL (0.0-1.1) Eosinophils # (Auto) 0.0 x10^3/uL (0.0-0.7) Basophils # (Auto) 0.1 x10^3/uL (0.0-0.2) Sodium Level 142 mmol/L (136-145) Potassium Level 4.0 mmol/L (3.5-5.1) Chloride Level 104 mmol/L (98-107) Carbon Dioxide Level 32 mmol/L (21-32) Anion Gap 6 (6-14) Blood Urea Nitrogen 13 mg/dL (8-26) Creatinine 0.7 mg/dL (0.7-1.3) Estimated GFR (Cockcroft-Gault) 139.2 Glucose Level 119 mg/dL (70-99) Calcium Level 9.0 mg/dL (8.5-10.1) Laboratory Tests Test 11/23/16 04:25 White Blood Count 8.0 x10^3/uL (4.0-11.0) Red Blood Count 4.49 x10^6/uL (4.30-5.70) Hemoglobin 12.7 g/dL (13.0-17.5) Hematocrit 38.8 % (39.0-53.0) Mean Corpuscular Volume 86 fL (79-100) Mean Corpuscular Hemoglobin 28 pg (25-35) Mean Corpuscular Hemoglobin Concent 33 g/dL (31-37) Red Cell Distribution Width 14.4 % (11.5-14.5) Platelet Count 202 x10^3/uL (140-400) Neutrophils (%) (Auto) 59 % (31-73) Lymphocytes (%) (Auto) 30 % (24-48) Monocytes (%) (Auto) 9 % (0-9) Eosinophils (%) (Auto) 0 % (0-3) Basophils (%) (Auto) 1 % (0-3) Neutrophils # (Auto) 4.7 x10^3uL (1.8-7.7) Lymphocytes # (Auto) 2.4 x10^3/uL (1.0-4.8) Monocytes # (Auto) 0.7 x10^3/uL (0.0-1.1) Eosinophils # (Auto) 0.0 x10^3/uL (0.0-0.7) Basophils # (Auto) 0.1 x10^3/uL (0.0-0.2) Sodium Level 142 mmol/L (136-145) Potassium Level 4.0 mmol/L (3.5-5.1) Chloride Level 104 mmol/L (98-107) Carbon Dioxide Level 32 mmol/L (21-32) Anion Gap 6 (6-14) Blood Urea Nitrogen 13 mg/dL (8-26) Creatinine 0.7 mg/dL (0.7-1.3) Estimated GFR (Cockcroft-Gault) 139.2 Glucose Level 119 mg/dL (70-99) Calcium Level 9.0 mg/dL (8.5-10.1) Medications Current Medications Albuterol Sulfate (Ventolin Neb Soln) 2.5 mg STK-MED ONCE .ROUTE ; Start at 20:25; Stop 11/20/16 at 20:26; Status DC Methylprednisolone Sodium Succinate (SOLU-Medrol 125MG VIAL) 125 mg 1X ONCE IV Last administered on 11/20/16 20:53; Start 11/20/16 at 20:45; Stop 11/20/16 at 20:46; Status DC Albuterol Sulfate (Ventolin Neb Soln) 10 mg 1X ONCE CONT NEB Last administered on 11/20/16 20:33; Start 11/20/16 at 20:45; Stop 11/20/16 at 20:46 ; Status DC Alprazolam (Xanax) 0.5 mg TID PO Last administered on 11/23/16 08:17; Start at 09:00 Aspirin (Ecotrin) 81 mg DAILY PO Last administered on 11/23/16 08:17; Start at 09:00 Clonazepam (KlonoPIN) 0.5 mg PRN TID PRN PO ANXIETY / AGITATION Last administered on 11/21/16 00:02; Start 11/20/16 at 23:45 Hydrochlorothiazide (Hydrodiuril) 25 mg DAILY PO Last administered on 08:17; Start 11/21/16 at 09:00 Albuterol Sulfate (Ventolin Neb Soln) 2.5 mg PRN Q4HRS PRN NEB SHORTNESS OF BREATH Last administered on 11/23/16 02:42; Start 11/20/16 at 23:45 Albuterol/ Ipratropium (Duoneb) 3 ml RTQID NEB Last administered on 11/23/16 12:12; Start 11/21/16 at 08:00 Montelukast Sodium (Singulair) 5 mg HS PO Last administered on 11/22/16 21:21 ; Start 11/21/16 at 21:00 Trazodone HCl (Desyrel) 100 mg QHS PO Last administered on 11/22/16 21:20; Start 11/21/16 at 21:00 Non-Formulary Medication 2 puff Q4HRS INH ; Start 11/21/16 at 00:00; Status UNV Bupropion HCl (Wellbutrin Sr) 150 mg BID PO Last administered on 11/23/16 08: 17; Start 11/21/16 at 09:00 Fluticasone Propionate (Flonase) 2 spray DAILY NS Last administered on 08:18; Start 11/21/16 at 09:00; Stop 11/23/16 at 10:49; Status DC Budesonide (Pulmicort) 0.5 mg RTBID NEB Last administered on 11/23/16 07:17; Start 11/21/16 at 08:00 Non-Formulary Medication 2 inh QID IH ; Start 11/21/16 at 09:00; Status UNV Atorvastatin Calcium (Lipitor) 10 mg QHS PO Last administered on 11/22/16 21: 21; Start 11/21/16 at 21:00 Non-Formulary Medication 2 inh DAILY IH ; Start 11/21/16 at 09:00; Status UNV Acetaminophen (Tylenol) 650 mg PRN Q6HRS PRN PO MILD PAIN / TEMP Last administered on 11/21/16 14:17; Start 11/20/16 at 23:45 Pneumococcal Polyvalent Vaccine (Do NOT chart on this placeholder) 1 each 1X ONCE MC ; Start 11/21/16 at 01:00; Stop 11/21/16 at 01:01; Status UNV Prednisone (Prednisone) 40 mg DAILY PO Last administered on 11/23/16 08:17; Start 11/21/16 at 11:30 Pantoprazole Sodium (Protonix) 40 mg DAILYAC PO Last administered on 11/23/16 07:41; Start 11/21/16 at 11:30 Enoxaparin Sodium (Lovenox 40mg Syringe) 40 mg Q24H SQ Last administered on 14:44; Start 11/21/16 at 16:00 Fluticasone Propionate (Flonase) 2 spray DAILY NS Last administered on 08:19; Start 11/22/16 at 15:30 Active Scripts Active Duoneb 0.5-3(2.5) Mg/3 Ml (Albuterol/Ipratropium) 3 Ml Ampul.neb 3 Ml NEB RTQID Montelukast Sodium Tablet (Montelukast Sodium) 10 Mg Tablet 5 Mg PO HS Spiriva (Tiotropium [place]) 18 Mcg Cap.w.dev 2 Inh IH DAILY Advair 250-50 Diskus (Fluticasone/Salmeterol) 1 Each Disk.w.dev 1 Puff IH BID Reported Ventolin Hfa Inhaler (Albuterol Sulfate) 18 Gm Hfa.aer.ad 2 Puff INH Q4HRS Combivent Respimat Inhal (Ipratropium/Albuterol Sulfate) 4 Gm Aer.w.adap 2 Inh IH QID Flonase Allergy Relief (Fluticasone Propionate) 9.9 Ml Rudy.susp 2 Sprays NS DAILY Xanax (Alprazolam) 0.5 Mg Tablet 1 Tab PO TID Hydrochlorothiazide Tablet (Hydrochlorothiazide) 25 Mg Tablet 1 Tab PO DAILY Bupropion HCl ER (Bupropion HCl) 200 Mg Tablet.er 150 Mg PO BID Aspir 81 (Aspirin) 81 Mg Tablet.dr 1 Tab PO DAILY Clonazepam 0.5 Mg Tablet 1 Tab PO PRN TID PRN Pravastatin Sodium 40 Mg Tablet 1 Tab PO QHS Duoneb 0.5-3(2.5) Mg/3 Ml (Albuterol/Ipratropium) 3 Ml Ampul.neb 3 Ml NEB Q4HRS PRN Trazodone Hcl 100 Mg Tablet 1 Tab PO QHS Vitals/I & O Vital Sign - Last 24 Hours 11/22/16 11/22/16 11/22/16 11/22/16 15:00 15:08 19:00 19:17 Temp 97.7 98.1 97.7 98.1 Pulse 92 92 Resp 20 20 B/P (MAP) 106/88 (94) 134/86 (102) Pulse Ox 98 98 92 O2 Delivery Room Air Nasal Cannula Room Air Nasal Cannula O2 Flow Rate 3.0 3.0 11/22/16 11/22/16 11/23/16 11/23/16 20:00 23:00 02:48 07:00 Temp 97.5 97.5 97.5 97.5 Pulse 89 97 Resp 20 20 B/P (MAP) 123/85 (98) 107/83 (91) Pulse Ox 96 99 95 O2 Delivery Nasal Cannula Room Air Nasal Cannula Room Air O2 Flow Rate 3.0 3.0 11/23/16 11/23/16 11/23/16 11/23/16 07:19 08:00 11:00 12:12 Pulse 88 Resp 20 B/P (MAP) 108/90 (96) Pulse Ox 99 99 98 O2 Delivery Nasal Cannula Nasal Cannula Room Air Nasal Cannula O2 Flow Rate 3.0 3.0 3.0 Intake and Output 11/22/16 11/22/16 11/23/16 15:00 23:00 07:00 Intake Total 750 ml 1000 ml 720 ml Output Total 550 ml Balance 750 ml 450 ml 720 ml AUGUSTIN MELLO MD Nov 23, 2016 13:10
[2016-11-23] MEDS ORDERED: MAGNESIUM HYDROXIDE 2,400 MG/30 ML ORAL.SUSP. PO PRN (13:15)
[2016-11-23 14:49] VITALS: BP 131/84
[2016-11-23] MEDS: ENOXAPARIN 40 MG/0.4 ML SYRINGE. SQ SCH (16:40)
[2016-11-23 19:00] VITALS: BP 135/86
[2016-11-23] MEDS: DOCUSATE SODIUM 100 MG CAPSULE. PO SCH (20:23)
[2016-11-23] MEDS: ATORVASTATIN CALCIUM 10 MG TABLET. PO SCH (20:23)
[2016-11-23] MEDS: MONTELUKAST SODIUM 10 MG TABLET. PO SCH (20:24)
[2016-11-23] MEDS: traZODone 100 MG TABLET. PO SCH (20:24)
[2016-11-23] MEDS: SENNOSIDES/DOCUSATE 8.6/50MG TABLET. PO SCH (20:24)
[2016-11-23] MEDS: ACETAMINOPHEN 325 MG TABLET. PO PRN (20:26)
[2016-11-23 23:00] VITALS: BP 125/93
[2016-11-24 03:04] VITALS: BP 119/99
[2016-11-24 07:00] VITALS: BP 114/85
[2016-11-24] MEDS: IPRATRPIUM/ALBUTEROL 0.5/2.5MG 3 ML NEBU. NEB SCH ×2 (08:00→11:34)
[2016-11-24] MEDS: BUDESONIDE 0.5 MG/2 ML NEBU. NEB SCH (08:00)
[2016-11-24] MEDS: ASPIRIN ENTERIC COATED 81 MG TABLET.DR. PO SCH (08:38)
[2016-11-24] MEDS: predniSONE 20 MG TABLET PO SCH (08:38)
[2016-11-24] MEDS: SENNOSIDES/DOCUSATE 8.6/50MG TABLET. PO SCH ×2 (08:38→08:41)
[2016-11-24] MEDS: buPROPion SR 150 MG TABLET.SA PO SCH (08:38)
[2016-11-24] MEDS: ALPRAZolam 0.5 MG TABLET PO SCH ×2 (08:38→13:56)
[2016-11-24] MEDS: hydroCHLOROthiazide 25 MG TABLET PO SCH (08:38)
[2016-11-24] MEDS: DOCUSATE SODIUM 100 MG CAPSULE. PO SCH ×2 (08:38→08:40)
[2016-11-24] MEDS: PANTOPRAZOLE 40 MG TABLET.DR. PO SCH (08:38)
[2016-11-24] MEDS: FLUTICASONE 50MCG/NASAL SPRAY 16GM BOTTLE. NS SCH (08:39)
[2016-11-24 11:00] VITALS: BP 120/78
[2016-11-24] MEDS ORDERED: IPRA4AER IH (11:05)
[2016-11-24] MEDS ORDERED: ALPR0.5T PO (11:05)
[2016-11-24] MEDS ORDERED: FLUT1DIS3 IH (11:05)
--- NOTE | 2016-11-24 11:09 | PDOC ---
PULMONARY PROGRESS NOTES Subjective c/o constipation no soa, has nasal congestion, has cough, not able to cough up sputum, no pain, bipap helped him Vitals Vital Signs Date Time Temp Pulse Resp B/P (MAP) Pulse Ox O2 Delivery O2 Flow Rate FiO2 11/24/16 08:02 98 Nasal Cannula 2.0 11/24/16 07:00 97.7 78 20 114/85 (95) 97.7 ROS: No Nausea, No Chest Pain General: Alert, No acute distress HEENT: Other (nc at perrl. ) Lungs: Other (deminished) Cardiovascular: S1, S2 Abdomen: Soft, Non-tender Neuro Exam: Alert, Oriented Extremities: No Edema Skin: Warm Labs Laboratory Tests Test 11/23/16 04:25 White Blood Count 8.0 x10^3/uL (4.0-11.0) Red Blood Count 4.49 x10^6/uL (4.30-5.70) Hemoglobin 12.7 g/dL (13.0-17.5) Hematocrit 38.8 % (39.0-53.0) Mean Corpuscular Volume 86 fL (79-100) Mean Corpuscular Hemoglobin 28 pg (25-35) Mean Corpuscular Hemoglobin Concent 33 g/dL (31-37) Red Cell Distribution Width 14.4 % (11.5-14.5) Platelet Count 202 x10^3/uL (140-400) Neutrophils (%) (Auto) 59 % (31-73) Lymphocytes (%) (Auto) 30 % (24-48) Monocytes (%) (Auto) 9 % (0-9) Eosinophils (%) (Auto) 0 % (0-3) Basophils (%) (Auto) 1 % (0-3) Neutrophils # (Auto) 4.7 x10^3uL (1.8-7.7) Lymphocytes # (Auto) 2.4 x10^3/uL (1.0-4.8) Monocytes # (Auto) 0.7 x10^3/uL (0.0-1.1) Eosinophils # (Auto) 0.0 x10^3/uL (0.0-0.7) Basophils # (Auto) 0.1 x10^3/uL (0.0-0.2) Sodium Level 142 mmol/L (136-145) Potassium Level 4.0 mmol/L (3.5-5.1) Chloride Level 104 mmol/L (98-107) Carbon Dioxide Level 32 mmol/L (21-32) Anion Gap 6 (6-14) Blood Urea Nitrogen 13 mg/dL (8-26) Creatinine 0.7 mg/dL (0.7-1.3) Estimated GFR (Cockcroft-Gault) 139.2 Glucose Level 119 mg/dL (70-99) Calcium Level 9.0 mg/dL (8.5-10.1) Medications Active Scripts Medications Dose Route/Sig Max Daily Dose Days Date Category Ventolin Hfa Inhaler (Albuterol Sulfate) 18 Gm Hfa.aer.ad 2 Puff INH Q4HRS 11/20/16 Reported Combivent Respimat Inhal (Ipratropium/Albuterol Sulfate) 4 Gm Aer.w.adap 2 Inh IH QID 11/20/16 Reported Flonase Allergy Relief (Fluticasone Propionate) 9.9 Ml [place].susp 2 Sprays NS DAILY 11/20/16 Reported Xanax (Alprazolam) 0.5 Mg Tablet 1 Tab PO TID 11/20/16 Reported Duoneb 0.5-3(2.5) Mg/3 Ml (Albuterol/Ipratropium) 3 Ml Ampul.neb 3 Ml NEB RTQID 04/02/16 Rx Montelukast Sodium Tablet (Montelukast Sodium) 10 Mg Tablet 5 Mg PO HS 04/02/16 Rx Spiriva (Tiotropium Belk) 18 Mcg Cap.w.dev 2 Inh IH DAILY 04/02/16 Rx Hydrochlorothiazide Tablet (Hydrochlorothiazide) 25 Mg Tablet 1 Tab PO DAILY 04/01/16 Reported Bupropion HCl ER (Bupropion HCl) 200 Mg Tablet.er 150 Mg PO BID 04/01/16 Reported Aspir 81 (Aspirin) 81 Mg Tablet.dr 1 Tab PO DAILY 04/01/16 Reported Clonazepam 0.5 Mg Tablet 1 Tab PO PRN TID PRN 04/01/16 Reported Pravastatin Sodium 40 Mg Tablet 1 Tab PO QHS 04/01/16 Reported Advair 250-50 Diskus (Fluticasone/Salmeterol) 1 Each Disk.w.dev 1 Puff IH BID 03/24/16 Rx Duoneb 0.5-3(2.5) Mg/3 Ml (Albuterol/Ipratropium) 3 Ml Ampul.neb 3 Ml NEB Q4HRS PRN 03/20/16 Reported Trazodone Hcl 100 Mg Tablet 1 Tab PO QHS 01/26/16 Reported Impression . 1. Dyspnea secondary to acute exacerbation of chronic obstructive pulmonary disease in a patient who has 44 years of tobacco use and has ongoing tobaccoism down to 3 cigarettes a day. 2. Chronic hypoxic respiratory failure. He is on home oxygen at 3 liters. 3. History of sleep apnea diagnosed in [place]. per pt and rn, the pt has a program which can provide bipap for him, he has asha and chronic resp fail, he would benefit from bipap 4. allergic rhinitis Plan . 1. Smoking cessation counseling provided. 2. Continue with present oxygen. 3. Continue present bronchodilators. 4. I have advised him that if he is using DuoNebs, he should not be using Spiriva. He can use Combivent inhaler at home with p.r.n. ProAir. I would also place him back on Advair at discharge; he was taking it at home. 5. Weight loss is advised. 6. constipation per PCP 7. add singulair. 8. add mucinex 9 bipap 03/11 w 02 3 lpm bled in to use during sleep 10. prednison w taper discussed w rn, pt MANAV CANTOR MD Nov 24, 2016 11:09
--- NOTE | 2016-11-24 13:44 | PDOC3 ---
Discharge Summary [facility] Date of Admission: Nov 20, 2016 Discharge Date: Nov 24, 2016 Admitting Diagnosis acute on chronic hypoxic resp failure with copd copd exacerbation MELISSA on home bipap, but not recently with insurance issues O2 dependent COPD, GERD, hepatitis? osteoarthritis, anxiety, depression. constipation tobaccoism post nasal drip Problems: Final Diagnosis CONSULTS pulm Brief Hospital Course Mr. Goodman is a 61 old M, smoker, comes for sob. no cough. he has home o2 3l as baseline. use bipap at home, not recently since [place] insurance wont cover for [place]. + bl wheezing, resolved with prednisone 40mg daily, duoneb. dc home with combivent, advair, ventolin prn, singular(but pt refused), and xanax 0.5mg 15pills. pulm will also give prescript for bipap fax to insurance. dc time 35min General: Alert, Oriented X3, Cooperative Heart: Regular rate, Normal S1 Lungs: bl decreased bs, no wheezing Abdomen: Normal bowel sounds, Soft Extremities: No clubbing, No cyanosis Skin: No rashes Problems: Disposition home CONDITION AT DISCHARGE: Improved, Stable Diet regular Scheduled Albuterol Sulfate (Ventolin Hfa Inhaler), 2 PUFF INH Q4HRS, (Reported) Alprazolam (Xanax), 1 TAB PO TID Aspirin (Aspir 81), 1 TAB PO DAILY, (Reported) Bupropion HCl (Bupropion HCl ER), 150 MG PO BID, (Reported) Fluticasone Propionate (Flonase Allergy Relief), 2 SPRAYS NS DAILY, (Reported) Fluticasone/Salmeterol (Advair 250-50 Diskus), 1 PUFF IH BID Hydrochlorothiazide (Hydrochlorothiazide Tablet ), 1 TAB PO DAILY, (Reported) Ipratropium/Albuterol Sulfate (Combivent Respimat Inhal), 2 INH IH QID Montelukast Sodium (Montelukast Sodium Tablet), 5 MG PO HS Pravastatin Sodium (Pravastatin Sodium), 1 TAB PO QHS, (Reported) Tiotropium [place] (Spiriva), 2 INH IH DAILY Trazodone Hcl (Trazodone Hcl), 1 TAB PO QHS, (Reported) Scheduled PRN Clonazepam (Clonazepam), 1 TAB PO PRN TID PRN for ANXIETY / AGITATION, (Reported ) Ipratropium/Albuterol Sulfate (Duoneb 0.5-3(2.5) Mg/3 Ml), 3 ML NEB Q4HRS PRN for SHORTNESS OF BREATH, (Reported) Discontinued Medications Ipratropium/Albuterol Sulfate (Duoneb 0.5-3(2.5) Mg/3 Ml), 3 ML NEB RTQID Follow Up pcp and pulm in 2 weeks AUGUSTIN MELLO MD Nov 24, 2016 13:44
[2016-11-24] MEDS ORDERED: MONTELUKAST SODIUM 10 MG TABLET. PO SCH (21:00)
== END 2016-11-24 14:52 | disposition home or self-care (01) | DRG 189 ==
LOC: ER 20:22 → 6 SOUTH 22:37 → 5 NORTH 11-21 19:50
PROVIDERS: ADMIT Internal Medicine Hematology & Oncology; ATTEND Internal Medicine Hematology & Oncology
DX: J96.21 Acute and chronic respiratory failure with hypoxia (principal); I11.0 Hypertensive heart disease with heart failure; Z99.81 Dependence on supplemental oxygen; I50.9 Heart failure, unspecified; J44.1 Chronic obstructive pulmonary disease with (acute) exacerbation; F17.210 Nicotine dependence, cigarettes, uncomplicated; F32.9 Major depressive disorder, single episode, unspecified; F41.9 Anxiety disorder, unspecified; G47.33 Obstructive sleep apnea (adult) (pediatric); K21.9 Gastro-esophageal reflux disease without esophagitis; M19.90 Unspecified osteoarthritis, unspecified site; Z91.19 Patient's noncompliance with other medical treatment and regimen; Z91.040 Latex allergy status; J30.9 Allergic rhinitis, unspecified; K75.9 Inflammatory liver disease, unspecified
CPT/HCPCS: 36415; 71010; 80048; 80053; 83880; 84484; 85025; 87641; 93005; 94250; 94640; 94644; 94760; 96374; 99406; 99407; J1650; J2930; J7512; J7613; J7620; J7626; 99285-25

== ENCOUNTER 2016-12-07 07:48 | Emergency (ER) | payer OTHER ==
[~2016-12-07 07:48] MED LIST changes: +IPRA4AER IH
[2016-12-07 07:55] VITALS: BP 129/84
[2016-12-07] MEDS ORDERED: predniSONE 10 MG TABLET PO ONE (08:15)
[2016-12-07] MEDS ORDERED: IPRATRPIUM/ALBUTEROL 0.5/2.5MG 3 ML NEBU. NEB ONE (08:15)
[2016-12-07 08:17] LABS: BASO % 1 % (0-3); EOS % 1 % (0-3); HEMATOCRIT 39.1 % (39.0-53.0); HEMOGLOBIN 12.9 g/dL (13.0-17.5); LYMPH # 1.8 x10^3/uL (1.0-4.8); LYMPH % 25 % (24-48); MEAN CORPUSCULAR HEMOGLOBIN 28 pg (25-35); MEAN CORPUSCULAR HGB CONC 33 g/dL (31-37); MEAN CORPUSCULAR VOLUME 86 fL (79-100); MONO % 14 % (0-9); NEUT % 60 % (31-73); PLATELET COUNT 216 x10^3/uL (140-400); RED BLOOD COUNT 4.58 x10^6/uL (4.30-5.70); RED CELL DISTRIBUTION WIDTH 14.1 % (11.5-14.5); WHITE BLOOD COUNT 7.3 x10^3/uL (4.0-11.0)
--- NOTE | 2016-12-07 08:31 | PHYS DOC ---
Past Medical History Past Medical History: Anxiety, CHF, COPD, Depression, Hypertension, Hepatitis Past Surgical History: Other Additional Past Surgical Histo: R. HAND, L. LEG Alcohol Use: None Drug Use: None Adult General Chief Complaint Chief Complaint: SHORTNESS OF BREATH HPI HPI Patient is a 61 year old male who is a current smoker who presents with complaints of shortness of breath similar to previous COPD episodes. Patient is having a nonproductive cough, denies sick contacts. Patient denies any new swelling or leg pain. Patient states he has discomfort when he takes a deep breath. Patient denies any fevers, chills, vomiting, diarrhea, back pain or neck pain or chest pain or abdominal pain. Review of Systems Review of Systems Constitutional: Denies fever or chills [] Eyes: Denies change in visual acuity, redness, or eye pain [] HENT: Denies nasal congestion or sore throat [] Respiratory: Yes to cough and shortness of breath Cardiovascular: No additional information not addressed in HPI [] GI: Denies abdominal pain, nausea, vomiting, or diarrhea [] : Denies dysuria or hematuria [] Musculoskeletal: Denies back pain or joint pain [] Integument: Denies rash or skin lesions [] Neurologic: Denies headache, focal weakness or sensory changes [] Current Medications Current Medications Current Medications Medications (Trade) Dose Ordered Sig/Isabel Start Time Stop Time Status Last Admin Dose Admin Albuterol/ Ipratropium (Duoneb) 3 ml 1X ONCE 12/07/16 08:15 12/07/16 08:16 DC 12/07/16 08:24 3 ML Prednisone (Prednisone) 50 mg 1X ONCE 12/07/16 08:15 12/07/16 08:16 DC 12/07/16 08:21 50 MG Allergies Allergies Allergies Coded Allergies Type Severity Reaction Last Updated Verified latex Allergy Intermediate 08/13/16 Yes I S O L A T I O N *CONTACT* Allergy Unknown 03/31/16 Yes Physical Exam Physical Exam Constitutional: Well developed, well nourished, no acute distress, non-toxic appearance. [] HENT: Normocephalic, atraumatic, bilateral external ears normal, oropharynx moist, no oral exudates, nose normal. [] Eyes: conjunctiva normal, no discharge. [] Neck: Normal range of motion, no tenderness, supple, no stridor. No JVD, no LAD , no meningeal signs Cardiovascular:Heart rate regular rhythm, no murmur, equal pulses, normal perfusion Lungs & Thorax: Diffuse expiratory wheezing bilaterally, no rhonchi, no Rales Abdomen: Bowel sounds normal, soft, no tenderness, no masses, no pulsatile masses. [] Skin: Warm, dry, no erythema, no rash. [] Back: No tenderness, no CVA tenderness. Normal range of motion Extremities: No tenderness, no cyanosis, no DVT, ROM intact, no edema. [] Neurologic: Alert and oriented X 3, normal motor function, , no focal deficits noted. [] Psychologic: Affect normal, judgement normal, mood normal. [] Current Patient Data Vital Signs Vital Signs Date Time Temp Pulse Resp B/P (MAP) Pulse Ox O2 Delivery O2 Flow Rate FiO2 12/07/16 08:27 98 Nasal Cannula 2.0 12/07/16 07:55 98.8 97 18 129/84 (99) 98.8 Lab Values Laboratory Tests Test 12/07/16 07:55 White Blood Count 7.3 x10^3/uL (4.0-11.0) Red Blood Count 4.58 x10^6/uL (4.30-5.70) Hemoglobin 12.9 g/dL (13.0-17.5) L Hematocrit 39.1 % (39.0-53.0) Mean Corpuscular Volume 86 fL (79-100) Mean Corpuscular Hemoglobin 28 pg (25-35) Mean Corpuscular Hemoglobin Concent 33 g/dL (31-37) Red Cell Distribution Width 14.1 % (11.5-14.5) Platelet Count 216 x10^3/uL (140-400) Neutrophils (%) (Auto) 60 % (31-73) Lymphocytes (%) (Auto) 25 % (24-48) Monocytes (%) (Auto) 14 % (0-9) H Eosinophils (%) (Auto) 1 % (0-3) Basophils (%) (Auto) 1 % (0-3) Neutrophils # (Auto) 4.4 x10^3uL (1.8-7.7) Lymphocytes # (Auto) 1.8 x10^3/uL (1.0-4.8) Monocytes # (Auto) 1.0 x10^3/uL (0.0-1.1) Eosinophils # (Auto) 0.0 x10^3/uL (0.0-0.7) Basophils # (Auto) 0.0 x10^3/uL (0.0-0.2) Sodium Level 142 mmol/L (136-145) Potassium Level 3.9 mmol/L (3.5-5.1) Chloride Level 102 mmol/L (98-107) Carbon Dioxide Level 34 mmol/L (21-32) H Anion Gap 6 (6-14) Blood Urea Nitrogen 8 mg/dL (8-26) Creatinine 0.6 mg/dL (0.7-1.3) L Estimated GFR (Cockcroft-Gault) 166.3 Glucose Level 128 mg/dL (70-99) H Calcium Level 9.0 mg/dL (8.5-10.1) Troponin I Quantitative < 0.017 ng/mL (0.000-0.055) GY-Vlc-Q-Type Natriuretic Peptide 29 pg/mL (0-124) Laboratory Tests 12/07/16 07:55 Laboratory Tests 12/07/16 07:55 EKG EKG 0753 93, no stemi, SR[] Radiology/Procedures Radiology/Procedures no acute findings in CXR[] Course & Med Decision Making Course & Med Decision Making Pertinent Labs and Imaging studies reviewed. (See chart for details) 0919 pt in nad, normal speech while talking to friends on phone. VS unremarkable. O2 sat 97% on 1 L. Pt has been extensively counseled regarding smoking cessation, risks and benefits explained including but not limited to decreased in risk of cancer. Total time 3 minutes. [] Dragon Disclaimer Dragon Disclaimer This electronic medical record was generated, in whole or in part, using a voice recognition dictation system. Departure Departure Impression: Primary Impression: COPD (chronic obstructive pulmonary disease) Additional Impressions: Tobacco abuse Tobacco abuse counseling Disposition: 01 HOME, SELF-CARE Condition: IMPROVED Referrals: UNKNOWN PCP NAME (PCP) His follow-up with your PCP for recheck and reevaluation in one to 2 days. Her symptoms worsen or new concerning symptoms develop please return to the ED immediately. You must stop smoking. Patient Instructions: Chronic Obstructive Pulmonary Disease, Smokeless Tobacco Use Additional Instructions: we have arranged for your nursing service to pick you up from the ED, as you told us they will provide you with your inhalers. Scripts Minocycline Hcl (MINOCYCLINE HCL) 100 Mg Tablet 1 TAB PO BID, #20 TAB Prov: Umm VASQUEZ MD 12/07/16 Problem Qualifiers Umm VASQUEZ MD Dec 07, 2016 08:31
--- NOTE | 2016-12-07 08:37 | RAD ---
Indication shortness of breath. History of COPD. A single view of the chest was obtained. Comparison is made to an examination 11/20/2016. The heart and pulmonary vessels appear normal. The lungs are clear. There is not been a significant change compared to the previous exam. IMPRESSION: No acute or focal process. No significant change.
[2016-12-07 08:38] LABS: CREATININE 0.6 mg/dL (0.7-1.3); GFR 166.3; POTASSIUM 3.9 mmol/L (3.5-5.1)
--- NOTE | 2016-12-07 09:31 | EKG ---
[facility] [address] [place] [address] Test Date: 2016-12-07 Test Time: 07:48:18 Pat Name: BRANDY JUNIOR Department: Room: Gender: M Web U[employer] Developer: : [id number] Requested By: Umm VASQUEZ Order Number: [id number] Reading MD: Eber Torrez Measurements Intervals [place] Rate: 93 P: 90 NV: 158 QRS: 16 QRSD: 84 T: 64 QT: 346 QTc: 433 Interpretive Statements SINUS RHYTHM NON-SPECIFIC ST/T CHANGES Electronically Signed On 12-07-2016 10:25:17 CDT by Ebre Torrez
[2016-12-07] MEDS ORDERED: MINO100T2 PO (09:32)
== END 2016-12-07 10:00 | disposition home or self-care (01) ==
LOC: ER 07:48
DX: J44.9 Chronic obstructive pulmonary disease, unspecified (principal); Z72.0 Tobacco use; I11.0 Hypertensive heart disease with heart failure; I50.9 Heart failure, unspecified; Z86.19 Personal history of other infectious and parasitic diseases; F41.9 Anxiety disorder, unspecified; F32.9 Major depressive disorder, single episode, unspecified; Z91.041 Radiographic dye allergy status; Z91.040 Latex allergy status
CPT/HCPCS: 36415; 71010; 80048; 83880; 84484; 85025; 93005; 94250; 94640; 94760; 99285; J7512; J7620